=== PATIENT | female | born 1935 | race Caucasian/White ===

== ENCOUNTER → 2019-09-16 | Emergency (ER) | payer MEDICARE, BC ==
[~2019-09-16] VITALS: Ht 154.9 cm; Wt 38.5 kg
[~2019-09-16] MED LIST: Chloraseptic (Phenol) Spray 177ml MM PRN; DULO20CA50 PO; ESTRADIOL; FESO4TAB PO; IBUP200C5 PO; LEVO25TA2 PO; LEVO75TA PO; LORA-268 PO; LORazepam 0.5 MG tablet PO ONE; LORazepam 0.5 MG tablet PO PRN; LORazepam 1 MG tablet PO ONE; LORazepam 2 mg/ml vial IM ONE; OLANZapine **IM** 10 mg inj. IM ONE; OLANZapine 5mg rapidly disint. tablet PO ONE; OXYB5TAB29 PO; POLY17PO10 PO; QUET25TA PO; QUETIAPINE 50 MG TAB.SR.24H PO SCH; QUETIAPINE 50 MG TAB.SR.24H PO STA; QUEtiapine 25mg tablet PO ONE; QUEtiapine 25mg tablet PO STA; RISP2TAB97 PO; acetaminophen 325mg tablet PO ONE; cloNIDine 0.1 mg tablet PO PRN; diphenhydrAMINE 25mg capsule PO ONE; docusate sod 100mg capsule PO ONE; duloxetine 20mg capsule.DR PO ONE; haloperidol 5mg tablet PO ONE; hyDROXYzine 50 mg/ml injection ***IM only IM ONE; hydrOXYzine 25 MG tablet PO ONE; ibuprofen tablet 400 MG TABLET PO ONE; levoTHYROXINE 25mcg tablet PO ONE; levoTHYROXINE 75mcg tablet PO SCH; nicotine 7mg patch - 24hr TD SCH; protein shake 8oz. (237ml) PO SCH; quetiapine 100mg tablet PO ONE; quetiapine 100mg tablet PO SCH; risperiDONE 0.5mg tablet PO ONE; risperiDONE 0.5mg tablet PO PRN; risperiDONE 2mg tablet PO ONE; sulfamethoxazole/trimethoprim DS (800/160mg) tablet PO ONE; traZODone 150mg tablet PO SCH; traZODone 50mg tablet PO SCH; traZODone 50mg tablet PO STA
[2019-09-16 15:40] LABS: BASOPHILS # (AUTO) 0.1 X10'3 (0-0.2); BASOPHILS % (AUTO) 1.4 % (0-1); EOSINOPHILS # (AUTO) 0.1 X10'3 (0-0.9); EOSINOPHILS % (AUTO) 0.9 % (0-6); HEMATOCRIT 40.2 % (35.0-45.0); HEMOGLOBIN 13.9 g/dl (12.0-16.0); LYMPHOCYTES # (AUTO) 1.4 X10'3 (1.1-4.8); LYMPHOCYTES % (AUTO) 19.1 % (21-51); MEAN CORPUSCULAR HEMOGLOBIN 29.8 PG (27.0-31.0); MEAN CORPUSCULAR HGB CONC 34.4 g/dL (33.0-36.5); MEAN CORPUSCULAR VOLUME 86.4 FL (78-98); MEAN PLATELET VOLUME 6.8 FL (7.4-10.4); MONOCYTES # (AUTO) 0.5 X10'3 (0-0.9); NEUTROPHILS # (AUTO) 5.4 X10'3 (1.8-7.7); NEUTROPHILS % (AUTO) 71.6 % (42-75); PLATELET COUNT 358 X10'3 (140-440); RED BLOOD COUNT 4.66 X10'6 (4.20-5.60); RED CELL DISTRIBUTION WIDTH 14.7 % (11.5-14.5); WHITE BLOOD COUNT 7.6 X10'3 (4.5-11.0)
[2019-09-16 15:52] LABS: URINE AMPHETAMINE SCREEN NEGATIVE (Neg); URINE BARBITUATE SCREEN NEGATIVE (Neg); URINE BENZODIAZEPINES SCREEN NEGATIVE (Neg); URINE CANNABINOID SCREEN NEGATIVE (Neg); URINE COCAINE SCREEN NEGATIVE (Neg); URINE METHADONE SCREEN NEGATIVE (Neg); URINE OPIATE SCREEN NEGATIVE (Neg); URINE PHENCYCLIDINE SCREEN NEGATIVE (Neg)
[2019-09-16 15:56] LABS: ALANINE AMINOTRANSFERASE 23 U/L (12-78); ALBUMIN 3.9 G/DL (3.4-5.0); ALBUMIN/GLOBULIN RATIO 0.9 (1.1-1.5); ALKALINE PHOSPHATASE 66 IU/L (46-116); ANION GAP 9 (8-16); ASPARTATE AMINO TRANSFERASE 26 U/L (10-37); BILIRUBIN,TOTAL 0.5 MG/DL (0.1-1.0); BLOOD UREA NITROGEN 30 MG/DL (7-18); BUN/CREATININE RATIO 18.1 (6.6-38.0); CALCIUM 9.1 MG/DL (8.5-10.1); CHLORIDE 99 MMOL/L (99-107); CREATININE 1.66 MG/DL (0.40-0.90); SODIUM 137 MMOL/L (135-145); TOTAL PROTEIN 8.4 G/DL (6.4-8.2); eGFR 29 ML/MIN
[2019-09-16 16:05] LABS: ETHANOL < 0.010 GM/DL (0.0-0.010)
[2019-09-16 16:09] LABS: GLUCOSE 102 MG/DL (70-104)
--- NOTE | 2019-09-16 16:14 | NUR ---
NOTIFIED BY DR ONTIVEROS THAT PATIENT IN E.D. WITH 515O PLACED BY POLICE. PATIENT DOES NOT HAVE POWER IN HER HOME AND IT IS VERY COLD IN HER HOME. PER DR. ONTIVEROS, SHE LIVES ALONE, AND HAS NO FAMILY SUPPORT. HER FAMILY DISOWNED BECAUSE HER OF HER DIFFICULT BEHAVIORS. HE WILL CALL [facility] AFTER HE CLEARS HER MEDICALLY. WILL FOLLOW. Addendum: 10/10/19 at 0459 by ALENA Patient given APAP PO for right hip pain which is frequent.
[2019-09-16 16:27] LABS: CLARITY,URINE CLEAR (Clear); COLOR,URINE YELLOW (Yellow); GLUCOSE, URINE NEGATIVE (Neg); KETONES,URINE NEGATIVE (Neg); LEUKOCYTE ESTERASE ,URINE TRACE (Neg); NITRITES, URINE NEGATIVE (Neg); OCCULT BLOOD,URINE TRACE-INTACT (Neg); PROTEIN,URINE NEGATIVE (Neg); UROBILINOGEN,URINE 0.2 E.U/dL (0.2-1.0)
--- NOTE | 2019-09-16 16:27 | NUR ---
Pt assessed and has a wound on her right 2nd toe. Pt states she sees the clerical production worker and he changes her dressings once a month. Pt refuses to have dressing removed.
[2019-09-16 16:32] LABS: UA COLLECTION TYPE CLN CATCH MIDSTREAM
[2019-09-16 16:33] LABS: BACTERIA,URINE FEW /HPF (Neg); MUCUS STRANDS FEW /LPF (Neg); RBC,URINE 0-2 /HPF (0-2); SQUAMOUS EPITHELIAL CELL,UR MANY /LPF (FEW); WBC,URINE 0-4 /HPF (0-4)
--- NOTE | 2019-09-16 18:43 | NUR ---
Sitting in bed eating dinner tray.
[2019-09-16] MEDS: ibuprofen 200mg tablet PO SCH (20:28)
[2019-09-16] MEDS: oxybutynin 5mg tablet PO SCH (20:28)
--- NOTE | 2019-09-16 22:31 | NUR ---
Pt c/o of pain in arms and "my heart" EKG done shown to Dr. Franco. No further orders. Pt given haldol per order resting quietly in bed at this time.
--- NOTE | 2019-09-17 00:12 | NUR ---
Pt given 25mg Benadryl per order for insomnia. Pt contues mutiple repetitve requests.
--- NOTE | 2019-09-17 00:50 | NUR ---
Still unable to sleep. Ambulated with stand by assist 3x around nurses station. To bathroom voided brushed teeth. Back in bed lying quietly at this time.
--- NOTE | 2019-09-17 01:49 | NUR ---
Pt sleeping. Restless at times tlks in her sleep.
--- NOTE | 2019-09-17 02:53 | NUR ---
Pt sleeping quietly at this time.
[2019-09-17] MEDS: levoTHYROXINE 25mcg tablet PO SCH (07:56)
[2019-09-17] MEDS: oxybutynin 5mg tablet PO SCH ×2 (07:56→20:24)
--- NOTE | 2019-09-17 08:35 | NUR ---
SAFETY BREAKFAST TRAY DELIVERED TO BEDSIDE.
--- NOTE | 2019-09-17 09:06 | NUR ---
ASSUMED CARE OF PATIENT. RECEIVED REPORT FOR GRACE BENITEZ
--- NOTE | 2019-09-17 10:00 | NUR ---
pt has been ambulating around unit with her walker
--- NOTE | 2019-09-17 11:00 | NUR ---
pt has been ambulating around unit with her walker
--- NOTE | 2019-09-17 12:00 | NUR ---
pt has been ambulating around unit with her walker
--- NOTE | 2019-09-17 13:04 | NUR ---
pt has been ambulating around unit with her walker. pt keeps saying she wants to go home today
--- NOTE | 2019-09-17 14:19 | NUR ---
pt. ambulating to sink with walker.
--- NOTE | 2019-09-17 14:26 | NUR ---
pt. walking from bed to sink continuously. is in no distress.
--- NOTE | 2019-09-17 15:00 | NUR ---
pt ambulating around using her walker
--- NOTE | 2019-09-17 16:00 | NUR ---
pt ambulating around using her walker
--- NOTE | 2019-09-17 19:40 | NUR ---
Received report and assumed care of patient from EMMANUEL Fabian.
[2019-09-17] MEDS: ibuprofen 200mg tablet PO SCH (20:24)
--- NOTE | 2019-09-18 00:45 | NUR ---
The patient is sleeping in supine position. RR unlabored. No s/s of distress.
--- NOTE | 2019-09-18 02:33 | NUR ---
The patient is sleeping on her right side. RR unlabored. No s/s of distress.
--- NOTE | 2019-09-18 05:15 | NUR ---
The patient is awake and wandering around trying to find her "car keys" because she has to go to the bank. She's reassured that the witt don't open this early.
[2019-09-18] MEDS: levoTHYROXINE 25mcg tablet PO SCH (07:51)
[2019-09-18] MEDS: oxybutynin 5mg tablet PO SCH ×2 (08:25→21:41)
--- NOTE | 2019-09-18 08:29 | NUR ---
pt took meds and is now sitting down eating breakfast
--- NOTE | 2019-09-18 10:13 | NUR ---
called family for safe dc plan. her son jaden is poa [phone]
--- NOTE | 2019-09-18 10:16 | NUR ---
pt still up walking around room wanting to go home can be redirected with out to much effert
--- NOTE | 2019-09-18 12:25 | NUR ---
pt getting more aggatated ordered more risperdal and given pt is now in bed talking to self
--- NOTE | 2019-09-18 14:18 | NUR ---
pt up walking around still assisting on wanting to go home went into the bathroom and came out with shirt off. shirt placed back on and assised in to bed
--- NOTE | 2019-09-18 16:06 | NUR ---
in bed resting attipting to collect urine to see if she has a uti with incress in aggatation and confusion today
[2019-09-18] MEDS: ibuprofen 200mg tablet PO SCH (21:41)
--- NOTE | 2019-09-18 21:50 | NUR ---
The patient is sleeping on her right side. RR unlabored. No s/s of distress.
--- NOTE | 2019-09-18 22:54 | NUR ---
The patient is sitting on the side of her bed incomprehensibly talking to herself.
--- NOTE | 2019-09-19 00:58 | NUR ---
Patient continues to sit at her bedside talking to herself.
--- NOTE | 2019-09-19 02:30 | NUR ---
The patient is finally asleep on her right side. Resp unlabored. No s/s of distress.
--- NOTE | 2019-09-19 04:29 | NUR ---
The patient is asleep on her left side. Resp unlabored. No s/s of distress.
--- NOTE | 2019-09-19 06:45 | NUR ---
PT SLEEING, RESPIRATIONS SPONTENOUS, EVEN AND UNLABORED, NO S/S OF DISTRESS OR DISCOMFORT.
--- NOTE | 2019-09-19 08:25 | NUR ---
DR MARTINEZ CAME OVER QUICKLY TO EVALUATE PATIENT, RECEIVED VERBAL ORDER FOR 1MG RISPERDAL Q12H PRN AGITATION. DR TO RETURN LATER FOR FURTHER EVALUATION.
[2019-09-19] MEDS: levoTHYROXINE 25mcg tablet PO SCH (08:58)
[2019-09-19] MEDS: oxybutynin 5mg tablet PO SCH ×2 (08:58→21:06)
--- NOTE | 2019-09-19 11:21 | NUR ---
PT UP AND AMBULATORY TO BATHROOM A COUPLE TIMES WITH WALKER AND STANDBY ASSIST ED SITTER, PT PLACED IN CHAIR AT END OF BED WITH BEDSIDE TABLE TO EAT SOME JELLO AND WATER.
--- NOTE | 2019-09-19 13:06 | NUR ---
LUNCH TRAY PLACED AT BEDSIDE BY WENDY BENDER.
--- NOTE | 2019-09-19 13:36 | NUR ---
GIVING PRIMARY NURSE A BREAK, PT. SITTING IN CHAIR BY BEDSIDE IN NO DISTRESS.
--- NOTE | 2019-09-19 14:19 | NUR ---
PT INCREASINGLY AGITATED AND GETTING UP FREQUENTLY WALKING AROUND ROOM AND WALKING TO BATHROOM, DR MARTINEZ INFORMED RECEIVED VERBAL ORDER TO GIVE RISPERDAL 2 MG ONCE NOW AND CHANGE PREVIOUS ORDER FROM Q 12 HOURS TO RISPERDAL 1 MG Q 6 HOURS PRN AGITATION
--- NOTE | 2019-09-19 14:36 | NUR ---
MEDICATED PT WITH 2 MG RISPERDAL PER ORDERS, PT PLACED BACK IN BED TO TRY TO GET SOME REST.
--- NOTE | 2019-09-19 15:10 | NUR ---
TOVA WITH [facility] AT BEDSIDE FOR EVALUATION NOW.
--- NOTE | 2019-09-19 16:26 | NUR ---
TOVA WITH [facility] DISCUSSED POSSIBILITY FOR CT SCAN OR MRI OF BRAIN BUT THEN STATED HE WILL CALL DR VERA TO HAVE PROVIDER COMPLETE COGNITIVE EVALUATION AND SEE IF CAN BE DETERMINED IF ANY DEMENTIA/CONGNITIVE DECLINE.
--- NOTE | 2019-09-19 17:08 | NUR ---
PT. WALING AROUND UNIT USING THE WALKER WITH SUPERVISION BY RNJOHN.
--- NOTE | 2019-09-19 18:02 | NUR ---
LATASHA FROM [facility] STATED THAT DR VITAL WILL BE DOWN IN THE MORNING TO EVALUATE THE PATIENT FOR A DEMENTIA DIAGNOSIS
[2019-09-19] MEDS: risperiDONE 0.5mg tablet PO PRN (18:51)
--- NOTE | 2019-09-19 19:00 | NUR ---
SPOKE TO DR WALKER ABOUT PATIENT'S ITCHY SKIN AND THE FACT THAT THE PATIENT FELL DURING DAY SHIFT. PER FARHAN NGUYEN, WHO WAS SITITING IN A CHAIR WITH A MOBILE COMPUTER IN FRONT OF HER AND HER HEAD HIT WENDY'S FEET AND SHE LANDED ON THE FLOOR
--- NOTE | 2019-09-19 19:01 | NUR ---
I SAW PATIENT ON THE FLOOR AFTER SHE FELL AND SHE WAS GRABBING HER RIGHT HIP
[2019-09-19] MEDS: ibuprofen 200mg tablet PO SCH (20:00)
--- NOTE | 2019-09-19 20:00 | NUR ---
PATIENT AMBULATING AROUND UNIT WITH FFW, WITH TECH FOLLOWING HER. SHE WALKS OVER TO SINK
--- NOTE | 2019-09-19 21:42 | NUR ---
PATIENT APPEARS TO BE SLEEPING. ON RIGHT SIDE, RR EVEN AND UNLABORED
--- NOTE | 2019-09-19 22:33 | NUR ---
PATIENT WOKE UP AGITATED THRASHING ARMS ABOUT TELLING US TO GET AWAY FROM HER OR SHE IS CALLING THE POLICE. MADE FISTS AND PUNCHED AT TECH. ASSISTED TO BATHROOM WITH FFW
--- NOTE | 2019-09-19 23:31 | NUR ---
PATIENT WOKE UP AND WAS VERY AGGITATED AND RESISTIVE TO CARE. THE PATIENT WAS EXTREMELY UNSTEADY AND REQUIRED ASSISTANCE TO THE BATHROOM. AFTER RETURNING TO THE ROOM, THE PATAINT BECAME COMBATIVE IN THE FORMS OF PUNCHING, PINCHING, AND SCRATCHING. THE PATIENT WAS ALSO THREATENING TO SPIT AT STAFF. THERE IS A SMALL SKIN TEAR TO THE TOP OF THE RIGHT HAND A RESULT OF HER PUNCHING AT STAFF AND MISSING AND HITTING DIFFERENT OBJECTS SUCH THE CHAIR AND BED RAILS. A BANDAGE WAS PLACED OVER THE WOUND, PATIENT DOES NOT SEEM TO BE IN ANY DISTRESS AT THIS TIME OTHER THATN COMPLAINING OF PAIN FROM A FALL THAT TOOK PLACE ON DAY SHIFT.
--- NOTE | 2019-09-19 23:38 | NUR ---
PATIENT IS BACK IN BED AND IS DRAWING WITH A CRAYON AND PAPER.
--- NOTE | 2019-09-19 23:38 | NUR ---
PATIENT TAKEN TO XRAY.
--- NOTE | 2019-09-19 23:46 | NUR ---
PATIENT TOLD THE TECH THAT SHE "WANTS TO HOLD HER HEAD IN THE TOILET AND DROWN HER" TECH IS ASSISTING HER WALKING USING FFW TO THE BATHROOM
--- NOTE | 2019-09-20 00:43 | NUR ---
PATIENT STATED THAT SHE REALIZES THAT SHE NEEDS HELP AT HOME AND WANTS TO GO HOME WITH HELP. I DISCUSSED THE CONDITIONS OF HER HOUSE THAT SHE WAS FOUND LIVING IN: NO HEAT, NO ELECTRICITY WITH THE WINDOWS OPEN WHEN IT WAS COLD OUTSIDE PER THE POLICE
--- NOTE | 2019-09-20 01:35 | NUR ---
PATIENT APPEARS TO BE SLEEPING ON LEFT SIDE RR EVEN AND UNLABORED
--- NOTE | 2019-09-20 02:10 | NUR ---
PATIENT UP OUT OF BED: WANTS TO FIND HER RING, CALL [employer], AND GET HER CAR. REORIENTED PATIENT. REDIREC SHAQ PATIENT TO FOLDING HER BLANKETS
--- NOTE | 2019-09-20 02:55 | NUR ---
PATIENT APPEARS TO BE SLEEPING
--- NOTE | 2019-09-20 03:05 | NUR ---
PATITIENT LAYING ON LEFT SIDE: RR EVEN AND UNLABORED, APPEARS TO BE SLEEPING
--- NOTE | 2019-09-20 03:10 | NUR ---
DISCUSSED PLAN OF CARE WITH DR HOROWITZ. NOTED THAT PATIENT WAS PRESCRIBED TRAZADONE AT THE END OF 2018. DISCUSSED FREQUENT URINATION. DISCUSSED PRN RISPERIDAL: DR HOROWITZ RECOMMENDS KEEPING THR RISPERIDAL ON THE OCT.
--- NOTE | 2019-09-20 03:22 | NUR ---
PATIENT TO BATHROOM WITH ASSIST AND FFW: MEDIUM SOFT BROWN BM PATIENT TOOK TRAZADONE
--- NOTE | 2019-09-20 05:50 | NUR ---
DESITE TRAZADONE AND BENADRYL PATIENT BARELY SLEPT ALL NIGHT...MAYBE ONE AND AHALF HOURS PATIENT PULLED PANTS OFF AND POOPED THE BED
--- NOTE | 2019-09-20 08:13 | NUR ---
PT WAS UP TO BATHROOM, UNABLE TO URINATE. DR GRADY NOTIFIED, PT BLADDER SCANNED FOR 130ML. PT WAS STRAIGHT CATHED AND DRAINED 200ML CLEAR YELLOW URING, DR GRADY NOTIFIED AND SAMPLE SENT TO LAB Addendum: 09/20/[address] GRADY AT BEDSIDE FOR AM EVALUATION
--- NOTE | 2019-09-20 08:24 | NUR ---
SAFTEY BREAKFAST TRAY DELIVERED TO BEDSIDE
[2019-09-20] MEDS: levoTHYROXINE 25mcg tablet PO SCH (09:08)
[2019-09-20] MEDS: oxybutynin 5mg tablet PO SCH ×2 (09:09→19:57)
[2019-09-20 09:14] LABS: CLARITY,URINE SLIGHTLY CLOUDY (Clear); COLOR,URINE YELLOW (Yellow); GLUCOSE, URINE NEGATIVE (Neg); KETONES,URINE NEGATIVE (Neg); LEUKOCYTE ESTERASE ,URINE NEGATIVE (Neg); NITRITES, URINE NEGATIVE (Neg); OCCULT BLOOD,URINE TRACE-INTACT (Neg); PROTEIN,URINE NEGATIVE (Neg); UROBILINOGEN,URINE 0.2 E.U/dL (0.2-1.0)
[2019-09-20 09:15] LABS: UA COLLECTION TYPE STRAIGHT CATH
[2019-09-20 09:42] LABS: MUCUS STRANDS NONE SEEN /LPF (Neg); SQUAMOUS EPITHELIAL CELL,UR FEW /LPF (FEW); TRANSITIONAL EPI CELLS,URINE FEW /HPF
[2019-09-20 09:43] LABS: BACTERIA,URINE NONE SEEN /HPF (Neg); RBC,URINE 0-2 /HPF (0-2); WBC,URINE 0-4 /HPF (0-4)
--- NOTE | 2019-09-20 10:45 | NUR ---
Breaking Primary RN pt was just cleaned up by staff, supine in bed, no agitation observed
--- NOTE | 2019-09-20 12:31 | NUR ---
Breaking primary RN, pt ambulating to another pt bedside to request his help with a pen, now back in her chair at bedside
--- NOTE | 2019-09-20 15:00 | NUR ---
SOFTWARE VALIDATION TECHNICIAN FROM [facility] CALLED AND IS SCHEDULING PT FOR HER MOCA EVALUATION FOR CONSERVATORSHIP TOMORROW.
[2019-09-20] MEDS: risperiDONE 0.5mg tablet PO PRN (15:35)
--- NOTE | 2019-09-20 17:55 | NUR ---
PT BECOMES AGITATED, DEFIANT AND OCCASIONALLY PHYSICAL WHEN SHE IS NOT ALLOWED TO DO WHAT SHE WANTS. PT HAS BECOME ATTACHED TO CERTAIN STAFF MEMBERS AND WILL NOT FOLLOW THEIR DIRECTIONS WHEN LIMITS ARE SET
[2019-09-20] MEDS: nicotine 7mg patch - 24hr TD SCH ×2 (19:00→19:58)
--- NOTE | 2019-09-20 19:02 | NUR ---
PT ATE TWO BITES OF DINNER, REFUSED THE REST. PT WILL SIT FOR APPROX 3 MIN AND THEN COME BACK UP TO NURSES STATION DESPITE REDIRECTION TO BED/CHAIR
[2019-09-20] MEDS: ibuprofen 200mg tablet PO SCH ×2 (19:56→20:00)
--- NOTE | 2019-09-20 20:07 | NUR ---
PT REFUSED MOTRIN AT THIS TIME. PT LYING IN BED ON RIGHT SIDE
--- NOTE | 2019-09-20 21:10 | NUR ---
BED LINENS CHANGED AND NEW WARM BLANKETS GIVEN TO PT. PT IN BED TALKING TO HERSELF, WILL CONTINUE TO MONITOR
--- NOTE | 2019-09-20 21:46 | NUR ---
PT ATTEMPTED TO GET OUT OF BED "TO DO LAUNDRY AND PICK TOMATOES" BUT WAS UNSTEADY ON HER FEET, PT REDIRECTED TO BED. PT LYING ON BACK, TALKING TO HERSELF
--- NOTE | 2019-09-20 22:34 | NUR ---
PT ASLEEP ON RIGHT SIDE, RR EVEN AND UNLABORED, WILL CONTINUE TO MONITOR
--- NOTE | 2019-09-20 23:45 | NUR ---
PT ASLEEP ON LEFT SIDE, RR 13, EVEN AND UNLABORED, WILL CONTINUE TO MONITOR
--- NOTE | 2019-09-21 00:30 | NUR ---
PT ASLEEP ON RIGHT SIDE, RR EVEN AND UNLABORED, PT OCCASIONALLY TALKS IN SLEEP. WILL CONTINUE TO MONITOR
--- NOTE | 2019-09-21 01:57 | NUR ---
PT ASLEEP ON RIGHT SIDE, RR EVEN AND UNLABORED, WILL CONTINUE TO MONITOR
--- NOTE | 2019-09-21 02:50 | NUR ---
PT ASLEEP ON RIGHT SIDE, RR EVEN AND UNLABORED, PT OCCASIONALLY TALKS IN SLEEP. WILL CONTINUE TO MONITOR
--- NOTE | 2019-09-21 03:50 | NUR ---
PT ASLEEP ON RIGHT SIDE, RR EVEN AND UNLABORED, PT OCCASIONALLY TALKS IN SLEEP. WILL CONTINUE TO MONITOR
--- NOTE | 2019-09-21 04:50 | NUR ---
PT ASLEEP ON RIGHT SIDE, RR 14, EVEN AND UNLABORED, PT OCCASIONALLY TALKS IN SLEEP. WILL CONTINUE TO MONITOR
--- NOTE | 2019-09-21 05:51 | NUR ---
PT ASLEEP ON RIGHT SIDE, RR 14, EVEN AND UNLABORED, PT OCCASIONALLY TALKS IN SLEEP AND IS SOMEWHAT RESTLESS. WILL CONTINUE TO MONITOR
--- NOTE | 2019-09-21 06:58 | NUR ---
PT RESTING ON BACK EYES CLOSED RR EQUAL AND UNLABORED
[2019-09-21] MEDS: levoTHYROXINE 25mcg tablet PO SCH (07:00)
[2019-09-21] MEDS: oxybutynin 5mg tablet PO SCH (08:00)
--- NOTE | 2019-09-21 09:00 | NUR ---
PT VERY SLEEPY TODAY AFTER THE SERIQUEL LAST NOC
--- NOTE | 2019-09-21 10:20 | NUR ---
ATTEMPTED TO GET PT OOB TO USE THE RESTROOM. SHE WAS NOT ABLE TO SIT ON SIDE OF BED SHE IS DROWSY AND WANTS TO SLEEP. WHILE PT IS SLEEPING SHE TALKS IN HER SLEEP
--- NOTE | 2019-09-21 12:02 | NUR ---
PT APPEMPTING TO GET OUT OF BED. PT REDIRECTED TO STAY IN BED. PT CONITNUES TO BE DROUSY AND FALLS ASLEEP DURING CONVERSATIONS. PT REQUIRD DEPENDS TO BE CHANGED SHE VOIDED.
--- NOTE | 2019-09-21 13:58 | NUR ---
1 PERSON MAX ASSIST WITH WALKER TO BR. PT VOIDED, FULL BED CHANGE, AND GOWN CHANGE. PT BACK TO BED EATING BROWNIE AND MILK
--- NOTE | 2019-09-21 14:20 | NUR ---
PT AWAKE AND TALKING TO HERSELF NO NEEDS AT THIS TIME
--- NOTE | 2019-09-21 15:20 | NUR ---
PT AMBULATED TO BR WITH MAX ASSIST. BED CHANGED AND PTS GOWN CHANGED
--- NOTE | 2019-09-21 17:55 | NUR ---
PT CONTINUES RESTING IN BED EYES OPEN TALKING TO SELF.
--- NOTE | 2019-09-21 18:00 | NUR ---
PTS NEIGHBOR SE CAME TO CHECK ON PT SHE STATES SHE HAS LIVED NEXT TO PT FOR 3 YEARS. SHE STATES IF ANY ONE HAS ANY QUESTIONS THEY CAN CALL HER. PTS DAUGHTER AL [phone] AND BLAKE [phone] CALLED. INFORMED VP PRODUCTION OF PHONE NUMBERS
--- NOTE | 2019-09-21 18:30 | NUR ---
Assumed care of patient, pt. laying in bed at this time, requests to go to the bathroom. Two staff members helped to assist pt. to the BR with use of FWW r/t weakness and confusion. Pt. up eating dinner in bed at this time.
[2019-09-21] MEDS: nicotine 7mg patch - 24hr TD SCH (19:00)
--- NOTE | 2019-09-21 19:00 | NUR ---
Pt. up eating dinner at this time, she consumes 25% independently, however refuses to wear her dentures which are at bedside. RR are even and unlabored. Pt. continues to present as confused and appears to be responding to internal stimuli at this time AEB talking aloud to herself. She also makes frequent delusional requests, and becomes mildly agitated when staff does not comply, states repeatedly, "Take me upstairs!" Staff attempted to re-orient pt. to reality, however unsuccessful. Pt. begins standing up next to her bed and then sitting back down, fall precautions in place. Bed low and locked, non-skid socks in place, and pt. within sight of nurse's station. Pt. educated by staff to sit down to prevent a fall, pt. complies and lays down in her bed. Will continue to monitor. Addendum: 09/22/19 at 0117 by PARISA Administered pt. HS medicaions Oxybutynin and Motrin at this time, however forgot to scan.
--- NOTE | 2019-09-21 19:30 | NUR ---
Pt. sleeping soundly at this time, HOB elevated, rr even and unlabored. Will continue to monitor.
--- NOTE | 2019-09-21 22:46 | NUR ---
Pt. continues to sleep at this time, laying on back with HOB elevated, pt. makes slight body adjustments. Will continue to monitor.
[2019-09-22] MEDS: ibuprofen 200mg tablet PO SCH ×2 (00:22→20:39)
[2019-09-22] MEDS: oxybutynin 5mg tablet PO SCH ×3 (00:22→20:39)
[2019-09-22] MEDS: risperiDONE 0.5mg tablet PO PRN (00:22)
--- NOTE | 2019-09-22 00:30 | NUR ---
Pt. up to use the BR at this time, able to ambulate with FWW and staff assistance r/t to weak gait. Fall precautions remain in place. Pt. continues to be confused and slightly agitated, perseverating on "taking a shower." Attempted to re-orient pt. without success, PRN Risperdal administered, will continue to monitor. Pt. laying back down in bed at this time, continues to be internally preoccupied AEB by talking to herself and calling out random names of people she knows.
--- NOTE | 2019-09-22 00:47 | NUR ---
Obtained pictures of chronic bruising present on pt's bilateral upper and lower extremities in order to monitor, pictures placed in chart.
--- NOTE | 2019-09-22 02:22 | NUR ---
Pt. continues to be awake and restless, she is calling out names and appears to be responding to internal stimuli. Obtained order for Seroquel 25mg, will continue to monitor.
--- NOTE | 2019-09-22 03:27 | NUR ---
Patient sleeping comfortable, lying on her back. No distress noted, respirations even and unlabored.
--- NOTE | 2019-09-22 04:03 | NUR ---
MD made aware that pt. is not eating well and refuses to wear her dentures, nutrition consult ordered. Also, obtained pictures of bruising present pt's on bilateral hands and right lower extremity, placed in chart. Will endorse to AM shift, and continue to monitor.
--- NOTE | 2019-09-22 04:29 | NUR ---
Pt. awakens, laying in bed and yelling out names of unknown people at this time. She attempts to crawl out of bed, states, "I need to go call Carol, and find my wedding ring." Educated by staff that it is the middle of the night, however pt. continued to be restless. Pt. finally reported that she needed to use the BR, ambulated with use of FWW and assistance from staff per fall precautions.
--- NOTE | 2019-09-22 05:00 | NUR ---
Pt. laying in bed resting at this time, she continues to talk to herself in an incomprehensible way. Will continue to monitor.
--- NOTE | 2019-09-22 05:56 | NUR ---
Pt. laying in bed at this time with her eyes closed, she continues to talk aloud to herself at intervals, will continue to monitor.
[2019-09-22] MEDS: levoTHYROXINE 25mcg tablet PO SCH (07:00)
--- NOTE | 2019-09-22 07:00 | NUR ---
Pt for up and attempted to walk independently. Went to pt's side to assist in ambulating her. She then stated to me that she was looking for a broom to sweep the floor.
[2019-09-22] MEDS: nicotine 7mg patch - 24hr TD SCH (08:18)
--- NOTE | 2019-09-22 08:30 | NUR ---
Pt sitting at edge of bed, eating breakfast.
--- NOTE | 2019-09-22 11:41 | NUR ---
Pt resting with eyes closed, 18 respirations symmetrical and unlabored, no distress noted at this time
--- NOTE | 2019-09-22 12:30 | NUR ---
pt resting quietly with eyes closed, rr 16 unlabored, symmetrical and in no distress at this time
--- NOTE | 2019-09-22 13:30 | NUR ---
Pt resting in bed, got up with assistance to bathroom, ate lunch and resting quietly in bed
--- NOTE | 2019-09-22 14:30 | NUR ---
Pt awake and eating, pt having minor difficulty eating sandwich will order pureed diet.
--- NOTE | 2019-09-22 15:30 | NUR ---
Pt sitting quietly in chair drinking coffee. Pt called daughter and was stating "Get me outta here". Pt appears calm and in no distress
--- NOTE | 2019-09-22 16:08 | NUR ---
Neema MIGUEL from stated that she would be coming down to accomplish MOCA
--- NOTE | 2019-09-22 16:30 | NUR ---
Pt sitting in bed, speaking with MH MYRIAM Bethea for MOCA
--- NOTE | 2019-09-22 17:30 | NUR ---
MOCA completed with SHER PA, pt was repositioned in bed, normal 14 respirations
--- NOTE | 2019-09-22 18:30 | NUR ---
Pt sitting in bed, eating dinner.
[2019-09-22] MEDS: quetiapine 100mg tablet PO SCH (20:39)
--- NOTE | 2019-09-22 21:00 | NUR ---
Pt in bed, having finished dinner. Pt states she would like to take a shower, but informed there are not showers on this floor. RN offerred bed bath but pt declined at this time. Pt states she is upset that she is here "I need to get home, you see there were a lot of electical problems that they can't figure out. I need to call on that tomorrow." Pt able to answer simple questions logically and carry a conversation in linear thought, but is confused as to her current location "where people come to pick where they " and date/time "Wednesday in June, 5pm". Pt denies any previous mental health dgs or hospitlizations, stating "I just need to get back home." Pt she has 6 children; 4 dtrs and 2 sons. She states she talks to Alethea and Chilo. Denies SI, Depression, and Anxiety. Mood: Upset; Behavior: Cooperative; Though Process: Linear, intermittent confusion r/t to some assessment questions; A&O: x1 (name), Eye Contact: Good. Pt is TIMBI-SHA SHOSHONE and uses a FWW to ambulate. Upper dentures, but does not utilize, thus pt placed on pureed diet. Bilateral bruising to both arms, pt unable to state how or when incurred. Educated to request help with transfers and ambulation, to which pt verbalized understanding. Pt is in direct LOS of nursing station.
--- NOTE | 2019-09-23 00:30 | NUR ---
Pt sleeping on right side, breathing unlabored, no signs of distress.
--- NOTE | 2019-09-23 03:38 | NUR ---
Pt sleeping. No distress noted. Did rouse briefly, disoriented. This RN gently reminded pt where she was and current time. Pt thought it was time to get up for the day. This RN asked if pt needed assistance to the restroom, pt said no, and pulled the covers up under her chin. Warm blanket provided and pt returned to sleep.
--- NOTE | 2019-09-23 05:38 | NUR ---
Pt became confused during vitals, unsure of where she was or the time and required multiple reassurances that the staff were there to help her, she is in the hospital and it is still nighttime. Eventually, pt verbalized understanding of circumstance then returned to sleeping.
--- NOTE | 2019-09-23 06:07 | NUR ---
Pt requiring 2 person assist and guidance to restroom. Pt weak, disoriented, fatigued. Pt gown and depends changed; pt was soiled with urine and stool. Pt urinated while sitting on the toilet, cleaned by this RN with bathing wipes and then assisted back to bed (sheets and chucks were changed). This RN assisted pt with mouth wash and wiping of patients face to "freshen up" per pt request. As it is this RNs first time with this pt, tech informed this RN that this is different from pt's regular baseline. Generally pt is able to ambulate independently with FWW and independent in self-care. Pt had seroquel 50mg for the first time this evening; will pass in report to consider reducing HS dose. Pt currently sleeping after care provided.
--- NOTE | 2019-09-23 07:00 | NUR ---
Received report bigg Rubio. Pt currently sleeping on right side.
[2019-09-23] MEDS: levoTHYROXINE 25mcg tablet PO SCH (08:02)
[2019-09-23] MEDS: nicotine 7mg patch - 24hr TD SCH (08:02)
[2019-09-23] MEDS: oxybutynin 5mg tablet PO SCH ×2 (08:02→20:42)
--- NOTE | 2019-09-23 08:11 | NUR ---
Patient up to BR, took a.m. medications, is currently eating breakfast. No S/S of distress.
--- NOTE | 2019-09-23 09:55 | NUR ---
Rosa Isela kerrvel in [facility] - 09/23/19 at 0955 by ROSALVA Patient is sleeping on her rigt
--- NOTE | 2019-09-23 09:55 | NUR ---
Patient is sleeping on her right side, respirations are even and nonlabored. She made several phone calls for visitation.
--- NOTE | 2019-09-23 12:05 | NUR ---
Patient sleeping on right side. Respirations are even and nonlabored. No S/S of distress noted.
--- NOTE | 2019-09-23 13:16 | NUR ---
Lunch is here, patient sitting up at bedside eating independently. No S/S distress noted.
--- NOTE | 2019-09-23 15:12 | NUR ---
Patient making phone calls to her son. Pt. states her son is going to call tomorrow to see about getting patient released. Informed her that he could talk to her nurse tomorrow.
--- NOTE | 2019-09-23 16:51 | NUR ---
Patient with questions about belongings, went over belongings list with patient to assure her that her purse was here. Evaluated by [facility] this morning who believes that she is going to put on probate conservatorship. Pt. believes she will be leaving tomorrow.
--- NOTE | 2019-09-23 19:13 | NUR ---
Pt is currently sleeping on her right side at this time with visible respirations. She does not show signs of pain or discomfort. Pt is easily arousable, answers questions as asked but is still confused as to where she is or what the plan is. She is in direct line of sight of the nursing station.
[2019-09-23] MEDS: ibuprofen 200mg tablet PO SCH (20:42)
[2019-09-23] MEDS: quetiapine 100mg tablet PO SCH (20:43)
--- NOTE | 2019-09-23 21:01 | NUR ---
The patient is sitting up bed at the moment, awake but resting. She just returned from being helped to the bathroom. She denies pain or distress. She is in direct line of sight of the nursing station.
--- NOTE | 2019-09-23 22:11 | NUR ---
Pt is sleeping in bed at this time on her back. She is in direct line of sight of the nursing station and has visible respirations. She does not show signs of pain or discomfort.
[2019-09-23] MEDS: risperiDONE 0.5mg tablet PO PRN (22:57)
--- NOTE | 2019-09-23 23:42 | NUR ---
Pt is awake and is sitting on the edge of the bed folding her linen. She is calm and denies distress or pain. She was given resperdol prn to aide with her restlessness at 2315.
--- NOTE | 2019-09-24 01:33 | NUR ---
The patient is sleeping soundly on her right side in view of the nursing station. Respirations are visible. Pt does not show signs of stress or discomfort.
--- NOTE | 2019-09-24 03:37 | NUR ---
Pt repositioned in bed and checked for incontinence. Pt denies pain or discomfort at this time. She is easily arousable but tired and quickly back to sleep. She is in direct line of sight of the nursing station.
--- NOTE | 2019-09-24 04:50 | NUR ---
Pt is sleeping on her right side at this time with visible respirations. Pt does not show signs of pain or distress. She is in direct line of sight of the nursing station.
--- NOTE | 2019-09-24 05:28 | NUR ---
card services specialist contacted via fax for follow up of consultation.
--- NOTE | 2019-09-24 06:25 | NUR ---
pt is sleeping at his time. no concerns
--- NOTE | 2019-09-24 08:00 | NUR ---
pt is awake. asking for coffee.
[2019-09-24] MEDS: levoTHYROXINE 25mcg tablet PO SCH (08:11)
[2019-09-24] MEDS: oxybutynin 5mg tablet PO SCH ×2 (08:11→20:46)
[2019-09-24] MEDS: nicotine 7mg patch - 24hr TD SCH (08:11)
--- NOTE | 2019-09-24 08:30 | NUR ---
Note corinne in ED - 09/24/19 at 1043 by ANGELO PT IS SITTING UPRIGHT IN BED AT THIS TIME EATING BREAKFAST. PT IS ABLE TO FEED SELF INDEPENDENTLY. RESPIRATIONS ARE EVEN AND UNLABORED. NO S/S OF PAIN OR DISCOMFORT.
--- NOTE | 2019-09-24 09:00 | NUR ---
pt is eating breakfast
--- NOTE | 2019-09-24 10:00 | NUR ---
pt is sitting up in her bed. walks around the unit with her walker
--- NOTE | 2019-09-24 10:40 | NUR ---
Note corinne in ED - 09/24/19 at 1044 by ANGELO PT REPOSITIONED ONTO RIGHT SIDE WITH PILLOWS UNDER HIPS AND BETWEEN LEGS FOR SUPPORT. PT IS IN DIRECT LINE OF SIGHT OF THE NURSING STATION AND HAS VISIBLE RESPIRATIONS. WILL CONTINUE TO MONITOR.
--- NOTE | 2019-09-24 11:00 | NUR ---
pt is taking a nap
--- NOTE | 2019-09-24 12:00 | NUR ---
pt is eating lunch
--- NOTE | 2019-09-24 12:00 | NUR ---
Rosa Isela sun in [facility] - 09/24/19 at 1433 by CARMELO pt is eating breakfast
--- NOTE | 2019-09-24 13:00 | NUR ---
pt is resting in her bed
--- NOTE | 2019-09-24 14:33 | NUR ---
pt is sleeping no concerns at this time
--- NOTE | 2019-09-24 15:00 | NUR ---
pt is sleeing
--- NOTE | 2019-09-24 16:08 | NUR ---
report given to handsel
--- NOTE | 2019-09-24 16:13 | NUR ---
Pt asleep on right side in no apparent distress. Respirations are even and unlabored.
--- NOTE | 2019-09-24 18:30 | NUR ---
Received report and assumed care of patient that is lying in bed.
--- NOTE | 2019-09-24 20:30 | NUR ---
The patient is awake and pacing the unit.
[2019-09-24] MEDS: ibuprofen 200mg tablet PO SCH (20:46)
[2019-09-24] MEDS: quetiapine 100mg tablet PO SCH (20:47)
--- NOTE | 2019-09-24 22:30 | NUR ---
The patient is asleep on her right side. RR unlabored. No s/s of distress.
--- NOTE | 2019-09-24 22:47 | NUR ---
The patient is awake, sitting in the recliner next to her bed. She is going through her belongings at bedside. She has been reminded that it is night time and she should try to rest. She responded by saying that she thought it was the morning.
[2019-09-24] MEDS: risperiDONE 0.5mg tablet PO PRN (23:03)
--- NOTE | 2019-09-25 00:30 | NUR ---
Patient continues to sleep on her right side. RR unlabored. No s/s of distress.
--- NOTE | 2019-09-25 03:19 | NUR ---
The patient is now sleeping on her left side. No s/s of distress.
--- NOTE | 2019-09-25 04:55 | NUR ---
The patient is sleeping on her left side. RR unlabored. No s/s of distress.
--- NOTE | 2019-09-25 06:15 | NUR ---
PT IS UP WALKING TO BATHROOM WITH WALKER, [employer] ASSISTED PT BY OPENING DOOR, PT WALKS INDEPENDENTLY WITH WALKER, STANDBY WITH ED SITTER.
[2019-09-25] MEDS: risperiDONE 0.5mg tablet PO PRN ×2 (07:46→20:13)
[2019-09-25] MEDS: acetaminophen 325mg tablet PO PRN (07:46)
[2019-09-25] MEDS: levoTHYROXINE 25mcg tablet PO SCH (07:47)
[2019-09-25] MEDS: oxybutynin 5mg tablet PO SCH ×2 (07:47→20:14)
[2019-09-25] MEDS: nicotine 7mg patch - 24hr TD SCH (07:48)
--- NOTE | 2019-09-25 08:16 | NUR ---
PT MEDICATED PER ORDERS, PT SITTING UP EATING BREAKFAST TRAY, NO S/S OF DISTRESS, DISCOMFORT OR AGITATION AT THIS TIME, PT IN LINE OF SITE OF NURSES STATION
--- NOTE | 2019-09-25 10:17 | NUR ---
PT SLEEPING, RESPIRATIONS SPONTANEOUS, EVEN AND UNLABORED, NO S/S OF DISTRESS, DISCOMFORT OR AGITATION, PT IN LINE OF SITE NURSES STATION. PT HAD FINISHED EATING BREAKFAST TRAY.
--- NOTE | 2019-09-25 10:56 | NUR ---
NOTE FROM LATASHA IN [facility] CALLED 09/19/2019 AND INFORMED OVERFLOW STAFF THAT DR VERA WAS TO DO A COGNITIVE EVALUATION TO DETERMINE DEMENTIA BUT NO NOTE AFTER THAT FROM DR VERA, CALLED LOLIS IN [facility] TO ASK DR VERA TO COME EVALUATE PT
--- NOTE | 2019-09-25 11:06 | NUR ---
[facility]A FORM TOTAL SCORE 02/26 PAPER IN CHART, RECEIVED CALL FROM [facility] INFORMED HER PER LEANDRO SOC SERVICE THAT IN ORDER TO MOVE FORWARD WITH CONSERVATORSHIP THAT WE NEED COGNITIVE EVALAUTION AND DIAGNOSIS, SHE WILL FORWARD MESSAGE TO DR VERA AND ONCE THIS IS COMPLETE LEANDRO CAN FORWARD INFO TO PUBLIC [facility].
--- NOTE | 2019-09-25 11:21 | NUR ---
PT SLEEPING, RESPIRATIONS SPONTANEOUS, EVEN AND UNLABORED, NO S/S OF DISTRESS, DISCOMFORT OR AGITATION, PT IN LINE OF SITE NURSES STATION.
--- NOTE | 2019-09-25 11:49 | NUR ---
PT AMBULATORY TO NURSES STATION INDEPENDENTLY WITH WALKER, PT STATES SHE HAS AN APPOINTMENT AND AWAITING TO RECEIVE IMPORTANT CALLS, INFORMED PT SHE DOES NOT HAVE ANY APOINTMENT AND WILL TRANSFER ANY CALLS THAT PT RECEIVES
[2019-09-25] MEDS: lactose-reduced food (Ensure High Protein) 237ml bottle PO SCH ×3 (14:30→18:25)
--- NOTE | 2019-09-25 16:18 | NUR ---
RECEIVED CALL FROM PT DAUGHTER AL PH# [phone] WHO IS TAKING CARE OF HER FATHER PT SPOUSE SHE IS STILL TO BUT AND LIVING SEPARATELY, AL LIVES IN [facility], PT'S SON HAS GENERAL POWER OF RENAL NURSE AND HAS SENT A LETTER TO GIVE PERMISSION TO [place]LA TURK FRIEND/NEIGHBOR [phone] TO ACCESS HOUSE TO OBTAIN NEEDED PAPERWORK FOR PT AND PT SPOUSE FOR APPLICATION OF MEDI-CALL. CALLED LEANDRO CHINESE INSTRUCTOR AND SHE WILL CALL KASSANDRA AND AL TODAY TO DISCUSS PT SITUATION. AT THIS POINT LEANDRO FEELS THAT KASSANDRA NEEDS TO COMPLETE THE [facility] MEDI-ZOIL[facility] APPLICATION TO DETERMINE WHAT ADDITIONAL PAPERWORK OR INFORMATION IS NEEDED. DETERMINED PT HAS CAR AND HOUSE LACEY LOCKED UP IN PURSE IN AMBULANCE [place]AY [place]OCK[place]. PER LEANDRO KEYS SHOULD NOT BE GIVEN TO NEIGHBOR AT THIS TIME POWER OF RENAL NURSE AND NEIGHBOR POSSIBLY HAD RESTRAINING ORDER PLACED.
[2019-09-25] MEDS: ibuprofen 200mg tablet PO SCH (20:12)
[2019-09-25] MEDS: quetiapine 100mg tablet PO SCH (20:13)
--- NOTE | 2019-09-25 21:39 | NUR ---
pt is up to the restroom, walking with walker with no issues.
--- NOTE | 2019-09-25 23:04 | NUR ---
pt is sleeping, rr unlabored, no s/s of distress noted.
--- NOTE | 2019-09-26 02:47 | NUR ---
pt woke up to use restroom, pt ambulated with walker and assistance, as she was slightly unsteady on her feet. pt then fell asleep on toilet. vitals were taken and were wnl. pt had no complaints.
--- NOTE | 2019-09-26 03:17 | NUR ---
pt continues to sleep, no s/s of distress noted.
--- NOTE | 2019-09-26 06:15 | NUR ---
Patient just awoke and sat up in bed asking for her walker. No distress observed. Continue to monitor.
[2019-09-26] MEDS: levoTHYROXINE 25mcg tablet PO SCH (07:41)
[2019-09-26] MEDS: lactose-reduced food (Ensure High Protein) 237ml bottle PO SCH ×3 (08:00→13:16)
--- NOTE | 2019-09-26 08:17 | NUR ---
Patient sitting at the edge of bed eating breakfast. No distress observed. Continue to monitor.
[2019-09-26] MEDS: acetaminophen 325mg tablet PO PRN (08:50)
[2019-09-26] MEDS: oxybutynin 5mg tablet PO SCH ×2 (08:52→20:00)
[2019-09-26] MEDS: nicotine 7mg patch - 24hr TD SCH (08:53)
--- NOTE | 2019-09-26 10:17 | NUR ---
Patient being assisted to BR with walker. No distress observed. Continue to monitor.
--- NOTE | 2019-09-26 12:10 | NUR ---
Dr. Valentine, pyschiatrist speaking with patient. No distress observed. Continue to monitor.
--- NOTE | 2019-09-26 12:39 | NUR ---
Patient sleeping in recliner next to her bed. Patient easily awakens for questions. Continue to monitor.
--- NOTE | 2019-09-26 14:58 | NUR ---
Patient sleeping in bed on right side. No distress observed. Continue to monitor.
--- NOTE | 2019-09-26 16:10 | NUR ---
Patient sleeping on right side. No distress observed. Continue to monitor.
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
[2019-09-26] MEDS: ibuprofen 200mg tablet PO SCH (20:00)
--- NOTE | 2019-09-27 00:18 | NUR ---
pt sleeping on her right side. tray near bed. appears to be in no distress.
--- NOTE | 2019-09-27 00:52 | NUR ---
LE: Pt sleeping when I assumed care at 1830. Pt awakened at 2009 for assessment and to updated her that dinner was here and I had evening meds (ibuprofen and ditropan). Pt required louder voice and light shaking to awaken. She opened her eyes and asked me what time it was and stated she was not hungry. Stated she felt "very tired...i just want to sleep". Updated of the evening meds and she requested not to take them tonight. Denied Pain or ching other needs. Minimally participated in my nursing and psych assessment. Pt appears comfortable, lying on her right side with blankets covering to her shouders. Ensure Drink at bedside is 3/4 empty and Is likely from her lunch meal.
--- NOTE | 2019-09-27 03:00 | NUR ---
Pt woke up and asked what time it was and what the date was. I asked if she needed to use the restroom and reported that since i'vd been here (9 hrs) she has not been up. She stated she did need the BR. Pt sat up and states weakness and that she cannot get up . bsc brought to her.
--- NOTE | 2019-09-27 03:36 | NUR ---
Pt requiring minimal assist to stand and transfer to bsc. Voiding 300 cc's dark strong smelling urine. Pts pull-up underware soiled with urine. changed into clean brief and hospital pants. Pt reporting thirst. Drinking water and given aishwarya crackers and jello. currently sitting on edge of bed snacking.
--- NOTE | 2019-09-27 05:56 | NUR ---
Pt sleeping. Cooperative when awakened for AM VS.
[2019-09-27] MEDS: nicotine 7mg patch - 24hr TD SCH (08:05)
[2019-09-27] MEDS: oxybutynin 5mg tablet PO SCH ×2 (08:06→19:47)
[2019-09-27] MEDS: duloxetine 20mg capsule.DR PO SCH (08:06)
[2019-09-27] MEDS: lactose-reduced food (Ensure High Protein) 237ml bottle PO SCH ×3 (08:06→18:31)
[2019-09-27] MEDS: acetaminophen 325mg tablet PO PRN (08:06)
[2019-09-27] MEDS: levoTHYROXINE 75mcg tablet PO SCH (08:06)
--- NOTE | 2019-09-27 19:00 | NUR ---
PATIENT AT CORNER OF BED EATING DINNER WILL CONTINUE TO MONITOR
[2019-09-27] MEDS: ibuprofen 200mg tablet PO SCH (19:47)
--- NOTE | 2019-09-27 22:00 | NUR ---
PATIENT IN BED COVERS ON EYES CLOSED RR EVEN UN LABORED NO OBSERVABLE S/S OF ACUTE STRESS AT THIS TIME WILL CONTINUE TO MONITOR
--- NOTE | 2019-09-27 23:48 | NUR ---
PATIWENT IN BED LYING ON RIGHT SIDE COVERS ON EYES CLOSED RR EVEN UN LABORED NO OBSERVABLE S/S OF ACUTE STRESS AT THIS TIME WILL CONTINUE TO MONITOR
--- NOTE | 2019-09-28 02:02 | NUR ---
PATIENT LYING SUPINE IN BED COVERS ON EYES CLOSED RR EVEN UN LABORED NO OBSERVABLE S/S OF ACUTE STRESS AT THIS TIME WILL CONTINUE TO MONITOR
--- NOTE | 2019-09-28 02:38 | NUR ---
patient up to use the restroom, patient is being assisted by sitter
--- NOTE | 2019-09-28 03:35 | NUR ---
patient back in bed after using restroom lying supine covers on knees bent rr even unlabored no observable s/s of acute stress at this time will continue to monitor
--- NOTE | 2019-09-28 05:22 | NUR ---
PATIENT UP TO RESTROOM WITH ASSISTANCE FROM SITTER, PATIENT BACK TO BED SITTING ON SIDE OF BED SUPPLIED PATIENT WITH FRESH WATER FOR TOOTH BRUSHING, RR EVEN UN LABORED NO OBSERVABLE S/S OF ACUTE STRESS AT THIS TIME WILL CONTINUE TO MONITOR
--- NOTE | 2019-09-28 06:00 | NUR ---
asleep no conerns
--- NOTE | 2019-09-28 06:21 | NUR ---
SBAR TO DANIE BENITEZ NO QUESTIONS OR CONCERNS AFTER ASSUMING CARE
--- NOTE | 2019-09-28 07:00 | NUR ---
sitting on side of bed no concerns
[2019-09-28] MEDS: levoTHYROXINE 75mcg tablet PO SCH (07:04)
--- NOTE | 2019-09-28 08:00 | NUR ---
sitting on side of bed no concerns
[2019-09-28] MEDS: lactose-reduced food (Ensure High Protein) 237ml bottle PO SCH ×3 (08:16→18:02)
[2019-09-28] MEDS: duloxetine 20mg capsule.DR PO SCH (08:24)
[2019-09-28] MEDS: nicotine 7mg patch - 24hr TD SCH (08:25)
[2019-09-28] MEDS: oxybutynin 5mg tablet PO SCH ×2 (08:58→20:00)
--- NOTE | 2019-09-28 09:00 | NUR ---
sitting on side of bed no concerns
--- NOTE | 2019-09-28 10:00 | NUR ---
sitting on side of bed no concerns
--- NOTE | 2019-09-28 11:00 | NUR ---
sitting on side of bed no concerns
--- NOTE | 2019-09-28 12:00 | NUR ---
sitting on side of bed no concerns
[2019-09-28] MEDS: polyethylene glycol 3350 17gm powd pack PO PRN (13:00)
--- NOTE | 2019-09-28 14:36 | NUR ---
Sitting in bed no concerns
--- NOTE | 2019-09-28 15:00 | NUR ---
Asleep no concerns
--- NOTE | 2019-09-28 16:00 | NUR ---
Asleep no concerns
--- NOTE | 2019-09-28 17:00 | NUR ---
Asleep no concerns
--- NOTE | 2019-09-28 18:47 | NUR ---
This patient is awake and well oriented. She exhibits minor forgetfulness. Patient is upbeat, she tells this mortgage loan underwriter she is happy, "I'm feeling better now that they have adjusted my medications, my depression is gone." Patient denies S/I, H/I, or any hallucinations. The patient is goal oriented, she states she looks forward to going home soon. Patient also believes her bank is going to lower her mortgage and that will ease a financial burden. Addendum: 09/28/19 at 1855 by ALENA Patient is advised that she is in a safe place, she exhibits understanding.
--- NOTE | 2019-09-28 20:00 | NUR ---
Patient complains of bilateral eye pain, some agitation is present now. Patient reassured that she is in the hospital. Some disorientation is present. Patient ate some apple sauce.
--- NOTE | 2019-09-28 21:30 | NUR ---
Patient is becoming more agitated. She attempts to climb out of bed. Patient redirected with limited success. A tech is sitting at bedside for patient safety.
[2019-09-28] MEDS: ibuprofen 200mg tablet PO SCH (21:34)
[2019-09-28] MEDS: QUEtiapine 25mg tablet PO PRN (22:16)
--- NOTE | 2019-09-28 22:16 | NUR ---
Patient given Seroquel 25 mg PO for agitation.
[2019-09-28] MEDS: risperiDONE 0.5mg tablet PO PRN (22:28)
--- NOTE | 2019-09-28 22:28 | NUR ---
Patient remains highly agitated. Risperidone 1mg given PO.
--- NOTE | 2019-09-29 00:21 | NUR ---
Patient yelling and talking to non existant persons. No sedation or sleep from previous meds. Visteral 25 mg given IM.
--- NOTE | 2019-09-29 01:09 | NUR ---
Patient exhibits agression, intermittent anger, visual hallucinations, yelling at someone near the sealing. Patient did not become sedate or sleepy with previous Rx meds including IM Visteril. Ativan will be given.
--- NOTE | 2019-09-29 01:21 | NUR ---
0.5 mg of Ativan given IM. Patient has sitter at bedside to keep her in bed until sedation resolves agression.
--- NOTE | 2019-09-29 01:37 | NUR ---
Patient remains awake and talking, she is in bed with tech sitting at bedside.
--- NOTE | 2019-09-29 04:05 | NUR ---
Patient sleeping low fowlers with her right leg flexed.
--- NOTE | 2019-09-29 05:38 | NUR ---
Patient sleeping low fowlers position.
[2019-09-29] MEDS: lactose-reduced food (Ensure High Protein) 237ml bottle PO SCH ×3 (08:02→18:01)
[2019-09-29] MEDS: nicotine 7mg patch - 24hr TD SCH (08:50)
[2019-09-29] MEDS: oxybutynin 5mg tablet PO SCH ×2 (08:52→19:19)
[2019-09-29] MEDS: levoTHYROXINE 75mcg tablet PO SCH (08:52)
[2019-09-29] MEDS: duloxetine 20mg capsule.DR PO SCH (08:52)
--- NOTE | 2019-09-29 12:49 | NUR ---
relieving RN for break, pt amb with steady gait, using walker to restroom, pt is calm and cooperative
--- NOTE | 2019-09-29 16:13 | NUR ---
Family called concerned patient was slurring words, patient upon my assessment has normal speech per yolanda.
--- NOTE | 2019-09-29 18:30 | NUR ---
Assumed care of patient, pt. sitting up at bedside eating dinner at this time, rr even and unlabored.
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
[2019-09-29] MEDS: QUEtiapine 25mg tablet PO PRN ×2 (19:19→21:52)
[2019-09-29] MEDS: ibuprofen 200mg tablet PO SCH (19:19)
[2019-09-29] MEDS: risperiDONE 0.5mg tablet PO PRN (19:19)
--- NOTE | 2019-09-29 20:30 | NUR ---
Nursing Note: Attempted to complete 1:1 at bedside, pt. remains confused and disoriented with flight of ideas. She denies any S/I or H/I, however appears to be experiencing delusions and possible A/V/BLAND AEB continual talking aloud to herself and to people who are not there. However, she is calm and redirectable at this time, will continue to monitor.
--- NOTE | 2019-09-29 22:30 | NUR ---
Pt. continues to be restless at this time, frequently getting out of bed and wandering around her room. She continues to talk aloud to herself, however she is redirectable by staff. Will continue to monitor.
--- NOTE | 2019-09-29 23:12 | NUR ---
Pt. unable to sleep at this time, sitting on edge of bed talking to herself, remains confused regarding time of day. Requesting breakfast and coffee from staff, attempted to reorient without success. Obtained order from Dr. Marsh for Vistaril 25mg.
--- NOTE | 2019-09-30 00:35 | NUR ---
Pt. intermittantly laying in bed and up ambulating near the foot of her bed. She continues to talk non-sensically to herself about attending doctor's appointments, finding her checkbook, and having imaginary conversations with family members. Redirected pt. back to bed, and at this time found Vistaril at bedside that pt. had apparently cheeked earlier and spit out. Will notify . Addendum: 09/30/19 at 0109 by PARISA Will endorse to AM shift possible medicatoin "cheeking" precautions.
--- NOTE | 2019-09-30 00:50 | NUR ---
Pt. finally appears to be sleeping at this time, will talk to herself occassionally in her sleep, however appears to be resting comfortably.
--- NOTE | 2019-09-30 01:28 | NUR ---
Pt. continues to talk non-sensically to herself at this time, Dr. Marsh notified. Obtained orders for Zyprexa 5mg and Vistaril 25mg IM.
--- NOTE | 2019-09-30 02:39 | NUR ---
Pt. laying on her back in bed with her eyes closed at this time, she continues to talk aloud to herself at intervals.
[2019-09-30] MEDS: risperiDONE 0.5mg tablet PO PRN (04:21)
--- NOTE | 2019-09-30 04:30 | NUR ---
Pt. continues to awaken intermittently. Awoke at this time and attempted to crawl out of bed, stated, "I have to go do my laundry." This nurse attempted to reorient, however pt. became agitated, PRN Risperdal administered, will continue to monitor.
--- NOTE | 2019-09-30 05:00 | NUR ---
Pt. had an incontinent eppisode, assisted to ambulate to the BR with use of FWW by staff, bed sheets and clothing changed.
--- NOTE | 2019-09-30 05:22 | NUR ---
MEDICATION CHEEKING PRECAUTIONS: Mutiple medication tablets found under pt's bed. Pt. has been cheeking and spitting out medications. Medications swept up and disposed of properly. Charge nurse notified, she will notify providers. Will endorse to AM shift.
--- NOTE | 2019-09-30 06:09 | NUR ---
Pt. laying in bed appears to be sleeping at this time, rr even and unlabored. Fall precautions remain in place.
[2019-09-30] MEDS: levoTHYROXINE 75mcg tablet PO SCH (07:41)
[2019-09-30] MEDS: duloxetine 20mg capsule.DR PO SCH (07:41)
[2019-09-30] MEDS: nicotine 7mg patch - 24hr TD SCH (07:45)
[2019-09-30] MEDS: lactose-reduced food (Ensure High Protein) 237ml bottle PO SCH ×3 (08:50→18:58)
[2019-09-30] MEDS: oxybutynin 5mg tablet PO SCH ×2 (08:52→20:36)
[2019-09-30 09:25] LABS: CLARITY,URINE CLEAR (Clear); COLOR,URINE YELLOW (Yellow); GLUCOSE, URINE NEGATIVE (Neg); KETONES,URINE NEGATIVE (Neg); LEUKOCYTE ESTERASE ,URINE LARGE (Neg); NITRITES, URINE POSITIVE (Neg); OCCULT BLOOD,URINE MODERATE (Neg); PH,URINE 5.5 (4.8-8.0); PROTEIN,URINE NEGATIVE (Neg); UROBILINOGEN,URINE 0.2 E.U/dL (0.2-1.0)
[2019-09-30 09:44] LABS: UA COLLECTION TYPE CLN CATCH MIDSTREAM
[2019-09-30 09:45] LABS: BACTERIA,URINE 4+ /HPF (Neg); MUCUS STRANDS FEW /LPF (Neg); RBC,URINE 0-2 /HPF (0-2); SQUAMOUS EPITHELIAL CELL,UR FEW /LPF (FEW); WBC,URINE 50-100 /HPF (0-4)
--- NOTE | 2019-09-30 10:24 | NUR ---
Primary RN sent on break. Pt. resting on right side, does not seem to be in distress.
[2019-09-30] MEDS: polyethylene glycol 3350 17gm powd pack PO PRN (11:02)
[2019-09-30 14:09] LABS: BASOPHILS # (AUTO) 0.1 X10'3 (0-0.2); BASOPHILS % (AUTO) 0.8 % (0-1); EOSINOPHILS # (AUTO) 0.1 X10'3 (0-0.9); HEMATOCRIT 35.1 % (35.0-45.0); HEMOGLOBIN 11.9 g/dl (12.0-16.0); LYMPHOCYTES # (AUTO) 1.6 X10'3 (1.1-4.8); LYMPHOCYTES % (AUTO) 20.7 % (21-51); MEAN CORPUSCULAR HEMOGLOBIN 29.5 PG (27.0-31.0); MEAN CORPUSCULAR HGB CONC 33.9 g/dL (33.0-36.5); MEAN CORPUSCULAR VOLUME 86.9 FL (78-98); MEAN PLATELET VOLUME 7.6 FL (7.4-10.4); MONOCYTES # (AUTO) 0.6 X10'3 (0-0.9); NEUTROPHILS # (AUTO) 5.3 X10'3 (1.8-7.7); NEUTROPHILS % (AUTO) 69.5 % (42-75); PLATELET COUNT 303 X10'3 (140-440); RED BLOOD COUNT 4.04 X10'6 (4.20-5.60); RED CELL DISTRIBUTION WIDTH 14.9 % (11.5-14.5); WHITE BLOOD COUNT 7.7 X10'3 (4.5-11.0)
[2019-09-30 14:23] LABS: ALANINE AMINOTRANSFERASE 21 U/L (12-78); ALBUMIN 3.2 G/DL (3.4-5.0); ALBUMIN/GLOBULIN RATIO 0.8 (1.1-1.5); ALKALINE PHOSPHATASE 71 IU/L (46-116); ANION GAP 6 (8-16); ASPARTATE AMINO TRANSFERASE 20 U/L (10-37); BILIRUBIN,TOTAL 0.6 MG/DL (0.1-1.0); BLOOD UREA NITROGEN 35 MG/DL (7-18); BUN/CREATININE RATIO 25.2 (6.6-38.0); CALCIUM 9.4 MG/DL (8.5-10.1); CHLORIDE 105 MMOL/L (99-107); CREATININE 1.39 MG/DL (0.40-0.90); GLUCOSE 126 MG/DL (70-104); POTASSIUM 3.4 MMOL/L (3.5-5.1); SODIUM 138 MMOL/L (135-145); TOTAL CARBON DIOXIDE 26.8 MMOL/L (24-32); TOTAL PROTEIN 7.4 G/DL (6.4-8.2); eGFR 36 ML/MIN
--- NOTE | 2019-09-30 19:06 | NUR ---
PT is sitting up in bed eating her dinner. She talks about a doctor named Alethea that she needs to make an apointment with but cannot remember the phone number. RR WNL, no signs or symptoms of distress at this time.
[2019-09-30] MEDS: ibuprofen 200mg tablet PO SCH (20:36)
[2019-09-30] MEDS: sulfamethoxazole/trimethoprim DS (800/160mg) tablet PO SCH (20:36)
--- NOTE | 2019-09-30 22:00 | NUR ---
Pt gets up and uses the restroom . She is leasant and easily redirectable. PT lays back down in bed.
--- NOTE | 2019-10-01 01:06 | NUR ---
Pt gets up and uses the restroom, lays back down and is heard mumbling in bed. She remains calm, RR WNL.
--- NOTE | 2019-10-01 07:00 | NUR ---
pt is resting in his room. no medical concerns at this time.
[2019-10-01] MEDS: oxybutynin 5mg tablet PO SCH ×2 (08:46→22:29)
[2019-10-01] MEDS: nicotine 7mg patch - 24hr TD SCH (08:46)
[2019-10-01] MEDS: sulfamethoxazole/trimethoprim DS (800/160mg) tablet PO SCH ×2 (08:46→22:17)
[2019-10-01] MEDS: duloxetine 20mg capsule.DR PO SCH (08:49)
[2019-10-01] MEDS: levoTHYROXINE 75mcg tablet PO SCH (08:51)
[2019-10-01] MEDS: lactose-reduced food (Ensure High Protein) 237ml bottle PO SCH ×3 (08:58→18:27)
--- NOTE | 2019-10-01 09:00 | NUR ---
pt is resting
--- NOTE | 2019-10-01 11:00 | NUR ---
pt is resting in his room. no medical concerns at this time.
--- NOTE | 2019-10-01 12:00 | NUR ---
pt resting in his room
--- NOTE | 2019-10-01 14:00 | NUR ---
pt resting in his room
--- NOTE | 2019-10-01 16:00 | NUR ---
pt resting in her room
--- NOTE | 2019-10-01 17:00 | NUR ---
pt resting in his room
--- NOTE | 2019-10-01 18:00 | NUR ---
pt resting in his room
[2019-10-01] MEDS: QUEtiapine 25mg tablet PO PRN (22:17)
[2019-10-01] MEDS: risperiDONE 0.5mg tablet PO PRN (22:17)
[2019-10-01] MEDS: ibuprofen 200mg tablet PO SCH (22:17)
--- NOTE | 2019-10-02 00:22 | NUR ---
pt asleep on her right side . resp unlabored , in the line in the site of staff, will continue to monitor and reassess
--- NOTE | 2019-10-02 07:00 | NUR ---
pt resting no change
[2019-10-02] MEDS: lactose-reduced food (Ensure High Protein) 237ml bottle PO SCH ×3 (08:08→18:00)
[2019-10-02] MEDS: duloxetine 20mg capsule.DR PO SCH (08:14)
[2019-10-02] MEDS: sulfamethoxazole/trimethoprim DS (800/160mg) tablet PO SCH ×2 (08:14→20:53)
[2019-10-02] MEDS: nicotine 7mg patch - 24hr TD SCH (08:14)
[2019-10-02] MEDS: oxybutynin 5mg tablet PO SCH ×2 (08:14→20:53)
[2019-10-02] MEDS: levoTHYROXINE 75mcg tablet PO SCH (08:18)
--- NOTE | 2019-10-02 09:00 | NUR ---
pt ambulated to bathroom. pt ate breakfast
--- NOTE | 2019-10-02 10:00 | NUR ---
pt resting no change
--- NOTE | 2019-10-02 12:00 | NUR ---
pt resting no change
--- NOTE | 2019-10-02 14:00 | NUR ---
PT IS AMBULATING BACK AND FORTH IN THE UNIT USING HER WALKER
--- NOTE | 2019-10-02 16:00 | NUR ---
PT IS RESTING IN HER ROOM
--- NOTE | 2019-10-02 18:54 | NUR ---
Rosa Isela sun in ED - 10/02/19 at 2303 by AUSTIN ambulated to bathrrom asking to empty mathew bag / emptied mathew bag pt ambulated back to unit with steady gait . Pt now sitting in bed sobbing " stating that she wants to go home and take care of her son and have her medicine "
--- NOTE | 2019-10-02 18:56 | NUR ---
Note undone in EDM - 10/02/19 at 1901 by AUSTIN Pt sitting in bed shouting out statments about how she wants to leave an dthat it was not fair that staff told her she isnt taking care of her son . Verbalized to patient that we are here to help patient . Rn Pedro to talk to patient at bedside to reassure her that she is her safe and needs to take better care of herself . pt then up out of bed with walker colin gto leave . deburring technician to stop patient from leaving , discusing with patinet about her medication regimine and updating her plan of care.
--- NOTE | 2019-10-02 19:00 | NUR ---
ASSUMED CARE OF PT RESTING SUPINE IN BED . RESP UNLABORED IN THE LINE OF SITE OF STAFF WILL CONTINUE MONITOR AND TO REASSESS.
--- NOTE | 2019-10-02 20:00 | NUR ---
PT SLEEPING PEACUFULLY RESP UNLABORED WILL CONTINUE TO MONITOR AND REASSESS NEEDED
[2019-10-02] MEDS: ibuprofen 200mg tablet PO SCH (20:53)
--- NOTE | 2019-10-02 21:05 | NUR ---
PT AWAKE ASKING TO USE THE PHONE TO CALL HER DAUGHTER REMINDED PT THAT TOMARROW AM SHE WOULD BE ABLE TO USE THE PHONE
--- NOTE | 2019-10-02 22:15 | NUR ---
PT RESTING PEACFULLY RESP UNLABOERD WILL CONTINUE TO MONITOR AND REASSESS NEEDED
--- NOTE | 2019-10-02 23:00 | NUR ---
PT SLEEPING PEACFULL Y ON HER LEFT SIDE. RESP UNLABORED WILL CONTINUE TO MONITOR AND REASSESS
--- NOTE | 2019-10-03 | NUR ---
PT SLEEPING ON HER RIGHT SIDE AUROSABLE UPON ASSESSMENT . RESP UNLABORED WILL CONTINUE TO MONITOR AND REASSESS. PT OCCTIONALLY TALKING IN HER SLEEP
--- NOTE | 2019-10-03 01:00 | NUR ---
PT SLEEPING PEACEFULLY ON RIGHT SIDE, RESP UNLABORED , WILL CONTINUE TO MONITOR AND REASSESS .
--- NOTE | 2019-10-03 01:41 | NUR ---
PT AWAKE OUT OF BED TO NURSES STATION . USED WALKER TO ASSIT IN HER MABULATION , ASKING FOR GRAMCRACKERS . GAVE PATIENT SOME GRAMCRACKERSAS REQUESTED
--- NOTE | 2019-10-03 01:57 | NUR ---
PT AWAKE AMBULATED WITH WALKER TO BATHROOM TO VOID , ASKED TO HAVE A SNACK PT HAVING GRAMCRACKERS AT BEDSIDE
--- NOTE | 2019-10-03 02:30 | NUR ---
PT BACK TO BED ASLEEP ON RIGHT SIDE RESP UNLABORED WILL CONTINUE TO MONITOR AND REASSESS
--- NOTE | 2019-10-03 03:30 | NUR ---
PT SLEEPING PEACEFULLY ON HER RIGHT SIDE RESP UNLABORED WILL CONTINUE TO MONITOR
--- NOTE | 2019-10-03 04:30 | NUR ---
PT SLEEPING PEACEFULLY ON HER RIGHT SIDE RESP UNLABORED WILL CONTINUE TO MONITOR
--- NOTE | 2019-10-03 05:31 | NUR ---
PT UP OUT OF BED WALKING THE HALLWAY WITH HER WALKER, ASKING ABOUT HER CLOTHING . PT ASKED FOR SHIRT TO GIVE TO HER GRAND DAUGHTERS TURALEXIA .
--- NOTE | 2019-10-03 05:54 | NUR ---
PT SLEEPING RIGHT SIDE , RESP UNLABORED WILL CONTINUE MONITOR AND REASSESS
--- NOTE | 2019-10-03 07:01 | NUR ---
pt up and down from bed and bathroom walking steadily with walker. calm and cooperative.
[2019-10-03] MEDS: duloxetine 20mg capsule.DR PO SCH (08:18)
[2019-10-03] MEDS: levoTHYROXINE 75mcg tablet PO SCH (08:18)
[2019-10-03] MEDS: sulfamethoxazole/trimethoprim DS (800/160mg) tablet PO SCH ×2 (08:18→19:21)
[2019-10-03] MEDS: oxybutynin 5mg tablet PO SCH ×2 (08:18→19:21)
[2019-10-03] MEDS: nicotine 7mg patch - 24hr TD SCH (08:24)
--- NOTE | 2019-10-03 08:25 | NUR ---
sitting on edge of bed eating breakfast. A little crabby this morning but cooperative.
[2019-10-03] MEDS: lactose-reduced food (Ensure High Protein) 237ml bottle PO SCH ×3 (08:51→18:00)
--- NOTE | 2019-10-03 09:47 | NUR ---
sitting up in bed, calm and quiet.
--- NOTE | 2019-10-03 10:46 | NUR ---
resting quietly in bed
--- NOTE | 2019-10-03 11:45 | NUR ---
pt walked up to nursing station and asked when she was to be release. RN stated we were unsure at this time. pt slightly agitated then returned to bed.
--- NOTE | 2019-10-03 13:03 | NUR ---
sitting up on side of bed and quietly eating lunch.
--- NOTE | 2019-10-03 14:48 | NUR ---
resting quietly in bed.
--- NOTE | 2019-10-03 16:55 | NUR ---
sitting at side of bed talking on the phone. calm and cooperative.
[2019-10-03] MEDS: ibuprofen 200mg tablet PO SCH (19:21)
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
[2019-10-03] MEDS: lactobacillus rhamnosus 10,000 MMU CELLS/CAPSULE PO SCH (20:15)
--- NOTE | 2019-10-04 00:11 | NUR ---
The patient has been sleeping but got up briefly to get paper towels. She now appears to be back asleep
--- NOTE | 2019-10-04 01:35 | NUR ---
The patient was awake and confused and was looking for family. She appears to be asleep at this time.
--- NOTE | 2019-10-04 01:51 | NUR ---
patient offered PRN seroquel but declined at this time.
--- NOTE | 2019-10-04 02:41 | NUR ---
The patient is up and down during the night. She continues to decline po Seroquel.
--- NOTE | 2019-10-04 04:47 | NUR ---
The patient is taking short naps. When awake she is pleasantly confused.
--- NOTE | 2019-10-04 06:34 | NUR ---
resting quietly in bed. pt asking for coffee and toast, reassured her breakfast would be coming.
--- NOTE | 2019-10-04 07:46 | NUR ---
calm and quiet in bed.
[2019-10-04] MEDS: oxybutynin 5mg tablet PO SCH ×2 (08:15→20:00)
[2019-10-04] MEDS: duloxetine 20mg capsule.DR PO SCH (08:15)
[2019-10-04] MEDS: lactobacillus rhamnosus 10,000 MMU CELLS/CAPSULE PO SCH ×2 (08:15→20:00)
[2019-10-04] MEDS: levoTHYROXINE 75mcg tablet PO SCH (08:15)
[2019-10-04] MEDS: sulfamethoxazole/trimethoprim DS (800/160mg) tablet PO SCH ×2 (08:15→20:00)
[2019-10-04] MEDS: nicotine 7mg patch - 24hr TD SCH (08:19)
[2019-10-04] MEDS: lactose-reduced food (Ensure High Protein) 237ml bottle PO SCH ×3 (08:24→18:00)
--- NOTE | 2019-10-04 08:25 | NUR ---
Dr. Jacobsen at bedside. Pt has no needs at this time. Currenty resting quietly in bed. sitting at side of bed eating breakfast.
--- NOTE | 2019-10-04 09:30 | NUR ---
pt sitting up in bed talking to herself, not disruptive to any other patients. calm and cooperative.
--- NOTE | 2019-10-04 10:36 | NUR ---
DR GRADY INFORMED OF PT TALKING TO SELF AND DOES NOT APPEAR TO BEING WELL PREVIOUSLY, NEED SCHEDULED RISPERDAL, VERBAL ORDER RISPERDAL 1 MG PO BID. WILL GIVE PT A PRN RISPERDAL 1 MG NOW.
[2019-10-04] MEDS: risperiDONE 0.5mg tablet PO PRN (10:43)
--- NOTE | 2019-10-04 11:44 | NUR ---
put up and wandering around the unit, confused as to where she's at. Risperdol given earlier with minimal effect. Dr. Jacobsen aware and ordered to give Ativan 1mg PO.
[2019-10-04] MEDS: LORazepam 1 MG tablet PO PRN (11:50)
--- NOTE | 2019-10-04 12:24 | NUR ---
PO Jaymie given @ 1150, pt still saying random things. Saying she has a game to go to and then saying she has to go to the airport. Pt now sitting up on the side of the bed.
--- NOTE | 2019-10-04 13:13 | NUR ---
sitting on side of bed eating lunch. Addendum: 10/04/19 at 1314 by BARBARA talking to herself. Pt remains confused.
--- NOTE | 2019-10-04 13:32 | NUR ---
pt seems to be hallucinating and talking to someone who isn't there. pt's restless, getting up and walking around. 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 getting up without her walker and unsteady on her feet. Dr. Jacobsen aware of pts actions and pts received Risperdal @ 1043 and Ativan @ 8210. states to just watch her.
--- NOTE | 2019-10-04 14:15 | NUR ---
laying in bed, talking to people who are not there. staying in bed.
--- NOTE | 2019-10-04 14:50 | NUR ---
pt laying in bed and continues to talk to herself and to other people who are not there. Dr. Jacobsen aware and ordered for Seroquel 50mg once to be given. Will administer.
--- NOTE | 2019-10-04 15:35 | NUR ---
laying in bed, occasionally quitely talking to herself. Starting to calm down. Appears sleepy.
--- NOTE | 2019-10-04 16:30 | NUR ---
laying in bed, quietly talking to herself but looking sleepy.
--- NOTE | 2019-10-04 17:47 | NUR ---
resting quietly in bed.
--- NOTE | 2019-10-04 20:25 | NUR ---
Pt getting up out of bed and has unsteady gait. sba to use walker to get to the recliner chair. Pt is talking to someone named Melanie and intermittently mumbling about "going there in the morning". She is unable to keep her eyes open for very long or hold a conversation or to answer any of my questions appropriately. Attempted to give evening meds and Pt took "the small one", which was the prn hs seroquel, i was advised by the Day Shift RN that this med has worked well for her earlier today. Pt then assisted to her bed and her brief was soaked with urine. Skin intact to perineum, brief left off at this time and chucks placed under her. she ate no dinner and did not drink her shake.
[2019-10-04] MEDS: ibuprofen 200mg tablet PO SCH (22:59)
--- NOTE | 2019-10-05 00:26 | NUR ---
PT REMAINS ASLEEP, LYING ON HER RIGHT SIDE WITH BLANKETS COVERING TO HER SHOULDERS. PTS CHUCKS PAD IS DRY. PTS BELLY NOTED TO BE FIRM, BUT NOT PAINFUL WITH ANY PALPATION , ACTIVE BT, LAST NOTED TO HAVE BM ON . ADTL WARM BLANKETS PLACED ON HER.
--- NOTE | 2019-10-05 02:10 | NUR ---
Pt asleep. Shifting onto her back. Blankets adjusted. Chucks pad remains dry. Sitter within view of Pt aat.
--- NOTE | 2019-10-05 04:42 | NUR ---
Pt sleeping, lying on her right side with blankets covering to her shoulders. RR 14 and unlabored. Sitter and RN within view of Pt aat.
--- NOTE | 2019-10-05 06:54 | NUR ---
PT IS SLEEPING ON RIGHT SIDE, RESPRIATIONS SPONTANEOUS, EVEN AND UNLABORED, NO S/S OF DISTRESS, DISCOMFORT, OR AGITATION. PT IN LINE OF SITE OF NURSES STATION AND ED SITTER [facility]UY[facility].
--- NOTE | 2019-10-05 08:20 | NUR ---
PT SLEEPING ON RIGHT SIDE, RESPIRATIONS SPONTANEOUS, EVEN AND UNLABORED, NO S/S OF DISTRESS, DISCOMFORT, OR AGITATION. PT IN LINE OF SITE OF NURSES STATION AND SITTER TUYET.
[2019-10-05] MEDS: levoTHYROXINE 75mcg tablet PO SCH (08:39)
[2019-10-05] MEDS: acetaminophen 325mg tablet PO PRN (08:39)
[2019-10-05] MEDS: sulfamethoxazole/trimethoprim DS (800/160mg) tablet PO SCH ×2 (08:39→21:07)
[2019-10-05] MEDS: duloxetine 20mg capsule.DR PO SCH (08:39)
[2019-10-05] MEDS: lactobacillus rhamnosus 10,000 MMU CELLS/CAPSULE PO SCH ×2 (08:39→21:07)
[2019-10-05] MEDS: nicotine 7mg patch - 24hr TD SCH (08:40)
[2019-10-05] MEDS: oxybutynin 5mg tablet PO SCH ×2 (08:40→21:07)
[2019-10-05] MEDS: lactose-reduced food (Ensure High Protein) 237ml bottle PO SCH ×3 (08:40→18:00)
[2019-10-05] MEDS: risperiDONE 0.5mg tablet PO SCH ×2 (08:40→21:07)
--- NOTE | 2019-10-05 11:10 | NUR ---
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
--- NOTE | 2019-10-05 11:57 | NUR ---
PT AMBULATORY TO BATHROOM WITH WALKER, INDEPENDENTLY STANDS AND WALKS WITH AID OF WALKER, PT GIVEN SUPPLIES TO CLEAN UP IN BATHROOM AND ASSISTANCE PROVIDED BY [facility] BENDER, PT ALSO GIVEN NEW SCRUB PANTS AND TOP.
--- NOTE | 2019-10-05 13:15 | NUR ---
PT SITTING UP AT BEDSIDE EATING FROM LUNCH TRAY
--- NOTE | 2019-10-05 19:00 | NUR ---
PT IS RESTING IN BED AFTER EATING DINNER. PT IS COOPERATIVE WITH 1:1 ASSESSMENT.
[2019-10-05] MEDS: ibuprofen 200mg tablet PO SCH (20:00)
[2019-10-05] MEDS: QUEtiapine 25mg tablet PO PRN (21:07)
--- NOTE | 2019-10-05 22:18 | NUR ---
PT WAS MEDICATION COMPLIANT AND COOPERATIVE WITH 1:1 ASSESSMENT. PT RESTING ON BACK CURRENTLY. RR WNL
--- NOTE | 2019-10-06 00:48 | NUR ---
PT UP TO USE THE RESTROOM, STATED SHE FELT UNSTABLE, STAFF ASSISTED HER TO RESTROOM AND BACK WITH NO ISSUES.
--- NOTE | 2019-10-06 02:54 | NUR ---
PT ASLEEP ON R SIDE, RR 12, EVEN AND UNLABORED
[2019-10-06] MEDS: levoTHYROXINE 75mcg tablet PO SCH (07:31)
[2019-10-06] MEDS: lactose-reduced food (Ensure High Protein) 237ml bottle PO SCH ×3 (08:26→18:00)
[2019-10-06] MEDS: risperiDONE 0.5mg tablet PO SCH ×2 (08:27→20:42)
[2019-10-06] MEDS: oxybutynin 5mg tablet PO SCH ×2 (08:27→20:42)
[2019-10-06] MEDS: lactobacillus rhamnosus 10,000 MMU CELLS/CAPSULE PO SCH ×2 (08:27→20:42)
[2019-10-06] MEDS: nicotine 7mg patch - 24hr TD SCH (08:27)
[2019-10-06] MEDS: duloxetine 20mg capsule.DR PO SCH (08:27)
[2019-10-06] MEDS: sulfamethoxazole/trimethoprim DS (800/160mg) tablet PO SCH ×2 (08:28→20:42)
--- NOTE | 2019-10-06 09:20 | NUR ---
Breaking primary RN, pt is laying on her right side, eyes closed, appears to be asleep,regular breathing present, no s/s of agitation
--- NOTE | 2019-10-06 11:44 | NUR ---
Bandage changed on toes
--- NOTE | 2019-10-06 12:35 | NUR ---
Breaking Primary RN, ptis sitting at bedside, EVS is mopping her floor, she appears calm, no distress observed, tech answering her questions re: lunch, tissues etc
[2019-10-06] MEDS: polyethylene glycol 3350 17gm powd pack PO PRN (14:44)
--- NOTE | 2019-10-06 18:34 | NUR ---
Assumed care from day RN Nilson. Pt is currently awake and alert, sitting on the side of her bed consuming her dinner. She denies pain or discomfort. Pt is in direct line of sight of the nursing station.
--- NOTE | 2019-10-06 20:29 | NUR ---
Pt is resting in bed at this time, awake. She is alert, pleasent, and cooperative in care as she just received all her HS medications. She denies pain or distress and is in direct line of sight of the nursing station.
[2019-10-06] MEDS: ibuprofen 200mg tablet PO SCH (20:42)
--- NOTE | 2019-10-06 22:28 | NUR ---
Pt had been resting on her right side in bed, however she is up and to the bathroom ambulating with her walker. She is alert, denies pain or discomfort.
--- NOTE | 2019-10-07 00:23 | NUR ---
The patient is in bed, sleeping at this time on her right side. Respirations are visible. She does not show signs of pain or discomfort. Pt is in direct line of sight of the nursing station.
--- NOTE | 2019-10-07 02:20 | NUR ---
Pt is currently sleeping at this time, lying on her back with visible respirations. She does not show signs of pain or distress. Pt is in direct line of sight of the nursing station.
--- NOTE | 2019-10-07 03:41 | NUR ---
The patient is currently sleeping on her right side with visible respirations. She does not show sign of pain or distress. She is in direct line of sight of the nursing station.
--- NOTE | 2019-10-07 05:09 | NUR ---
The patient is awake and alert, sitting in the recliner next to her bed. She utilized the restroom at 0430. She denies pain or discomfort, is currently visible from the nursing station and sorting through her bedside belongings.
[2019-10-07] MEDS: levoTHYROXINE 75mcg tablet PO SCH (07:41)
[2019-10-07] MEDS: sulfamethoxazole/trimethoprim DS (800/160mg) tablet PO SCH ×2 (07:41→20:20)
[2019-10-07] MEDS: duloxetine 20mg capsule.DR PO SCH (07:41)
[2019-10-07] MEDS: risperiDONE 0.5mg tablet PO SCH ×2 (07:41→20:19)
[2019-10-07] MEDS: oxybutynin 5mg tablet PO SCH ×2 (07:41→20:00)
[2019-10-07] MEDS: nicotine 7mg patch - 24hr TD SCH (07:42)
[2019-10-07] MEDS: lactobacillus rhamnosus 10,000 MMU CELLS/CAPSULE PO SCH ×2 (07:42→20:20)
[2019-10-07] MEDS: lactose-reduced food (Ensure High Protein) 237ml bottle PO SCH ×3 (08:22→18:25)
--- NOTE | 2019-10-07 13:09 | NUR ---
Pt is sitting up eating lunch.
--- NOTE | 2019-10-07 14:29 | NUR ---
pt is resting in bed with her eyes closed.
--- NOTE | 2019-10-07 16:29 | NUR ---
pt ambulated to restroom with aide of her walker and staff. pt sitting on side of bed
[2019-10-07] MEDS: QUEtiapine 25mg tablet PO PRN (20:19)
[2019-10-07] MEDS: ibuprofen 200mg tablet PO SCH (20:20)
--- NOTE | 2019-10-07 20:56 | NUR ---
pt is sleeping, no s/s of distress noted. rr unlabored.
--- NOTE | 2019-10-07 22:43 | NUR ---
pt is sleeping, no s/s of distress noted. rr unlabored.
--- NOTE | 2019-10-08 00:21 | NUR ---
pt continues to sleep, rr even and unlabored.
--- NOTE | 2019-10-08 03:01 | NUR ---
pt appears to be asleep, no s/s of distress noted.
--- NOTE | 2019-10-08 05:58 | NUR ---
pt appears to be asleep, no s/s of distress noted.
--- NOTE | 2019-10-08 07:00 | NUR ---
pt is sleeping no concerns at this time
[2019-10-08] MEDS: risperiDONE 0.5mg tablet PO SCH ×2 (08:16→20:29)
[2019-10-08] MEDS: oxybutynin 5mg tablet PO SCH ×2 (08:16→20:29)
[2019-10-08] MEDS: sulfamethoxazole/trimethoprim DS (800/160mg) tablet PO SCH ×2 (08:16→20:29)
[2019-10-08] MEDS: lactobacillus rhamnosus 10,000 MMU CELLS/CAPSULE PO SCH ×2 (08:16→20:29)
[2019-10-08] MEDS: levoTHYROXINE 75mcg tablet PO SCH (08:16)
[2019-10-08] MEDS: nicotine 7mg patch - 24hr TD SCH (08:16)
[2019-10-08] MEDS: duloxetine 20mg capsule.DR PO SCH (08:16)
[2019-10-08] MEDS: lactose-reduced food (Ensure High Protein) 237ml bottle PO SCH ×3 (08:17→18:00)
--- NOTE | 2019-10-08 09:00 | NUR ---
pt woke up and ate breakfast sitting up. pt is alert and orientated to self only.
--- NOTE | 2019-10-08 11:00 | NUR ---
pt talking to her daughter on the phone. michael states that the medi-tejinder forms have been filled out and sent in
--- NOTE | 2019-10-08 13:00 | NUR ---
pt eating lunch
--- NOTE | 2019-10-08 15:00 | NUR ---
pt is resting in bed
--- NOTE | 2019-10-08 17:00 | NUR ---
pt is resting in bed. no concerns at this time
--- NOTE | 2019-10-08 18:03 | NUR ---
pt is resting in her bed
[2019-10-08] MEDS: ibuprofen 200mg tablet PO SCH (20:29)
--- NOTE | 2019-10-09 06:27 | NUR ---
RECEIVED REPORT FROM BRY BENITEZ, PT IS LYING ON LEFT SIDE SLEEPING, NO S/S OF DISTRESS, DISCOMFORT OR AGITATION, PT IN LINE OF SITE OF NURSES STATION, EMMANUEL CUELLAR AND VANDANA SCHAFER. NO NEEDS AT THIS TIME.
--- NOTE | 2019-10-09 06:30 | NUR ---
PT AMBULATORY TO NURSES STATION WITH WALKER ASKING FOR SOME COFFEE, COFFEE GIVEN TO PT BY MARLA BENDER.
[2019-10-09] MEDS: levoTHYROXINE 75mcg tablet PO SCH (07:14)
[2019-10-09] MEDS: sulfamethoxazole/trimethoprim DS (800/160mg) tablet PO SCH ×2 (07:59→20:21)
[2019-10-09] MEDS: oxybutynin 5mg tablet PO SCH ×2 (07:59→20:21)
[2019-10-09] MEDS: duloxetine 20mg capsule.DR PO SCH (07:59)
[2019-10-09] MEDS: acetaminophen 325mg tablet PO PRN ×2 (08:00→16:24)
[2019-10-09] MEDS: lactobacillus rhamnosus 10,000 MMU CELLS/CAPSULE PO SCH ×2 (08:00→20:22)
[2019-10-09] MEDS: risperiDONE 0.5mg tablet PO SCH ×2 (08:00→20:22)
[2019-10-09] MEDS: lactose-reduced food (Ensure High Protein) 237ml bottle PO SCH ×4 (08:01→19:43)
[2019-10-09] MEDS: nicotine 7mg patch - 24hr TD SCH (08:02)
--- NOTE | 2019-10-09 08:26 | NUR ---
PAGED LEANDRO [employer] FOR UPDATE OF MEDI-ZOILA APPLICATION.
--- NOTE | 2019-10-09 08:31 | NUR ---
LEANDRO CALLED BACK STATES WILL CHECK ON MEDI-ZOILA APPLICATION STATUS AND THEN LOOK FOR PERMANENT PLACEMENT ONCE MEDI-ZOILA HAS BEEN APPROVED.
--- NOTE | 2019-10-09 08:49 | NUR ---
GAVE UPDATE TO MINDA ED DIRECTOR AND SHE WILL FOLLOW UP WITH ADMIN AT 1400 MEETING.
--- NOTE | 2019-10-09 09:21 | NUR ---
DR CHRIS GIVE BRIEF UPDATE/REPORT ON PT STATUS, DR CHRIS TO EVALUATE PT.
--- NOTE | 2019-10-09 10:53 | NUR ---
PT IS SLEEPING, RESPIRATIONS SPONTANEOUS, EVEN AND UNLABORED, NO S/S OF DISTRESS, DISCOMFORT OR AGITATION AT THIS TIME, PT IN LINE OF SITE OF NURSES STATION VISIBLE TO EMMANUEL CUELLAR AND VANDANA SCHAFER.
--- NOTE | 2019-10-09 12:32 | NUR ---
PT MOVED FROM BED 26 TO BED 22 DUE TO BEING A RESIDENTIAL PT.
--- NOTE | 2019-10-09 12:50 | NUR ---
PT MOVED FROM OF26 TO OF22
--- NOTE | 2019-10-09 13:33 | NUR ---
LUNCH TRAY PLACED AT BEDSIDE, PT SITTING UP EATING NOW.
--- NOTE | 2019-10-09 13:55 | NUR ---
PLACED A MENG SWEATSHIRT ON PT PER MINDA DIRECTOR APPROVAL
--- NOTE | 2019-10-09 17:37 | NUR ---
SPOKE WITH PAUL CHARGE NURSE TO SPEAK WITH A PROVIDER TO HAVE PT BLOOD PRESSURE EVALAUTED AND TREATED IF NECESSARY
--- NOTE | 2019-10-09 17:45 | NUR ---
ISAAC MIGUEL TO OF AT NURSES STATION, REVIEWED PT BLOOD PRESSURE TRENDS SINCE ARRIVING TO ED, RECEIVED VERBAL ORDER FOR CLONIDINE 0.1 MG PRN SBP GREATER THAN 160.
--- NOTE | 2019-10-09 18:45 | NUR ---
Patient is laying mid fowlers in bed. She ambulates to nursing station without problem with use of walker. Patient is without complaint.
--- NOTE | 2019-10-09 19:50 | NUR ---
Patient requested and was given a warm blanket.
[2019-10-09] MEDS: ibuprofen 200mg tablet PO SCH (20:22)
--- NOTE | 2019-10-09 21:02 | NUR ---
Patient is sleeping quietly on her left side.
--- NOTE | 2019-10-09 22:41 | NUR ---
Patient is sleeping on her left side in a low fowlers position.
--- NOTE | 2019-10-09 23:34 | NUR ---
Patient is sleeping on her left side in bed.
--- NOTE | 2019-10-10 01:46 | NUR ---
Patient is sleeping on her right side in bed. In view from nursing station.
--- NOTE | 2019-10-10 02:31 | NUR ---
Patient in view from nursing station. Sleeping quietly on her left side.
--- NOTE | 2019-10-10 03:35 | NUR ---
Patilent sleeping on her left side.
--- NOTE | 2019-10-10 04:43 | NUR ---
Patient is ambulatory with walker to bathroom and back to bed. This designer/writer noted a wet spot on the bed where patient had voided. Patient was cleaned and changed into new scrub bottoms. New linen was placed on patient bed. Patient returning to sleep.
[2019-10-10] MEDS: acetaminophen 325mg tablet PO PRN ×3 (04:50→23:09)
--- NOTE | 2019-10-10 05:20 | NUR ---
Patient sleeping quietly on her left side.
--- NOTE | 2019-10-10 07:00 | NUR ---
pt is sleeping
[2019-10-10] MEDS: duloxetine 20mg capsule.DR PO SCH (08:28)
[2019-10-10] MEDS: levoTHYROXINE 75mcg tablet PO SCH (08:28)
[2019-10-10] MEDS: lactobacillus rhamnosus 10,000 MMU CELLS/CAPSULE PO SCH ×2 (08:28→19:59)
[2019-10-10] MEDS: sulfamethoxazole/trimethoprim DS (800/160mg) tablet PO SCH ×2 (08:28→19:58)
[2019-10-10] MEDS: risperiDONE 0.5mg tablet PO SCH ×2 (08:28→19:59)
[2019-10-10] MEDS: nicotine 7mg patch - 24hr TD SCH (08:28)
[2019-10-10] MEDS: oxybutynin 5mg tablet PO SCH ×2 (08:28→19:59)
--- NOTE | 2019-10-10 09:00 | NUR ---
pt is awake. pt is ambulating around with her walker
--- NOTE | 2019-10-10 11:00 | NUR ---
pt is sitting up on the edge of the bed. pt called her daughter
[2019-10-10] MEDS: lactose-reduced food (Ensure High Protein) 237ml bottle PO SCH ×2 (13:00→18:00)
--- NOTE | 2019-10-10 13:00 | NUR ---
pt is sitting in her chair eating lunch
--- NOTE | 2019-10-10 15:00 | NUR ---
pt is walking around with her walker
--- NOTE | 2019-10-10 17:00 | NUR ---
pt is laying in her bed.
--- NOTE | 2019-10-10 17:42 | NUR ---
applications filled out for poss housing placements
[2019-10-10] MEDS: ibuprofen 200mg tablet PO SCH (20:00)
--- NOTE | 2019-10-10 20:28 | NUR ---
Patient was compliant with evening medications. She is now mid fowlers position in bed and sleeping.
--- NOTE | 2019-10-10 23:07 | NUR ---
Patient is sleeping partially on her left side in bed.
--- NOTE | 2019-10-11 01:16 | NUR ---
Pt resting comfortably, respirations normal, no s/s of distress.
--- NOTE | 2019-10-11 02:30 | NUR ---
Patient awoke asking about breakfast. The patient was reoriented to the time and she agreed to return to sleep. Patient has tenderness to her right humerus and forarm too. She has been sleeping on her right side primarily. This conventional mortgage underwriter put a pillow beneath her right arm for comfort and better positioning. Warm blankets given.
--- NOTE | 2019-10-11 03:04 | NUR ---
Patient is awake and ambulating to the bathroom with walker. A small skin tear is noted to the right elbow. A dressing will be applied and MD will be notified in morning rounds.
--- NOTE | 2019-10-11 03:15 | NUR ---
Patient returned from bathroom, advised this typewriter assembly and parts inspector that she had voided in bed. The patient was cleaned, placed into new scrubs. Bed cleaned and linens changed. A small skin tear is noted just superior to the right elbow. The tear is gently cleaned. Neosporin is applied. A bandage is placed. Patient given warm blankets. She retired to sleep.
--- NOTE | 2019-10-11 04:06 | NUR ---
Patient is sleeping quietly on her left side.
--- NOTE | 2019-10-11 06:01 | NUR ---
Patient is sleeping on her left side in low position.
--- NOTE | 2019-10-11 07:35 | NUR ---
Pt is awake and up. Pt has ambulated to bathroom and is tidying up surroundings. Pt inquiring when breakfast trays will be arriving.
[2019-10-11] MEDS: lactobacillus rhamnosus 10,000 MMU CELLS/CAPSULE PO SCH ×2 (08:02→20:16)
[2019-10-11] MEDS: duloxetine 20mg capsule.DR PO SCH (08:02)
[2019-10-11] MEDS: oxybutynin 5mg tablet PO SCH ×2 (08:02→20:16)
[2019-10-11] MEDS: levoTHYROXINE 75mcg tablet PO SCH (08:02)
[2019-10-11] MEDS: nicotine 7mg patch - 24hr TD SCH (08:03)
[2019-10-11] MEDS: risperiDONE 0.5mg tablet PO SCH ×2 (08:03→20:16)
[2019-10-11] MEDS: lactose-reduced food (Ensure High Protein) 237ml bottle PO SCH ×3 (08:08→18:00)
--- NOTE | 2019-10-11 09:15 | NUR ---
Pt ate breakfast tray and is now laying in bed resting.
--- NOTE | 2019-10-11 16:20 | NUR ---
I WENT TO PATIENT BEDSIDE FOR FACE TO FACE. PATIENT STATES THAT SHE LIVES ALONE IN A HOUSE, AND IS INDEPENDENT WITH ADLS. SHE DRIVES. NO DME. HER PCP IS REVA AKINS N.P.. HER NEIGHBORS SOMETIMES GIVE HER ASSISTANCE WHEN NEEDED. NURSING STAFF NOTIFIED ME THAT PATIENT'S PGE BILL HAS BEEN PAID, SO SHE HAS GAS TO HER HOME. 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 HER POWER IS CURRENTLY OFF AT HER HOME. NURSING HAS REQUESTED MANAGEMENT TO PAY THE DELINQUENT BILL, SO THAT POWER MAY BE TURNED BACK ON. PATIENT IS ALSO DELINQUENT BY ONE MONTH FOR HER MORTGAGE. STAFF NOTIFIED ME THAT PATIENT HAS ENOUGH TO PAY MORTGAGE PAYMENT FOR THIS MONTH AND LAST MONTH, BRINGING HER CURRENT. SHE DOES NOT HAVE ENOUGH TO PAY FOR ELECTRIC BILL. I SENT ORDER TO [facility] TO OBTAIN HOME NURSING, HOME P.T., AND HAND BULLDOZER TO EVALUATE FOR COMMUNITY RESOURCES. PATIENT ALSO HAS AN APPLICATION IN PROCESS FOR MEDI-ZOILA, IN ORDER TO POSSIBLY QUALIFY FOR IHSS HELP. I SPOKE WITH NESTOR, AT [facility] . SHE HAS RECEIVED MY ATTESTATION. DISCUSSE WITH DIRECTOR, IDALMIS, AND Stephania REEVES.
[2019-10-11] MEDS: ibuprofen 200mg tablet PO SCH (20:16)
--- NOTE | 2019-10-12 07:31 | NUR ---
PT UP TO NURSES STATION ASKING ABOUT GOING HOME TODAY, PT GIVEN CUP OF COFFE PER REQUEST, PT IS NOW RESTING ON LEFT SIDE, MOVES IN BED AND AROUND ADLIB, NO S/S OF DISTRESS DISCOMFORT OR AGITATION AT THIS TIME, PT IN LINE OF SITE OF NURSES STATION, WILL CONTINUE TO MONITOR PT, NO NEEDS AT THIS TIME
[2019-10-12] MEDS: levoTHYROXINE 75mcg tablet PO SCH (07:51)
[2019-10-12] MEDS: lactose-reduced food (Ensure High Protein) 237ml bottle PO SCH ×3 (08:22→18:00)
--- NOTE | 2019-10-12 08:22 | NUR ---
BREAKFAST TRAY PLACED AT BEDSIDE, OPENED PT CHOCOLATE GLUCERNA DRINK, PT SITTING UP AT BEDSIDE EATING NOW. WILL MEDICATE PT AFTER SHE IS DONE EATING.
[2019-10-12] MEDS: oxybutynin 5mg tablet PO SCH ×2 (08:37→20:19)
[2019-10-12] MEDS: duloxetine 20mg capsule.DR PO SCH (08:37)
[2019-10-12] MEDS: risperiDONE 0.5mg tablet PO SCH ×2 (08:37→20:20)
[2019-10-12] MEDS: nicotine 7mg patch - 24hr TD SCH (08:38)
[2019-10-12] MEDS: lactobacillus rhamnosus 10,000 MMU CELLS/CAPSULE PO SCH ×2 (08:41→20:20)
--- NOTE | 2019-10-12 09:33 | NUR ---
PT FINISHED BREAKFAST TRAY, PT SLEEPING, RESPIRATION SPONTANEOUS, EVEN AND UNLABORED, NO S/S OF DISTRESS DISCOMFORT OR AGITATION AT THIS TIME, PT IN LINE OF SITE OF NURSES STATION, WILL CONTINUE TO MONITOR PT, NO NEEDS AT THIS TIME.
--- NOTE | 2019-10-12 10:03 | NUR ---
CALLED STEPHANIE WITH [employer] SHE WILL BE IN TO [facility] TO SEE PT SOMETIME ON WEDNESDAY WHEN VINAY IS HERE TO EVALUATE PT FOR PLACEMENT.
--- NOTE | 2019-10-12 10:40 | NUR ---
CALLED [facility] ON [address] [phone] CALLED IN PRESCRIPTIONS FOR MIRALAX, DITROPAN 5 MG DAILY, RISPERDAL 2 MG BID, SYNTHROID 75 MCG DAILY, CYMBALTA 20 MG DAILY, SEROQUEL 25MG HS, ONLY PRESCRIPTION NOT CALLED IN WAS FOR ATIVAN THAT WILL BE HANDLED BY MINDA ED DIRECTOR WHEN PT GOES HOME, ALL PRESCRIPTIONS IN ENVELOPE IN CHART BINDER.
--- NOTE | 2019-10-12 13:31 | NUR ---
PT IS SITTING UP EAT LUNCH TRAY NOW
--- NOTE | 2019-10-12 19:15 | NUR ---
Patient ate a full dinner, only partial bottle of Ensure. Patient is cooperative, some minor confussion. She does know this writers name.
[2019-10-12] MEDS: ibuprofen 200mg tablet PO SCH (20:19)
--- NOTE | 2019-10-12 21:30 | NUR ---
Patient complies with nightime medications. She was given warm blankets.
--- NOTE | 2019-10-12 22:19 | NUR ---
Patient awakens and walks to nursing station. Patient knows this writers name, she is disoriented to time and situation. Patient asks this service writer advisor if we are going to dinner at [facility]? The patient is redirected back to bed. Patient is also reoriented to place, time, and situation.
--- NOTE | 2019-10-12 23:45 | NUR ---
Patient is sleeping on her left side.
--- NOTE | 2019-10-13 00:31 | NUR ---
Patient is laying in bed, talking in her sleep.
[2019-10-13] MEDS: QUEtiapine 25mg tablet PO PRN (00:58)
--- NOTE | 2019-10-13 01:01 | NUR ---
Patient given Seropuel for sleep.
--- NOTE | 2019-10-13 01:23 | NUR ---
Patient is sleeping on her left side.
--- NOTE | 2019-10-13 02:32 | NUR ---
Patient is speaking loudly in her sleep. She is on her left side, in view from the nursing station.
--- NOTE | 2019-10-13 04:19 | NUR ---
Patient has been out of bed multiple times. Patient has been redirected back to bed mutiple times. Patient is agitated, wants to call [employer], go to [employer] to eat, drive her car, etc. The patient thought process is not linear at this time. Patient is resistant to medications... Staff is closely monitoring this patient for her safety.
--- NOTE | 2019-10-13 05:02 | NUR ---
Kelsey is out of bed again. She remains agitated. Patient deman to know when this nurse is taking her to dinner or to home. It was explained to this patient once again that she needs to sleep, that this nurse is not taking her to breakfast, and that breakfast will be served to her at 0800 hrs. The patient expresses her displeasure with the facts. The patient is advised that she is in a safe place. The patient remains frustrated and labile. Her thought process has not been linear at all last evening.
--- NOTE | 2019-10-13 05:26 | NUR ---
Patient is out of bed again. She is redirected back to bed. She accepts a fruit bowl and some applesauce. She is eating quietly.
--- NOTE | 2019-10-13 06:40 | NUR ---
Patient up and screaming at night shift manager RN to order pizza and take her home. Patient did not sleep all night. Patient escorted back to her bed. Continue to monitor.
--- NOTE | 2019-10-13 07:05 | NUR ---
Patient sleeping supine. No distress observed. Continue to monitor.
[2019-10-13] MEDS: nicotine 7mg patch - 24hr TD SCH (08:07)
[2019-10-13] MEDS: lactobacillus rhamnosus 10,000 MMU CELLS/CAPSULE PO SCH ×2 (08:07→22:45)
[2019-10-13] MEDS: duloxetine 20mg capsule.DR PO SCH (08:08)
[2019-10-13] MEDS: levoTHYROXINE 75mcg tablet PO SCH (08:08)
[2019-10-13] MEDS: oxybutynin 5mg tablet PO SCH ×2 (08:08→22:45)
[2019-10-13] MEDS: risperiDONE 0.5mg tablet PO SCH ×2 (08:09→22:45)
[2019-10-13] MEDS: lactose-reduced food (Ensure High Protein) 237ml bottle PO SCH ×3 (08:10→18:00)
--- NOTE | 2019-10-13 08:35 | NUR ---
Patient is up and eating breakfast. No distress observed. Continue to monitor.
--- NOTE | 2019-10-13 10:35 | NUR ---
Patient c/o bodyaches. RN to give patient Tylenol. No distress observed. Continue to monitor.
[2019-10-13] MEDS: LORazepam 1 MG tablet PO PRN (10:52)
[2019-10-13] MEDS: acetaminophen 325mg tablet PO PRN (10:52)
--- NOTE | 2019-10-13 11:50 | NUR ---
Patient sleeping. No distress observed. Continue to monitor.
--- NOTE | 2019-10-13 15:20 | NUR ---
Patient sleeping in recliner. No distress observed. Continue to monitor.
--- NOTE | 2019-10-13 16:35 | NUR ---
Patient sleeping in recliner. RN moving patient to Bed. Patient was incontinent of urine. RN and Boogie Buck cleaned and changed patient. Patient given a warm blanket. Continue to monitor.
--- NOTE | 2019-10-13 18:34 | NUR ---
Assumed care of patient, pt. continues to sleep at this time. RR are even and unlabored, will continue to monitor.
--- NOTE | 2019-10-13 20:30 | NUR ---
Unable to complete 1:1 with pt. or [place] Suicide Risk Assessment r/t pt. fatigue. Will endorse to AM shift and continue to monitor.
--- NOTE | 2019-10-13 22:40 | NUR ---
Awoke pt. r/t incontinence, she was able to ambulate to the BR with the assistance of staff. Pt. presents as very groggy and confused. Clothing changed with full staff assist, pt. unable to urinate at this time. Pt. reported feeling hungry, however was only able to eat a few bites of her dinner with help from staff. She was compliant with all medications and then returned back to bed. MD notified of patients change in status, CBC, CMP, and urinalysis ordered. Addendum: 10/13/19 at 2352 by PARISA Pt. did receive a PRN dose of Ativan today at approximately 1100, and has been groggy since then. Will continue to monitor.
[2019-10-13] MEDS: ibuprofen 200mg tablet PO SCH (22:45)
--- NOTE | 2019-10-13 23:10 | NUR ---
Ordered labs completed and straight cath completed, results are pending at this time. Pt. was able to eat 25% of HS snack and 25% of protein shake.
[2019-10-13 23:30] LABS: CLARITY,URINE SLIGHTLY CLOUDY (Clear); COLOR,URINE YELLOW (Yellow); GLUCOSE, URINE NEGATIVE (Neg); KETONES,URINE NEGATIVE (Neg); LEUKOCYTE ESTERASE ,URINE NEGATIVE (Neg); NITRITES, URINE NEGATIVE (Neg); OCCULT BLOOD,URINE NEGATIVE (Neg); PROTEIN,URINE NEGATIVE (Neg); UROBILINOGEN,URINE 0.2 E.U/dL (0.2-1.0)
[2019-10-13 23:38] LABS: BASOPHILS # (AUTO) 0.1 X10'3 (0-0.2); BASOPHILS % (AUTO) 1.1 % (0-1); EOSINOPHILS # (AUTO) 0.1 X10'3 (0-0.9); EOSINOPHILS % (AUTO) 2.4 % (0-6); HEMATOCRIT 31.3 % (35.0-45.0); HEMOGLOBIN 10.7 g/dl (12.0-16.0); LYMPHOCYTES # (AUTO) 1.3 X10'3 (1.1-4.8); LYMPHOCYTES % (AUTO) 25.8 % (21-51); MEAN CORPUSCULAR HEMOGLOBIN 29.5 PG (27.0-31.0); MEAN CORPUSCULAR HGB CONC 34.3 g/dL (33.0-36.5); MEAN CORPUSCULAR VOLUME 86.1 FL (78-98); MEAN PLATELET VOLUME 7.6 FL (7.4-10.4); MONOCYTES # (AUTO) 0.4 X10'3 (0-0.9); MONOCYTES % (AUTO) 7.6 % (2-12); NEUTROPHILS # (AUTO) 3.2 X10'3 (1.8-7.7); NEUTROPHILS % (AUTO) 63.1 % (42-75); PLATELET COUNT 341 X10'3 (140-440); RED BLOOD COUNT 3.63 X10'6 (4.20-5.60); RED CELL DISTRIBUTION WIDTH 15.7 % (11.5-14.5)
[2019-10-13 23:47] LABS: UA COLLECTION TYPE STRAIGHT CATH
[2019-10-13 23:48] LABS: ALANINE AMINOTRANSFERASE 17 U/L (12-78); ALBUMIN 2.8 G/DL (3.4-5.0); ALBUMIN/GLOBULIN RATIO 0.7 (1.1-1.5); ALKALINE PHOSPHATASE 64 IU/L (46-116); ANION GAP 8 (8-16); ASPARTATE AMINO TRANSFERASE 22 U/L (10-37); BILIRUBIN,TOTAL 0.4 MG/DL (0.1-1.0); BLOOD UREA NITROGEN 30 MG/DL (7-18); BUN/CREATININE RATIO 15.8 (6.6-38.0); CALCIUM 9.3 MG/DL (8.5-10.1); CHLORIDE 105 MMOL/L (99-107); GLUCOSE 112 MG/DL (70-104); POTASSIUM 4.6 MMOL/L (3.5-5.1); SODIUM 135 MMOL/L (135-145); TOTAL CARBON DIOXIDE 22.1 MMOL/L (24-32); TOTAL PROTEIN 6.8 G/DL (6.4-8.2); eGFR 25 ML/MIN
[2019-10-13 23:48] LABS: BACTERIA,URINE 4+ /HPF (Neg); RBC,URINE NONE SEEN /HPF (0-2); SQUAMOUS EPITHELIAL CELL,UR NONE SEEN /LPF (FEW); WBC,URINE NONE SEEN /HPF (0-4)
--- NOTE | 2019-10-14 00:30 | NUR ---
Laboratory results WNL. Pt. continues to sleep at this time, makes occassional body adjustments. Will continue to monitor.
--- NOTE | 2019-10-14 02:58 | NUR ---
Pt. continues to sleep, laying on her rt. side, rr even and unlabored.
--- NOTE | 2019-10-14 04:32 | NUR ---
Pt. sleeping, laying on her left side, rr even and unlabored.
--- NOTE | 2019-10-14 05:54 | NUR ---
Pt. continues to sleep, no s/s of distress or further episodes of incontinence at this time. Will continue to monitor.
[2019-10-14] MEDS: nicotine 7mg patch - 24hr TD SCH (08:06)
[2019-10-14] MEDS: oxybutynin 5mg tablet PO SCH ×2 (08:07→20:00)
[2019-10-14] MEDS: lactobacillus rhamnosus 10,000 MMU CELLS/CAPSULE PO SCH ×2 (08:07→20:00)
[2019-10-14] MEDS: risperiDONE 0.5mg tablet PO SCH ×2 (08:07→20:15)
[2019-10-14] MEDS: levoTHYROXINE 75mcg tablet PO SCH (08:07)
[2019-10-14] MEDS: duloxetine 20mg capsule.DR PO SCH (08:07)
[2019-10-14] MEDS: lactose-reduced food (Ensure High Protein) 237ml bottle PO SCH ×3 (08:14→18:42)
--- NOTE | 2019-10-14 08:24 | NUR ---
pt sitting up eating took all morning meds
--- NOTE | 2019-10-14 09:59 | NUR ---
in bed sleeping seen repostioning self in bed
--- NOTE | 2019-10-14 10:39 | NUR ---
pt sits up and then lays down when asked if she needs anything she says no
--- NOTE | 2019-10-14 11:27 | NUR ---
pt up walking around round asking for a dresser that has he under garmets in
--- NOTE | 2019-10-14 13:59 | NUR ---
pt ate lunch and now laying down tring to sleep
--- NOTE | 2019-10-14 16:21 | NUR ---
pt laying in bed resting seen repositoning self
--- NOTE | 2019-10-14 17:00 | NUR ---
pt refused vitals. Rn notified
[2019-10-14] MEDS: acetaminophen 325mg tablet PO PRN (17:58)
--- NOTE | 2019-10-14 19:00 | NUR ---
Pt up eating dinner.
[2019-10-14] MEDS: ibuprofen 200mg tablet PO SCH (20:00)
--- NOTE | 2019-10-14 20:00 | NUR ---
Pt resting comfortably, no s/s of distress, respirations normal.
--- NOTE | 2019-10-14 21:00 | NUR ---
Pt given risperidone in jello. Pt refused to take additional medications.
--- NOTE | 2019-10-14 21:00 | NUR ---
Pt up to restroom with walker.
--- NOTE | 2019-10-14 22:00 | NUR ---
Pt resting comfortably, no s/s of distress, respirations normal.
--- NOTE | 2019-10-14 23:00 | NUR ---
Pt up asking if it was daytime or nighttime. Pt reoriented to time.
--- NOTE | 2019-10-15 | NUR ---
Pt resting comfortably, no s/s of distress, respirations normal.
--- NOTE | 2019-10-15 01:00 | NUR ---
Pt resting comfortably, no s/s of distress, respirations normal.
--- NOTE | 2019-10-15 02:00 | NUR ---
Pt resting comfortably, no s/s of distress, respirations normal.
--- NOTE | 2019-10-15 03:08 | NUR ---
Pt resting comfortably, no s/s of distress, respirations normal.
--- NOTE | 2019-10-15 04:00 | NUR ---
Pt resting comfortably, no s/s of distress, respirations normal.
--- NOTE | 2019-10-15 05:00 | NUR ---
Pt up to bathroom. Had complaints of diarrhea. No signs of diarrhea seen or smelled. Pt assisted back to bed.
--- NOTE | 2019-10-15 07:00 | NUR ---
pt resting in bed. no concerns at this time
[2019-10-15] MEDS: nicotine 7mg patch - 24hr TD SCH ×2 (08:00→08:29)
[2019-10-15] MEDS: lactobacillus rhamnosus 10,000 MMU CELLS/CAPSULE PO SCH ×2 (08:29→20:00)
[2019-10-15] MEDS: levoTHYROXINE 75mcg tablet PO SCH (08:29)
[2019-10-15] MEDS: oxybutynin 5mg tablet PO SCH ×2 (08:29→20:00)
[2019-10-15] MEDS: duloxetine 20mg capsule.DR PO SCH (08:29)
[2019-10-15] MEDS: LORazepam 1 MG tablet PO PRN (08:29)
[2019-10-15] MEDS: risperiDONE 0.5mg tablet PO SCH ×2 (08:29→20:26)
[2019-10-15] MEDS: lactose-reduced food (Ensure High Protein) 237ml bottle PO SCH ×3 (08:35→18:54)
--- NOTE | 2019-10-15 09:00 | NUR ---
pt resting in bed. no concerns at this time
--- NOTE | 2019-10-15 11:00 | NUR ---
pt is ambulating around unit with her walker
--- NOTE | 2019-10-15 12:45 | NUR ---
Patient requested new blanket at this time. Patient bed remade and new blankets were given. Patient is pleasant and alert at this time.
--- NOTE | 2019-10-15 13:00 | NUR ---
pt resting in bed. no concerns at this time
--- NOTE | 2019-10-15 15:00 | NUR ---
pt walking with her walker. no concerns at this time
--- NOTE | 2019-10-15 15:04 | NUR ---
Patient awake and laying in bed at this time. Patient givenm new blank Addendum: 10/15/19 at 1505 by [email or web address] Patient given new blanket, RR is 16 and unlabored.
--- NOTE | 2019-10-15 17:10 | NUR ---
pt resting in bed. no concerns at this time
--- NOTE | 2019-10-15 18:01 | NUR ---
pt resting in bed. no concerns at this time
--- NOTE | 2019-10-15 18:30 | NUR ---
Assumed pt care. Pt up ambulating with walker.
--- NOTE | 2019-10-15 19:00 | NUR ---
Could not find nicotine patch on patient to remove. Will continue to monitor and search surroundings for nicotine patch. Patch documented as removed per not finding patch on patient.
--- NOTE | 2019-10-15 19:00 | NUR ---
Pt states she is having diarrhea, however, a softball sized stool was found in her underwear. No diarrhea seen.
--- NOTE | 2019-10-15 19:44 | NUR ---
The patient had a very large bowel movement in her underwear before she made it to the bathroom. She smeared it everywhere and required help to get cleaned and changed in to clean clothes.
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
[2019-10-15] MEDS: ibuprofen 200mg tablet PO SCH (20:00)
--- NOTE | 2019-10-15 20:33 | NUR ---
Administered medications one at a time. Pt took risperidone, but spit out subsequent other medications.
--- NOTE | 2019-10-15 20:35 | NUR ---
Pt's pants changed and new mesh panties given. Pt assisted in bathroom.
--- NOTE | 2019-10-15 22:00 | NUR ---
Pt resting quietly, respirations normal, no s/s of distress.
--- NOTE | 2019-10-15 23:00 | NUR ---
Pt resting quietly, respirations normal, no s/s of distress.
--- NOTE | 2019-10-16 | NUR ---
Pt resting quietly, respirations normal, no s/s of distress.
--- NOTE | 2019-10-16 01:12 | NUR ---
Pt resting quietly, respirations normal, no s/s of distress.
--- NOTE | 2019-10-16 02:00 | NUR ---
Pt resting quietly, respirations normal, no s/s of distress.
--- NOTE | 2019-10-16 03:00 | NUR ---
Pt resting quietly, respirations normal, no s/s of distress.
--- NOTE | 2019-10-16 04:00 | NUR ---
Pt resting quietly, respirations normal, no s/s of distress.
--- NOTE | 2019-10-16 06:30 | NUR ---
received report from Jenna BENITEZ
[2019-10-16] MEDS: lactobacillus rhamnosus 10,000 MMU CELLS/CAPSULE PO SCH ×2 (07:37→23:13)
[2019-10-16] MEDS: LORazepam 1 MG tablet PO PRN (07:37)
[2019-10-16] MEDS: risperiDONE 0.5mg tablet PO SCH ×2 (07:37→23:13)
[2019-10-16] MEDS: duloxetine 20mg capsule.DR PO SCH (07:37)
[2019-10-16] MEDS: oxybutynin 5mg tablet PO SCH ×2 (07:41→23:12)
[2019-10-16] MEDS: levoTHYROXINE 75mcg tablet PO SCH (07:41)
[2019-10-16] MEDS: nicotine 7mg patch - 24hr TD SCH (08:00)
--- NOTE | 2019-10-16 08:30 | NUR ---
all meds received, patient requesting coffee
[2019-10-16] MEDS: lactose-reduced food (Ensure High Protein) 237ml bottle PO SCH ×3 (08:38→18:00)
--- NOTE | 2019-10-16 10:29 | NUR ---
handed over care of this patient to tayler BENITEZ
--- NOTE | 2019-10-16 10:50 | NUR ---
Patient taken outside in a wheelchair by [employer] and [employer] [facility]. No distress observed. Continue to monitor.
--- NOTE | 2019-10-16 11:40 | NUR ---
Patient back in her bed and sleeping. Continue to monitor.
--- NOTE | 2019-10-16 12:47 | NUR ---
Patient is up and walking with her walker. No distress observed. Continue to monitor.
--- NOTE | 2019-10-16 13:55 | NUR ---
Patient's arms photographed for bruising and wound to wrist.
--- NOTE | 2019-10-16 14:40 | NUR ---
Patient is up and down from her bed walking around with walker. No distress observed. Continue to monitor.
--- NOTE | 2019-10-16 15:26 | NUR ---
Patient talking to daughter Alethea on phone. Continue to monitor.
--- NOTE | 2019-10-16 15:26 | NUR ---
DPA Blaine Kenney, Son,
--- NOTE | 2019-10-16 17:24 | NUR ---
Patient sleeping on left side. No distress observed. Continue to monitor.
--- NOTE | 2019-10-16 19:10 | NUR ---
Patient is sleeping on her right side. Low fowlers position.
--- NOTE | 2019-10-16 20:13 | NUR ---
Patient remains sleeping on her right side. In view from the nursing station.
--- NOTE | 2019-10-16 21:00 | NUR ---
Patlient self re-positions onto her left side. s procedure writer asked this patient how she is doing? This patient replies that she is not feeling good, leave me alone. The patient is given warm blankets. She returns to bed.
--- NOTE | 2019-10-16 22:29 | NUR ---
Patient is sleeping on her right side. In view from the nursing station.
--- NOTE | 2019-10-16 22:31 | NUR ---
Patient is sleeping. This casualty underwriter awoke patient to see if she would comply with her medications. The patient tells this casualty underwriter that she is not feeling well and just wants to sleep. Patient will not discuss what is bothering her. Frequent rounding is being done for patient safety.
[2019-10-16] MEDS: ibuprofen 200mg tablet PO SCH (23:13)
--- NOTE | 2019-10-16 23:41 | NUR ---
Patient sat up in bed and drank 6 oz of insure over ice. Nightime meds were given. Patient up to sink, she brushes her teeth. Patient back to bed, she was guven warm blankets.
--- NOTE | 2019-10-17 01:10 | NUR ---
Patient is cooperative with staff. She returns to sleep without problem.
--- NOTE | 2019-10-17 02:30 | NUR ---
Patient is sleeping on her right side. In view from the nurses station.
--- NOTE | 2019-10-17 03:35 | NUR ---
Patient is sleeping quietly in a low fowlers positionl.
--- NOTE | 2019-10-17 04:30 | NUR ---
Patient is sleeping quietly.
--- NOTE | 2019-10-17 05:42 | NUR ---
Patient is awake getting her vital signs done.
--- NOTE | 2019-10-17 06:41 | NUR ---
Patient sleeping on left side. No distress observed. Continue to monitor.
--- NOTE | 2019-10-17 07:36 | NUR ---
Patient is up and walking around without her walker. Patient states she is supposed to walk without it. Patient is steady but advised patient to please use her walker. Continue to monitor.
[2019-10-17] MEDS: risperiDONE 0.5mg tablet PO SCH ×2 (07:57→20:43)
[2019-10-17] MEDS: lactobacillus rhamnosus 10,000 MMU CELLS/CAPSULE PO SCH ×2 (07:57→20:41)
[2019-10-17] MEDS: levoTHYROXINE 75mcg tablet PO SCH (07:57)
[2019-10-17] MEDS: oxybutynin 5mg tablet PO SCH ×2 (07:57→20:41)
[2019-10-17] MEDS: duloxetine 20mg capsule.DR PO SCH (07:57)
[2019-10-17] MEDS: nicotine 7mg patch - 24hr TD SCH (08:00)
--- NOTE | 2019-10-17 08:20 | NUR ---
Patient eating breakfast. No distress observed. Continue to monitor.
[2019-10-17] MEDS: lactose-reduced food (Ensure High Protein) 237ml bottle PO SCH ×3 (08:43→18:32)
--- NOTE | 2019-10-17 09:48 | NUR ---
Patient ambulatory to nurses station. No distress observed. Continue to monitor.
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
--- NOTE | 2019-10-17 11:20 | NUR ---
Patient sleeping on right side. No distress observed. Continue to monitor.
--- NOTE | 2019-10-17 13:15 | NUR ---
Patient sitting up and eating lunch. No distress observed. Continue to monitor.
--- NOTE | 2019-10-17 13:57 | NUR ---
Patient is up at the nurses station getting the phone. No distress observed. Continue to monitor.
[2019-10-17] MEDS: ibuprofen 200mg tablet PO SCH (20:41)
--- NOTE | 2019-10-17 22:45 | NUR ---
PT CURRENTLY RESTING QUIETLY. PT HAS BEEN UP AMBULATING TO THE RESTROOM NEEDED WITH HER WALKER. PT HAD SOME MINIMAL COMPLAINTS ABOUT THE AMOUNT OF LIGHT IN HER ROOM BUT OTHERWISE HAS BEEN FAIRLY QUIET. NO SIGNS OF DISTRESS NOTED AT THIS TIME, PT WAS COMPLIANT WITH MEDICATION. WILL CONT. TO MONITOR
--- NOTE | 2019-10-18 02:13 | NUR ---
PT AWAKE, AMBULATING TO RESTROOM. PT INQUIRED "HAVE WE HAD LUNCH YET" PT WAS REORIENTED TO IT BEING THE MIDDLE OF THE NIGHT. PT USED RESTROOM THEN CAME OUT STATING THAT THE TOILET WAS LEAKING AND SHE NEEDED DRY SOCKS. NEW NONSTICK SOCKS WERE PROVIDED AND PT WENT BACK TO BED. WILL CONT. TO MONITOR
--- NOTE | 2019-10-18 05:44 | NUR ---
PT HAS BEEN AWAKE OFF/ON SINCE 429. PT AMBULATES TO RESTROOM WITH WALKER, WAS AT ONE POINT LOOKING IN CUPBOARDS FOR SMALL PANTS BUT WAS EASILY REDIRECTABLE BACK TO HER BED. NO S/S OF DISTRESS NOTED. WILL CONT TO MONITOR
[2019-10-18] MEDS: cloNIDine 0.1 mg tablet PO PRN ×2 (05:59→17:53)
--- NOTE | 2019-10-18 06:30 | NUR ---
Patient is sitting at bedside at change of shift. No distress observed.
[2019-10-18] MEDS: nicotine 7mg patch - 24hr TD SCH ×2 (08:00→08:10)
[2019-10-18] MEDS: duloxetine 20mg capsule.DR PO SCH (08:10)
[2019-10-18] MEDS: oxybutynin 5mg tablet PO SCH ×2 (08:10→23:46)
[2019-10-18] MEDS: lactobacillus rhamnosus 10,000 MMU CELLS/CAPSULE PO SCH ×2 (08:10→20:00)
[2019-10-18] MEDS: levoTHYROXINE 75mcg tablet PO SCH (08:10)
[2019-10-18] MEDS: risperiDONE 0.5mg tablet PO SCH ×2 (08:10→23:46)
--- NOTE | 2019-10-18 08:32 | NUR ---
Patient is sitting at side of bed, eating brakfast.
--- NOTE | 2019-10-18 10:46 | NUR ---
Patient is laying in bed on her left side. No distress observed.
--- NOTE | 2019-10-18 11:30 | NUR ---
Patient seen talking on the phone, sitting on the edge of the bed. No distress observed. Patient requesting to "freshen up", so this RN provided a shampoo cap and combed patient's hair.
[2019-10-18] MEDS: lactose-reduced food (Ensure High Protein) 237ml bottle PO SCH ×2 (13:00→18:00)
--- NOTE | 2019-10-18 13:20 | NUR ---
Patient is sitting at edge of bed, eating lunch. No distress observed.
--- NOTE | 2019-10-18 14:28 | NUR ---
Yoel from [facility] at bedside to speak with patient at this time.
--- NOTE | 2019-10-18 16:00 | NUR ---
Patient is resting in bed peacefully. No distress observed.
--- NOTE | 2019-10-18 19:28 | NUR ---
Patient did not eat dinner. Patient states she wants to sleep. "Leave me alone."
--- NOTE | 2019-10-18 20:15 | NUR ---
Patient sleeping quietly on her right side.
--- NOTE | 2019-10-18 20:36 | NUR ---
Patient is ambulatory to the bathroom and back using her walker. Patient had voided in bed. Patients bedding was changed. Patient was cleaned and given new scrubs. Patient is back in bed, vital signs repeated. B/P 171/62 102 18 SaO2 is 98 percent on room air. Patients oral temp is 99.2 Patient complains of some chills. Minor hip pain is present, PO APAP will be given.
--- NOTE | 2019-10-18 21:23 | NUR ---
Patient is sleeping quietly on her left side. This documentation writer will administer NOC Rx medicatins when patient awakens.
--- NOTE | 2019-10-18 21:33 | NUR ---
Rosa Isela sun in [facility] - 10/19/19 at 0543 by ALENA Patient sleeping on her left side. Patient self repositions. A warm blanket was placed on patient.
--- NOTE | 2019-10-18 22:05 | NUR ---
Patient out of bed to the bathroom. Redirected back to bed.
--- NOTE | 2019-10-18 22:43 | NUR ---
Assumed care of patient from primary RN's, breakperiod . pt sleeping on left side . Resp unlabored . will continue to monitor and reassess as needed .
--- NOTE | 2019-10-18 23:19 | NUR ---
Patient is sleeping quietly, low fowlers in bed. In view from nursing station.
[2019-10-18] MEDS: ibuprofen 200mg tablet PO SCH (23:46)
--- NOTE | 2019-10-19 03:00 | NUR ---
Patient is sleeping quietly, in view from the nursing station.
--- NOTE | 2019-10-19 04:09 | NUR ---
Patient awakens for a short time. She ambulates to the nursing station, states she wants to go shopping for groceries in the am. "We need to make a grocery list." The patient is redirected to bed.
--- NOTE | 2019-10-19 05:35 | NUR ---
Patient is up to the sink to rince her dentures. Patient then returns to bed and drinks 8 oz of whole milk. She is sitting at bedside.
[2019-10-19] MEDS: levoTHYROXINE 75mcg tablet PO SCH (07:24)
[2019-10-19] MEDS: duloxetine 20mg capsule.DR PO SCH (07:24)
[2019-10-19] MEDS: lactobacillus rhamnosus 10,000 MMU CELLS/CAPSULE PO SCH ×2 (07:24→23:18)
[2019-10-19] MEDS: oxybutynin 5mg tablet PO SCH ×2 (07:24→23:19)
[2019-10-19] MEDS: nicotine 7mg patch - 24hr TD SCH (07:25)
[2019-10-19] MEDS: risperiDONE 0.5mg tablet PO SCH ×2 (07:25→23:18)
[2019-10-19] MEDS: lactose-reduced food (Ensure High Protein) 237ml bottle PO SCH ×3 (08:11→18:00)
--- NOTE | 2019-10-19 18:45 | NUR ---
Patient is sleeping. She awakens and sits up at the side of the bed. This patient is oriented to person and place. She recognizes this expert medical writer.
--- NOTE | 2019-10-19 19:30 | NUR ---
Patient has eaten her dinner. Patient ambulates to bathroom using her walker. Patient returns to bed. New bedding provided. Patient goes to sleep.
--- NOTE | 2019-10-19 21:46 | NUR ---
Patient is sleeping on her right side in bed. In view in bed.
--- NOTE | 2019-10-19 22:39 | NUR ---
Patient sleeping on her left side. Patient will be given her nightime meds when she awakens.
[2019-10-19] MEDS: QUEtiapine 25mg tablet PO PRN (23:18)
[2019-10-19] MEDS: ibuprofen 200mg tablet PO SCH (23:18)
[2019-10-19] MEDS: cloNIDine 0.1 mg tablet PO PRN (23:19)
--- NOTE | 2019-10-20 00:30 | NUR ---
Patient is sleeping quietly on her right side.
--- NOTE | 2019-10-20 01:17 | NUR ---
Patient is sleeping quietly on her right side. Legs are flexed. Patient is in view from nurses station. Warm blankent in place.
--- NOTE | 2019-10-20 03:20 | NUR ---
Patient in bed lying on her right side. Pt. is sleeping comfortably with no distress noted. Respirations even and unlabored.
--- NOTE | 2019-10-20 04:00 | NUR ---
Patient is sleeping quietlly on her right side in bed.
--- NOTE | 2019-10-20 05:18 | NUR ---
Patient continues to sleeping on left side, resting quietly. Respirations even and unlabored.
--- NOTE | 2019-10-20 07:23 | NUR ---
0650: patient out of bed ambulating with FWW to BR, noted to have been incontinent. assisted with pericare, change of clothes, bed linens changed. Requested coffee.
[2019-10-20] MEDS: nicotine 7mg patch - 24hr TD SCH (08:00)
[2019-10-20] MEDS: lactobacillus rhamnosus 10,000 MMU CELLS/CAPSULE PO SCH ×2 (08:13→20:00)
[2019-10-20] MEDS: risperiDONE 0.5mg tablet PO SCH ×2 (08:13→21:07)
[2019-10-20] MEDS: duloxetine 20mg capsule.DR PO SCH (08:13)
[2019-10-20] MEDS: oxybutynin 5mg tablet PO SCH ×2 (08:13→21:07)
[2019-10-20] MEDS: levoTHYROXINE 75mcg tablet PO SCH (08:13)
[2019-10-20] MEDS: lactose-reduced food (Ensure High Protein) 237ml bottle PO SCH ×3 (08:16→18:00)
--- NOTE | 2019-10-20 08:25 | NUR ---
Compliant with medication administration, states she did not want the nicotine patch. Eating breakfast, patient reports history of throat cancer which makes it difficult for her to swallow. notified parking attendant for bedside swallow. Dietary order is for pureed, however received a regular tray.
--- NOTE | 2019-10-20 09:50 | NUR ---
resting in bed, no needs at this time.
--- NOTE | 2019-10-20 13:53 | NUR ---
Patient was sleeping, encouraged to eat. Ambulated to BR with use of FWW.
--- NOTE | 2019-10-20 16:55 | NUR ---
Notified dietary of error on patient diet order, should be a pureed diet r/t history of throat cancer, has been receiving regular and has difficulty limiting intake. Attempted to call her children without success. states "if you do not help me, I am never getting out of here" while leaving a message.
--- NOTE | 2019-10-20 17:44 | NUR ---
Sleeping in bed.
[2019-10-20] MEDS: ibuprofen 200mg tablet PO SCH (21:07)
[2019-10-20] MEDS: QUEtiapine 25mg tablet PO PRN (21:07)
[2019-10-21] MEDS: nicotine 7mg patch - 24hr TD SCH (07:30)
[2019-10-21] MEDS: lactose-reduced food (Ensure High Protein) 237ml bottle PO SCH ×3 (07:30→18:00)
[2019-10-21] MEDS: lactobacillus rhamnosus 10,000 MMU CELLS/CAPSULE PO SCH ×2 (07:40→20:26)
[2019-10-21] MEDS: oxybutynin 5mg tablet PO SCH ×2 (07:40→20:25)
[2019-10-21] MEDS: duloxetine 20mg capsule.DR PO SCH (07:40)
[2019-10-21] MEDS: risperiDONE 0.5mg tablet PO SCH ×2 (07:40→20:25)
[2019-10-21] MEDS: levoTHYROXINE 75mcg tablet PO SCH (07:40)
--- NOTE | 2019-10-21 19:10 | NUR ---
Pt is currently sleeping on her left side within line of sight of the nursing station. She does not show signs of distress or discomfort.
--- NOTE | 2019-10-21 20:09 | NUR ---
Pt is currently sleeping on her right side with visible respirations and in line of sight of the nursing station. She does not show signs of discomfort or distress.
[2019-10-21] MEDS: ibuprofen 200mg tablet PO SCH (20:26)
--- NOTE | 2019-10-21 21:00 | NUR ---
Pt is sitting up on the side of her bed within line of sight of the nursing station sipping her water at this time. She denies pain or distress.
--- NOTE | 2019-10-21 22:10 | NUR ---
Pt is currently sleeping in bed on her back with visible respirations. She is within direct line of sight of the nursing station. Pt does not show sign of distress or discomfort.
--- NOTE | 2019-10-22 00:23 | NUR ---
Pt is currently sleeping on her left side with visible respirations. She does not show signs of distress or discomfort. PT is within direct line of sight of the nursing station.
--- NOTE | 2019-10-22 01:39 | NUR ---
PT gets up and looks at the clock, and asks to use the phone. Pt reminded of the phone times and she returns to bed.
--- NOTE | 2019-10-22 03:27 | NUR ---
PT requests jello and crackers which is given to her. After eating she lays back down.
--- NOTE | 2019-10-22 04:58 | NUR ---
Pt wakes up and sits on the edge of her bed. She tells staff she needs to go shopping. PT is reminded she is in the hospital, but she disagrees and says she will go shopping later.
--- NOTE | 2019-10-22 06:00 | NUR ---
pt is sleeping no concerns at this time
--- NOTE | 2019-10-22 08:00 | NUR ---
pt is awake. pt is ambulating around with her walker. pt wants to call her friend lucy
[2019-10-22] MEDS: duloxetine 20mg capsule.DR PO SCH (08:21)
[2019-10-22] MEDS: risperiDONE 0.5mg tablet PO SCH ×2 (08:21→20:30)
[2019-10-22] MEDS: oxybutynin 5mg tablet PO SCH ×2 (08:21→20:30)
[2019-10-22] MEDS: lactobacillus rhamnosus 10,000 MMU CELLS/CAPSULE PO SCH ×2 (08:21→20:30)
[2019-10-22] MEDS: levoTHYROXINE 75mcg tablet PO SCH (08:21)
[2019-10-22] MEDS: lactose-reduced food (Ensure High Protein) 237ml bottle PO SCH ×3 (08:39→18:00)
--- NOTE | 2019-10-22 10:00 | NUR ---
no concerns at this time. pt's clothing was changed to clean pants and sweater
--- NOTE | 2019-10-22 11:46 | NUR ---
Assumed care of pt while primary nurse on break. Pt climbed sitting up in chair drinking fluids. Will continue to monitor.
--- NOTE | 2019-10-22 12:15 | NUR ---
pt is ambulating around with her walker. she thinks she is going up stairs today. pt told she is not leaving today. pt is redirectable but is often confused about time and place
--- NOTE | 2019-10-22 14:00 | NUR ---
pt is resting in her bed. so issues at this time
--- NOTE | 2019-10-22 16:00 | NUR ---
pt is resting in her room. tired to call arina and her son. no answer
--- NOTE | 2019-10-22 17:50 | NUR ---
pt is resting in her room
--- NOTE | 2019-10-22 20:15 | NUR ---
Pt. sitting on side of the bed, resting quietly.
[2019-10-22] MEDS: ibuprofen 200mg tablet PO SCH (20:31)
--- NOTE | 2019-10-22 21:16 | NUR ---
pt is sleeping, resp even and unlabored
--- NOTE | 2019-10-22 21:44 | NUR ---
pt amb with steady gait to restroom, using walker
--- NOTE | 2019-10-22 23:45 | NUR ---
pt is sleeping,
--- NOTE | 2019-10-23 00:30 | NUR ---
Assumed care from EMMANUEL Salcido. Pt. currently sleeping on R side position.
--- NOTE | 2019-10-23 01:31 | NUR ---
Pt. continues to sleep on her L side. She turns self. No needs at this time.
--- NOTE | 2019-10-23 02:33 | NUR ---
Pt. ambulating to the bathroom using walker. Supervision provided for safety.
--- NOTE | 2019-10-23 03:29 | NUR ---
Pt. sitting on side of bed, drinking some water and talking to staff. She is plesantly confused but easily redirectable.
--- NOTE | 2019-10-23 04:23 | NUR ---
Pt. sleeping on L side.
--- NOTE | 2019-10-23 04:36 | NUR ---
Patient sleeping on R side. No needs at this time.
--- NOTE | 2019-10-23 05:28 | NUR ---
Pt. sleeping on L side at this time.
[2019-10-23] MEDS: acetaminophen 325mg tablet PO PRN (07:09)
[2019-10-23] MEDS: lactobacillus rhamnosus 10,000 MMU CELLS/CAPSULE PO SCH ×2 (07:09→20:56)
[2019-10-23] MEDS: duloxetine 20mg capsule.DR PO SCH (07:09)
[2019-10-23] MEDS: levoTHYROXINE 75mcg tablet PO SCH (07:09)
[2019-10-23] MEDS: risperiDONE 0.5mg tablet PO SCH ×2 (07:09→20:57)
[2019-10-23] MEDS: oxybutynin 5mg tablet PO SCH ×2 (07:09→20:00)
--- NOTE | 2019-10-23 07:10 | NUR ---
Received pt awake sitting up in bed. Complaints of back pain. Pt given tylenol.
[2019-10-23] MEDS: lactose-reduced food (Ensure High Protein) 237ml bottle PO SCH ×3 (08:00→18:00)
--- NOTE | 2019-10-23 09:00 | NUR ---
Pt up for breakfast. Pt sitting up in chair reading magazine.
--- NOTE | 2019-10-23 11:03 | NUR ---
Patient request a shower, currently resting comfortably.
--- NOTE | 2019-10-23 13:00 | NUR ---
Pt sitting up at bedside requesting lunch. No other complaints.
--- NOTE | 2019-10-23 15:00 | NUR ---
Pt up for lunch and then up to bathroom, then once returning to bed eventually fell asleep and currently is sleeping.
--- NOTE | 2019-10-23 17:00 | NUR ---
Pt laying in bed. Pt up x 1 to the bathroom. No complaints or requests.
[2019-10-23] MEDS: QUEtiapine 25mg tablet PO PRN (20:56)
[2019-10-23] MEDS: ibuprofen 200mg tablet PO SCH (20:57)
--- NOTE | 2019-10-23 21:20 | NUR ---
pt awoke for hs meds, pt sat up on side of bed with no issue. pt went back to sleep after taking meds.
--- NOTE | 2019-10-23 23:11 | NUR ---
pt is sleeping, no s/s of distress noted.
--- NOTE | 2019-10-24 01:38 | NUR ---
pt continues to sleep, no s/s of distress noted.
--- NOTE | 2019-10-24 04:00 | NUR ---
pt continues to sleep, no s/s of distress noted.
--- NOTE | 2019-10-24 04:27 | NUR ---
pt continues to sleep, no s/s of distress noted.
--- NOTE | 2019-10-24 06:30 | NUR ---
Patient was seen resting in bed peacefully at change of shift. No distress observed. She is seen ambulating with her 2WW to the bathroom. She ten went back to bed. No distress observed.
--- NOTE | 2019-10-24 08:30 | NUR ---
Patient ate the majority of her breakfast and took her medications as ordered and directed.
[2019-10-24] MEDS: oxybutynin 5mg tablet PO SCH ×2 (08:33→20:31)
[2019-10-24] MEDS: lactobacillus rhamnosus 10,000 MMU CELLS/CAPSULE PO SCH ×2 (08:33→20:31)
[2019-10-24] MEDS: duloxetine 20mg capsule.DR PO SCH (08:33)
[2019-10-24] MEDS: risperiDONE 0.5mg tablet PO SCH ×2 (08:34→20:31)
[2019-10-24] MEDS: lactose-reduced food (Ensure High Protein) 237ml bottle PO SCH ×4 (08:36→20:24)
[2019-10-24] MEDS: levoTHYROXINE 75mcg tablet PO SCH (08:38)
--- NOTE | 2019-10-24 10:15 | NUR ---
Patient is restin in bed peacefully at this time. No distress observed
--- NOTE | 2019-10-24 11:01 | NUR ---
Patient is sitting at bedside drinking coffee.
--- NOTE | 2019-10-24 11:08 | NUR ---
Received phone call from Kellie at [facility] checking status of patient. Informed her that patient is still here. Kellie states she will reach out to Rose, manager java.
--- NOTE | 2019-10-24 12:48 | NUR ---
Patient is sitting at bedside eating a snack. No distress observed.
--- NOTE | 2019-10-24 14:27 | NUR ---
PT RESTING LAYING ON HER RIGHT SIDE, RESPIRATIONS EVEN AND UNLABORED WITH NO DISTRESS NOTED AT THIS TIME.
--- NOTE | 2019-10-24 16:26 | NUR ---
Patient is resting in bed peacefully, no distress observed.
--- NOTE | 2019-10-24 17:27 | NUR ---
Patient is resting in bed peacefully at this time. No distress observed.
[2019-10-24] MEDS: acetaminophen 325mg tablet PO PRN (18:34)
--- NOTE | 2019-10-24 20:00 | NUR ---
The patient has been resting on her bed. She was cooperative with the evening assessment. She stated that she was feeling depressed and stated, "I'm depressed, no kids, no phone calls, no correspondance from the outside world" She was oriented to month and year but she did think it was morning.
[2019-10-24] MEDS: ibuprofen 200mg tablet PO SCH (20:31)
--- NOTE | 2019-10-24 22:06 | NUR ---
the patient appears to be sleeping
--- NOTE | 2019-10-25 01:00 | NUR ---
The patient appears to be sleeping
--- NOTE | 2019-10-25 03:38 | NUR ---
The patient appears to be sleeping
--- NOTE | 2019-10-25 05:42 | NUR ---
The patient appears to be sleeping
--- NOTE | 2019-10-25 06:55 | NUR ---
Patient up and drinking coffee. Patient moving around with her walker. No distress observed at this time. Continue to monitor.
[2019-10-25] MEDS: duloxetine 20mg capsule.DR PO SCH (07:40)
[2019-10-25] MEDS: lactobacillus rhamnosus 10,000 MMU CELLS/CAPSULE PO SCH ×2 (07:40→20:32)
[2019-10-25] MEDS: oxybutynin 5mg tablet PO SCH ×2 (07:41→20:32)
[2019-10-25] MEDS: levoTHYROXINE 75mcg tablet PO SCH (07:41)
[2019-10-25] MEDS: risperiDONE 0.5mg tablet PO SCH ×2 (07:41→20:32)
--- NOTE | 2019-10-25 08:20 | NUR ---
Patient eating breakfast. No distress observed. Continue to monitor.
--- NOTE | 2019-10-25 10:05 | NUR ---
Patient sleeping supine. No distress observed. Continue to monitor.
--- NOTE | 2019-10-25 12:00 | NUR ---
Patient taken to the shower by Little. Then patient going to the [employer] to get lunch. Patient and staff will go outside to enjoy the weather and eat. Patient calm and in no distress. Ambulatory with walker.
[2019-10-25] MEDS: lactose-reduced food (Ensure High Protein) 237ml bottle PO SCH ×2 (13:00→18:00)
--- NOTE | 2019-10-25 13:24 | NUR ---
Patient out and not available to drink Protein shake.
--- NOTE | 2019-10-25 15:01 | NUR ---
Patient sleeping on left side. No distress observed. Continue to monitor.
--- NOTE | 2019-10-25 16:35 | NUR ---
Patient sleeping on right side. No distress observed. Continue to monitor.
--- NOTE | 2019-10-25 17:37 | NUR ---
Patient sitting up and snacking No distress observed. Continue to monitor.
[2019-10-25] MEDS: acetaminophen 325mg tablet PO PRN (18:09)
--- NOTE | 2019-10-25 18:30 | NUR ---
Assumed care of patient. Pt sitting on side of bed, appropriately oriented. Respirations even and unlabored.
[2019-10-25] MEDS: ibuprofen 200mg tablet PO SCH (20:32)
--- NOTE | 2019-10-25 20:33 | NUR ---
Patient up for HS medications. Patient cooperative and in no distress.
--- NOTE | 2019-10-25 22:25 | NUR ---
Pt appears to be sleeping on left side, no apparent sign of distress. Respirations even and unlabored.
--- NOTE | 2019-10-26 00:34 | NUR ---
Patient appears to be sleeping on left side, rr even and unlabored.
--- NOTE | 2019-10-26 04:30 | NUR ---
Patient appears to be sleeping, lying on right side. Respirations even and unlabored.
--- NOTE | 2019-10-26 06:25 | NUR ---
Patient sleeping on left side. No distress observed. Continue to monitor.
[2019-10-26] MEDS: levoTHYROXINE 75mcg tablet PO SCH (08:12)
[2019-10-26] MEDS: risperiDONE 0.5mg tablet PO SCH ×2 (08:13→23:30)
[2019-10-26] MEDS: oxybutynin 5mg tablet PO SCH ×2 (08:13→23:30)
[2019-10-26] MEDS: lactobacillus rhamnosus 10,000 MMU CELLS/CAPSULE PO SCH ×2 (08:13→23:30)
[2019-10-26] MEDS: duloxetine 20mg capsule.DR PO SCH (08:14)
[2019-10-26] MEDS: lactose-reduced food (Ensure High Protein) 237ml bottle PO SCH ×3 (08:15→18:00)
--- NOTE | 2019-10-26 08:20 | NUR ---
Patient eating breakfast. No distress observed. Patient has been up and about with her walker for over and hour. Continue to monitor.
--- NOTE | 2019-10-26 10:59 | NUR ---
pt sleeping in bed on left side, no distress noted.
--- NOTE | 2019-10-26 12:45 | NUR ---
Patient sitting at the side of her bed chatting with the staff. No distress observed. Continue to monitor.
--- NOTE | 2019-10-26 14:50 | NUR ---
Patient resting in bed. No distress observed. Continue to monitor.
--- NOTE | 2019-10-26 15:31 | NUR ---
Patient eating extra sandwich that was sent up for patient. No distress observed. Continue to monitor.
--- NOTE | 2019-10-26 20:19 | NUR ---
PT UP TO BR TO VOID, THEN STOOD AT THE UNIT SINK WASHING HER HANDS. REGULARLY REQUESTING THINGS (ICE WATER, A WARM BLANKET, SOCKS...). rEGULARLY COMING UP TO NURSES STATION TO MAKE REQUESTS OR DROP SOMETHING IN THE GARBAGE CAN. SHE IS CALM AND REDIRECTABLE.
[2019-10-26] MEDS: ibuprofen 200mg tablet PO SCH (23:30)
--- NOTE | 2019-10-26 23:51 | NUR ---
PT WAS SLEEPING DURING MY NIGHTTIME MED PASS, SO EVENING MEDS NOT GIVEN. PT AWOKE 30 MIN AGO AND SAT UP . ASKED FOR COFFEE AND STATED "YES" THAT SHE WAS READY FOR HER EVENING MEDS. MEDS TAKEN WITH NO PROBLEM. PT FINISHED HER DECAF COFFEE AND LAY BACK DOWN.
[2019-10-27] MEDS: acetaminophen 325mg tablet PO PRN ×2 (02:56→11:06)
--- NOTE | 2019-10-27 02:56 | NUR ---
PT UP TO NURSES STATION REQUESTING "MY PAIN PILL". REPORTS PAIN THE RIGHT MEDIAL KNEE. AREA APPEARS WNL. GIVEN TYLENOL 650 AND JELLO.
--- NOTE | 2019-10-27 05:02 | NUR ---
Pt irina. Sitter within view of Pt aat
--- NOTE | 2019-10-27 05:17 | NUR ---
Pt up and walking around the unit. She is now sitting on the edge of her bed.
[2019-10-27] MEDS: lactobacillus rhamnosus 10,000 MMU CELLS/CAPSULE PO SCH ×2 (07:26→20:16)
[2019-10-27] MEDS: oxybutynin 5mg tablet PO SCH ×2 (07:26→20:16)
[2019-10-27] MEDS: duloxetine 20mg capsule.DR PO SCH (07:26)
[2019-10-27] MEDS: levoTHYROXINE 75mcg tablet PO SCH (07:26)
[2019-10-27] MEDS: risperiDONE 0.5mg tablet PO SCH ×2 (07:26→20:16)
[2019-10-27] MEDS: lactose-reduced food (Ensure High Protein) 237ml bottle PO SCH ×3 (07:31→18:00)
--- NOTE | 2019-10-27 18:20 | NUR ---
Assumed care of patient, pt. sitting on edge of bed at this time eating dinner, rr even and unlabored.
[2019-10-27] MEDS: ibuprofen 200mg tablet PO SCH (20:16)
--- NOTE | 2019-10-27 20:30 | NUR ---
Pt. compliant with all medications and 1:1 completed at bedside. She is alert and oriented, and continues to deny any MH s/s. However pt. does admit that she does feel somewhat down r/t being here for so long. Pt. states, "It's dark down here, I just want to go outside sometimes." Pt. reports a plan to sell her house and get her own apartment in [place]. She consumes an HS snack and is able to ambulate independently with assistance of FWW. Fall precautions remain in place.
--- NOTE | 2019-10-27 22:30 | NUR ---
Pt. sleeping at this time, appears to be resting comfortably.
--- NOTE | 2019-10-28 00:34 | NUR ---
Pt. sleeping at this time, laying on right side, rr even and unlabored.
--- NOTE | 2019-10-28 02:30 | NUR ---
Pt. up to use the BR and then returns back to bed, will monitor.
--- NOTE | 2019-10-28 04:31 | NUR ---
Pt. awake at this time, requesting coffee. This group underwriter provided her education regarding the time, pt. reported understanding and returned to bed. Will continue to monitor.
[2019-10-28] MEDS: cloNIDine 0.1 mg tablet PO PRN (05:15)
[2019-10-28] MEDS: acetaminophen 325mg tablet PO PRN ×2 (05:15→15:40)
--- NOTE | 2019-10-28 05:16 | NUR ---
Pt. had a slightly elevated BP and c/o chronic low back pain, PRN Clonidine and Tylenol administered. Will continue to monitor.
--- NOTE | 2019-10-28 06:02 | NUR ---
Pt. sleeping at this time, appears to be resting comfortably, will monitor.
[2019-10-28] MEDS: duloxetine 20mg capsule.DR PO SCH (07:49)
[2019-10-28] MEDS: levoTHYROXINE 75mcg tablet PO SCH (07:49)
[2019-10-28] MEDS: lactobacillus rhamnosus 10,000 MMU CELLS/CAPSULE PO SCH ×2 (07:49→20:00)
[2019-10-28] MEDS: oxybutynin 5mg tablet PO SCH ×2 (07:49→20:00)
[2019-10-28] MEDS: risperiDONE 0.5mg tablet PO SCH ×2 (07:49→20:00)
[2019-10-28] MEDS: lactose-reduced food (Ensure High Protein) 237ml bottle PO SCH ×3 (07:51→18:20)
--- NOTE | 2019-10-28 08:37 | NUR ---
pt ate breakfast took meds and has been up walking around this morning
--- NOTE | 2019-10-28 13:20 | NUR ---
pt sitting up eating lunch
--- NOTE | 2019-10-28 17:30 | NUR ---
pt in bed resting ambulates self to bathroom and does most of own self care
--- NOTE | 2019-10-28 19:15 | NUR ---
Pt refusing to eat dinner after awaking pt to eat. Pt offered a snack and refused that as well.
[2019-10-28] MEDS: ibuprofen 200mg tablet PO SCH (20:00)
--- NOTE | 2019-10-28 20:17 | NUR ---
Unable to administer meds at this time due to pt not willing to fully awake, cooperate, and sit up to take them. Will try again once the pt fully awakes and becomes more cooperative.
--- NOTE | 2019-10-29 00:17 | NUR ---
Pt got up and had incontinence of urine. Pt changed, cleaned up, and all bedding changed. Pt sitting up and eating.
--- NOTE | 2019-10-29 07:25 | NUR ---
Received reprot from EMMANUEL Rosenbaum. Patient is moved from main ER over to overflow. She is pleasant and cooperative with care. She appears forgetful and impulsive and asks frequently for coffee, even after being told she will have to wait a moment. She is sitting at side of bed and is seen intermittently ambulating with her 2 WW. No distress observed, will continue to monitor
[2019-10-29] MEDS: lactose-reduced food (Ensure High Protein) 237ml bottle PO SCH ×3 (08:00→18:38)
--- NOTE | 2019-10-29 08:14 | NUR ---
Patient has had an episode of epistaxis with thick, red blood from the left nare. Pressure held initially for 10-12 munutes and then held again for a seperate 15 minutes. No distress observed. Provider notified.
--- NOTE | 2019-10-29 08:36 | NUR ---
Patient is sitting at bedside in chair, eating breakfast. BP is 172/70. Nose is no longer bleeding after holding pressure for 17 minutes. Patient states she will not take her medications until after breakfast.
[2019-10-29] MEDS: levoTHYROXINE 75mcg tablet PO SCH (09:25)
[2019-10-29] MEDS: lactobacillus rhamnosus 10,000 MMU CELLS/CAPSULE PO SCH ×2 (09:26→20:43)
[2019-10-29] MEDS: oxybutynin 5mg tablet PO SCH ×2 (09:26→20:42)
[2019-10-29] MEDS: duloxetine 20mg capsule.DR PO SCH (09:26)
[2019-10-29] MEDS: risperiDONE 0.5mg tablet PO SCH ×2 (09:26→20:43)
[2019-10-29] MEDS: cloNIDine 0.1 mg tablet PO PRN (09:30)
[2019-10-29] MEDS: acetaminophen 325mg tablet PO PRN (10:07)
--- NOTE | 2019-10-29 10:08 | NUR ---
patient c/o pain in her back. Tylenol PRN given
--- NOTE | 2019-10-29 11:55 | NUR ---
Patient seen ambulating self to the bathroom with 2 WW.
--- NOTE | 2019-10-29 12:03 | NUR ---
Patient requesting something for diarrhea.
--- NOTE | 2019-10-29 12:40 | NUR ---
primary RN was sent on a lunch break. pt awake sitting up in bed at this time
--- NOTE | 2019-10-29 14:00 | NUR ---
Patient is sitting at bedside. No distress observed.
--- NOTE | 2019-10-29 19:24 | NUR ---
PT sits and eats some of her dinner, but is observedchewing her food and spitting some back out on her tray. PT is calm and cooperative.
[2019-10-29] MEDS: ibuprofen 200mg tablet PO SCH (20:42)
--- NOTE | 2019-10-29 21:46 | NUR ---
PT HS medication compliant. She rests in bed on her L side
--- NOTE | 2019-10-29 23:28 | NUR ---
Pt asleep on back, RR WNL no signs or symptoms of distress at this time.
--- NOTE | 2019-10-30 01:09 | NUR ---
PT woke up asking for coffee, staff assured pt she could have coffee in the morning. She was not pleased with this answer, but promptly went back to sleep.
--- NOTE | 2019-10-30 05:09 | NUR ---
Pt gets up and uses the restroom. Pt then gets back into bed and goes to sleep. RR WNL.
--- NOTE | 2019-10-30 06:32 | NUR ---
Up to bathroom with walker
[2019-10-30] MEDS: oxybutynin 5mg tablet PO SCH ×2 (08:00→21:02)
[2019-10-30] MEDS: lactose-reduced food (Ensure High Protein) 237ml bottle PO SCH ×3 (09:18→18:00)
[2019-10-30] MEDS: lactobacillus rhamnosus 10,000 MMU CELLS/CAPSULE PO SCH ×2 (09:18→21:02)
[2019-10-30] MEDS: duloxetine 20mg capsule.DR PO SCH (09:18)
[2019-10-30] MEDS: risperiDONE 0.5mg tablet PO SCH ×2 (09:18→21:01)
[2019-10-30] MEDS: levoTHYROXINE 75mcg tablet PO SCH (09:18)
--- NOTE | 2019-10-30 09:29 | NUR ---
Pt up with front wheel walker, walking to the sink and back to bed.
--- NOTE | 2019-10-30 10:38 | NUR ---
PAGED LEANDRO WITH SECURITY MONITOR LAST UPDATE ON PT CHART BY SOCIAL SERVICE WAS 10/25
--- NOTE | 2019-10-30 11:14 | NUR ---
Resting in bed with eyes closed. Has been walking around all morning with her walker. Ate breakfast and had snacks.
[2019-10-30] MEDS: acetaminophen 325mg tablet PO PRN (16:07)
[2019-10-30] MEDS: ibuprofen 200mg tablet PO SCH (21:02)
--- NOTE | 2019-10-30 23:44 | NUR ---
Pt asleep at start of shift. Awakend to take meds. Pleasantly confused cooperative with care. Back to sleep at this time.
--- NOTE | 2019-10-31 04:09 | NUR ---
Pt slept most of shift. Periodically up to nurses station asking for coffee or to BR. Pt ambulates independantly using a walker. Gait steady.
--- NOTE | 2019-10-31 07:00 | NUR ---
pt sitting up in bed, asking for coffee and breakfast. calm and cooperative.
[2019-10-31] MEDS: lactose-reduced food (Ensure High Protein) 237ml bottle PO SCH ×3 (08:00→18:00)
--- NOTE | 2019-10-31 08:00 | NUR ---
walking around the unit asking when breakfast will be here, assured pt it will be here soon.
--- NOTE | 2019-10-31 09:15 | NUR ---
resting quietly in bed.
[2019-10-31] MEDS: levoTHYROXINE 75mcg tablet PO SCH (09:56)
[2019-10-31] MEDS: lactobacillus rhamnosus 10,000 MMU CELLS/CAPSULE PO SCH ×2 (09:56→20:30)
[2019-10-31] MEDS: risperiDONE 0.5mg tablet PO SCH ×2 (09:56→20:30)
[2019-10-31] MEDS: duloxetine 20mg capsule.DR PO SCH (09:56)
[2019-10-31] MEDS: oxybutynin 5mg tablet PO SCH ×2 (09:56→20:30)
--- NOTE | 2019-10-31 10:00 | NUR ---
resting quietly in bed.
--- NOTE | 2019-10-31 12:30 | NUR ---
sitting up in bed eating lunch, calm and quiet.
--- NOTE | 2019-10-31 14:00 | NUR ---
calm and quiet resting in bed.
--- NOTE | 2019-10-31 15:43 | NUR ---
resting in bed quietly.
--- NOTE | 2019-10-31 16:58 | NUR ---
Rosa Isela sun in ED - 10/31/19 at 1700 by BARBARA pt up to bathroom to brush teeth then back to bed. calm and cooperative.
--- NOTE | 2019-10-31 17:00 | NUR ---
pt up to bathroom with walker then back to bed.
--- NOTE | 2019-10-31 20:00 | NUR ---
The patient was sleeping at change of shift when the evening meal arrived. She did awake up and ate about 50% of her evening meal. She is quiet and withdrawn.
[2019-10-31] MEDS: ibuprofen 200mg tablet PO SCH (20:30)
--- NOTE | 2019-10-31 21:36 | NUR ---
The patient appears to be asleep on her bed.
--- NOTE | 2019-10-31 22:25 | NUR ---
THe patient appears to be sleeping
--- NOTE | 2019-11-01 01:31 | NUR ---
The patient appears to be sleeping.
--- NOTE | 2019-11-01 02:48 | NUR ---
The patient appears to be sleeping
--- NOTE | 2019-11-01 04:04 | NUR ---
The patient appears to be sleeping
--- NOTE | 2019-11-01 06:40 | NUR ---
Patient sleeping on left side. No distress observed. Continue to monitor.
--- NOTE | 2019-11-01 06:55 | NUR ---
Patient ambulatory, steady gait with walker to BR. No distress observed. Continue to monitor.
[2019-11-01] MEDS: lactobacillus rhamnosus 10,000 MMU CELLS/CAPSULE PO SCH ×2 (07:51→21:31)
[2019-11-01] MEDS: oxybutynin 5mg tablet PO SCH ×2 (07:51→21:53)
[2019-11-01] MEDS: duloxetine 20mg capsule.DR PO SCH (07:51)
[2019-11-01] MEDS: levoTHYROXINE 75mcg tablet PO SCH (07:51)
[2019-11-01] MEDS: risperiDONE 0.5mg tablet PO SCH ×2 (07:51→21:34)
[2019-11-01] MEDS: lactose-reduced food (Ensure High Protein) 237ml bottle PO SCH (08:00)
--- NOTE | 2019-11-01 08:20 | NUR ---
Patient sitting and eating breakfast. No distress observed. RN gave patient a cup of coffee. Continue to monitor.
--- NOTE | 2019-11-01 10:20 | NUR ---
Patient sleeping on left side. No distress observed. Continue to monitor.
--- NOTE | 2019-11-01 12:05 | NUR ---
Patient taken to cafeteria in a w/c to pick out her lunch.
--- NOTE | 2019-11-01 13:10 | NUR ---
Patient sitting at her table and eating her lunch. No distress observed. Continue to monitor.
--- NOTE | 2019-11-01 15:05 | NUR ---
Patient sleeping on her left side. No distress observed. Continue to monitor.
--- NOTE | 2019-11-01 17:10 | NUR ---
Patient continues to sleep. Patien appears depressed. Continue to monitor.
--- NOTE | 2019-11-01 18:45 | NUR ---
pt awoke from sleep to sit up at bedside to have dinner .
--- NOTE | 2019-11-01 18:56 | NUR ---
Pt ambulated to the bathroom with walker with steady gait , upon her return said kelli good eye contact . Back to bed to finish
--- NOTE | 2019-11-01 19:00 | NUR ---
REPORT TAKEN FROM EMMANUEL FERGUSON .PT CURRENTLY SLEEPIN SUPINE RESP UNLABORED IN THE SIGHT OF STAFF WILL CONTINUE TO MONITOR AND REASSESS
--- NOTE | 2019-11-01 20:00 | NUR ---
PT SLEEPING PEACFULLY SUPINE IN BED , AWOKE PT TO GIVE MEDICATION . PT REQUESTED SHE SLEEP A LITTLE BIT LONGER BEFORE SHE TAKES HER MEDICINE . ADVISED PT THAT MEDICATION WILL BE GIVEN BY 2100 SO THAT THEY CAN BE THERAPUTIC
--- NOTE | 2019-11-01 21:00 | NUR ---
PT AWOKE FOR PO MEDICATIONS . PT SAT UP AND COROPORATED TAKING MEDICATION . PT THOUGHT IT WAS IN RAUL EARLY AM. ADVISED PT THAT IT WAS 2100 AND THAT I WAS TIME TO TAKE HER MEDICATION
[2019-11-01] MEDS: ibuprofen 200mg tablet PO SCH (21:31)
--- NOTE | 2019-11-01 22:00 | NUR ---
PT UP OUT SUZETTE BED WITH WALKER AND NON SKID SOCKS TO BATHROOM
--- NOTE | 2019-11-01 23:00 | NUR ---
PT SLEEPING PEACEFULLY ON HER LEFT SIDE RESP UNLABORED WILL CONTINUE TO MONITOR AND REASSESS NEEDED
--- NOTE | 2019-11-02 00:08 | NUR ---
PT KI BRITTNI HER LEFT SIDE RESP UNLABORED WILL CONTINUE TO MONITOR AND REASSESS
--- NOTE | 2019-11-02 01:10 | NUR ---
SLEEPING PEACFULLY ON HER RIGHT SIDE RESP UNLABORED WILL CONTINUE TO MONITOR AND REASSESS NEEDED
--- NOTE | 2019-11-02 02:00 | NUR ---
pt sleeping supine resp unlabored in the line of site of staff will continue to reassess
--- NOTE | 2019-11-02 03:00 | NUR ---
SLEEPING PEACFULLY IN THE SUPINE POSITION RESP UNLABORED, WILL CONTINUE TO MONITOR AND REASSESS NEEDED
--- NOTE | 2019-11-02 04:10 | NUR ---
PT SLEEPING ON HER RIGHT SIDE RESP UNLABORED WILL CONTINUE TO MONITOR AND REASSESS NEEDED
--- NOTE | 2019-11-02 04:47 | NUR ---
UP OUT OF BED TO BATHROOM WITH NON SKID SOCKS AND WALKER
--- NOTE | 2019-11-02 05:50 | NUR ---
PT AWAKE AND CONTENT ALL VSS . PT ASKING FOR COFFEE. WILL CONTINUE TO ASSESS AND MONITOR NEEDED
--- NOTE | 2019-11-02 06:20 | NUR ---
Patient sleeping on left side. No distress observed. Continue to monitor.
[2019-11-02] MEDS: risperiDONE 0.5mg tablet PO SCH ×2 (07:31→20:04)
[2019-11-02] MEDS: oxybutynin 5mg tablet PO SCH ×2 (07:31→20:04)
[2019-11-02] MEDS: lactobacillus rhamnosus 10,000 MMU CELLS/CAPSULE PO SCH ×2 (07:31→20:04)
[2019-11-02] MEDS: duloxetine 20mg capsule.DR PO SCH (07:31)
[2019-11-02] MEDS: levoTHYROXINE 75mcg tablet PO SCH (07:32)
--- NOTE | 2019-11-02 07:40 | NUR ---
Patient up and asking for coffee. Patient calm and in no distress. Continue to monitor.
--- NOTE | 2019-11-02 09:08 | NUR ---
BREAKING PRIMARY RN, PT IS RESTING ON LEFT SIDE, EYES CLOSED REG BREATHING PRESENT, APPEARS TO BE ASLEEP, WILL CONT TO MONITOR
--- NOTE | 2019-11-02 11:15 | NUR ---
Patient sitting up on the side of her bed. No distress observed. Continue to monitor.
--- NOTE | 2019-11-02 13:10 | NUR ---
Patient eating. No distress observed. Contnue to monitor.
--- NOTE | 2019-11-02 15:25 | NUR ---
Patient complaing of patient's neighbors light being on. Patient is being evaluated and explained to patient that we would turn it off when we were done. Patient stated "Okay". Continue to monitor.
--- NOTE | 2019-11-02 17:00 | NUR ---
Rose, tin recovery worker called RN and asked RN to speak with patient and ask patient if it was okay for patient's nephew to get the keys from her house because the son who is the one who needs to apply for Medi-tejinder for the patient needs papers from the house. RN went to patient when she was awake and sitting up. RN asked patient if it was okay to give the keys to her nephew so her son could get paperwork and file for the Medi-tejinder. Patient states "Of Course!". RN asked the patient the name of her son. Patient stated "." RN advised Rose of consent given. RN believes patient understood what RN asked of patient.
--- NOTE | 2019-11-02 18:30 | NUR ---
Pt sitting up on edge of bed, eating dinner.
[2019-11-02] MEDS: ibuprofen 200mg tablet PO SCH (20:04)
--- NOTE | 2019-11-02 21:00 | NUR ---
Pt walking independently with walker to throw away trash and go to the bathroom. She is confused and poor historian, unable to provide details regarding her admission. She is able to request specific items and ask for assistance, but otherwise conversation was disprganized. Pt requested coffee, given decaf. Pt retired to bed shortly after dinner, needing to be woken up for her mediciations. She then awaoke a few times and talked of "coupons are good for me to read" and "I would like the red sticks." Pt able to be redirected to bed Addendum: 11/03/19 at 0125 by PATRIA SAVED NOTE TO SOON, THIS IS COMPLETED NOTE: Pt walking independently with walker to throw away trash and go to the bathroom. She is confused and a poor historian, unable to provide details regarding her admission. She is able to request specific items and ask for assistance, but otherwise conversation was disorganized. Pt requested coffee, given decaf. Pt retired to bed shortly after dinner, needing to be woken up for her mediciations. She then awoke a few times and spoke of "coupons are good for me to read" and "I would like the red sticks." Pt thought it was morning. Pt able to be redirected to bed and given PRN sleep medication to good effect. Pt has intermittent cough, lungs sounds are diminished. Mood: Confused, Pleasant; Affect: Blunted; No s/s as pt is here for GD and assitance for placement; Eye Contact: Direct. ADLs: Independent, FWW.
[2019-11-02] MEDS: QUEtiapine 25mg tablet PO PRN (21:58)
--- NOTE | 2019-11-02 23:50 | NUR ---
relieving RN for break, pt is sleeping
--- NOTE | 2019-11-03 00:37 | NUR ---
Pt sleeping on left side, breathing even and unlabored.
--- NOTE | 2019-11-03 02:18 | NUR ---
Pt awoke requesting coffee. Gently reminded her it is middle of the night and coffee would be available at breakfast, but now it is time to sleep. Pt did not respond to this RN but turned to head to the bathroom then back to bed.
--- NOTE | 2019-11-03 02:23 | NUR ---
Pt requesting yogurt. Supplied. Addendum: 11/03/19 at 0227 by PATRIA Pt changed mind and instead requested dax.
--- NOTE | 2019-11-03 05:06 | NUR ---
Pt sleeping, no distress noted.
--- NOTE | 2019-11-03 05:31 | NUR ---
Pt up to bathroom, then requested a jello.
--- NOTE | 2019-11-03 05:57 | NUR ---
Pt declining Catapres at this time, will try again shortly. PRN for Systolic BP >160. Pt's is currently 184.
[2019-11-03] MEDS: lactobacillus rhamnosus 10,000 MMU CELLS/CAPSULE PO SCH ×2 (08:00→09:14)
--- NOTE | 2019-11-03 08:00 | NUR ---
Pt awake, ambulated to restroom using front wheel walker.
[2019-11-03] MEDS: levoTHYROXINE 75mcg tablet PO SCH (08:04)
--- NOTE | 2019-11-03 08:18 | NUR ---
Pt awake and eating independently.
[2019-11-03] MEDS: duloxetine 20mg capsule.DR PO SCH (09:11)
[2019-11-03] MEDS: oxybutynin 5mg tablet PO SCH ×2 (09:12→21:27)
[2019-11-03] MEDS: risperiDONE 0.5mg tablet PO SCH ×2 (09:12→21:27)
--- NOTE | 2019-11-03 10:46 | NUR ---
Pt sleeping on L side. RR equal and nonlabored. Will Continue to monitor.
--- NOTE | 2019-11-03 11:45 | NUR ---
Pt sleeping on back. RR equal and nonlabored. Will Continue to monitor.
--- NOTE | 2019-11-03 12:30 | NUR ---
Pt asked for snack. Jell-O provided. No other needs at this time.
--- NOTE | 2019-11-03 13:25 | NUR ---
breaking primary RN, pt is in bed laying on her right side, eyes closed, regular breathing observed, will continue to monitor
--- NOTE | 2019-11-03 15:12 | NUR ---
Pt awake, sitting at bedside. No needs at this time.
--- NOTE | 2019-11-03 16:28 | NUR ---
Pt sleeping on L side. RR equal and nonlabored. Will Continue to monitor.
--- NOTE | 2019-11-03 17:34 | NUR ---
Pt resting comfortably in bed. No needs at this time. Will continue to monitor.
--- NOTE | 2019-11-03 18:40 | NUR ---
PT SITTING UP ON EDGE OF BED EATING DINNER. SHE IS REQUESTING COFFEE. SHE WAS GIVEN DECAF
[2019-11-03] MEDS: ibuprofen 200mg tablet PO SCH (21:27)
[2019-11-03] MEDS: QUEtiapine 25mg tablet PO PRN (21:27)
[2019-11-04] MEDS: cloNIDine 0.1 mg tablet PO PRN (05:05)
[2019-11-04] MEDS: lactobacillus rhamnosus 10,000 MMU CELLS/CAPSULE PO SCH ×2 (08:13→20:18)
[2019-11-04] MEDS: oxybutynin 5mg tablet PO SCH ×2 (08:14→20:19)
[2019-11-04] MEDS: duloxetine 20mg capsule.DR PO SCH (08:14)
[2019-11-04] MEDS: risperiDONE 0.5mg tablet PO SCH ×2 (08:14→20:19)
[2019-11-04] MEDS: levoTHYROXINE 75mcg tablet PO SCH (08:14)
--- NOTE | 2019-11-04 12:21 | NUR ---
Pt is awake and active in the room. Pt ambulatory with steady gait using her personal walker. Pt is asking about lunch tray. Pt informed lunch tray is pending.
--- NOTE | 2019-11-04 13:19 | NUR ---
Pt is calmly sitting on the side of the bed sipping her coffee while awaiting lunch tray to arrive. Sitter nearby.
--- NOTE | 2019-11-04 13:40 | NUR ---
Pt is eating lunch at this time. No distress noted.
--- NOTE | 2019-11-04 14:19 | NUR ---
Pt is resting in a sidelying position of comfort with her eyes closed and even and unlabored respirations.
--- NOTE | 2019-11-04 15:20 | NUR ---
Pt sleeping, no signs of distress. Pt has sitter nearby.
--- NOTE | 2019-11-04 15:24 | NUR ---
Pt is resting with her eyes closed in a position of comfort, with even and unlabored respirations. Pt has no distress noted, continuing to monitor.
--- NOTE | 2019-11-04 16:20 | NUR ---
Pt resting, no signs of distress.
--- NOTE | 2019-11-04 17:27 | NUR ---
Pt resting in a position of comfort on the bed, awakens easily. Pt denies pain or other complaints at this time.
--- NOTE | 2019-11-04 19:00 | NUR ---
Pt is resting in bed quietly. RR 16 WNL
--- NOTE | 2019-11-04 19:30 | NUR ---
Pt states she is too tired to eat dinner. Pt encouraged to try, but she just wanted to sleep.
[2019-11-04] MEDS: ibuprofen 200mg tablet PO SCH (20:00)
[2019-11-04] MEDS: QUEtiapine 25mg tablet PO PRN (20:18)
--- NOTE | 2019-11-04 20:45 | NUR ---
Pt medication compliant with HS meds. She goes back to sleep soon after.
--- NOTE | 2019-11-04 22:00 | NUR ---
Pt sleeping on L side RR 14
--- NOTE | 2019-11-05 00:39 | NUR ---
Pt asleep on back RR 16 even, unlabored
--- NOTE | 2019-11-05 01:59 | NUR ---
Patient asleep on left side. Respirations unlabored. NAD
--- NOTE | 2019-11-05 03:49 | NUR ---
PT ASLEEP RR 16 EVEN, UNLABORED
--- NOTE | 2019-11-05 05:22 | NUR ---
Pt wakes up briefly and turns to her L side.
--- NOTE | 2019-11-05 06:29 | NUR ---
Assumed care of pt. Pt is asleep on her left side in no apparent distress. Respirations are even and unlabored.
[2019-11-05] MEDS: duloxetine 20mg capsule.DR PO SCH (08:20)
[2019-11-05] MEDS: risperiDONE 0.5mg tablet PO SCH ×2 (08:20→20:02)
[2019-11-05] MEDS: lactobacillus rhamnosus 10,000 MMU CELLS/CAPSULE PO SCH ×2 (08:20→20:02)
[2019-11-05] MEDS: oxybutynin 5mg tablet PO SCH ×2 (08:20→20:02)
[2019-11-05] MEDS: levoTHYROXINE 75mcg tablet PO SCH (08:20)
[2019-11-05] MEDS: acetaminophen 325mg tablet PO PRN (08:21)
--- NOTE | 2019-11-05 08:30 | NUR ---
Pt up and eating breakfast. SHe takes each pill one at a time. Hands are shaky.
--- NOTE | 2019-11-05 11:00 | NUR ---
Pt is asleep on her right side in no apparent distress. Respirations are even and unlabored.
--- NOTE | 2019-11-05 12:45 | NUR ---
Pt up and ambulating with tech
--- NOTE | 2019-11-05 14:15 | NUR ---
Pt is asleep on her left side in no apparent distress. Respirations are even and unlabored.
--- NOTE | 2019-11-05 14:59 | NUR ---
Pt is asleep on her back in no apparent distress. Respirations are even and unlabored.
--- NOTE | 2019-11-05 15:58 | NUR ---
Pt up having a snack
--- NOTE | 2019-11-05 17:20 | NUR ---
Pt lying on her back awake in her bed.
[2019-11-05] MEDS: ibuprofen 200mg tablet PO SCH (20:02)
--- NOTE | 2019-11-05 20:15 | NUR ---
PATIENT SITTING ON SIDE OF BED EATING CRACKERS DRINKING WATER , RR EVEN UN LABORED NO OBSERVABLE S/S OF ACUTER STRESS AT THIS TIME
--- NOTE | 2019-11-05 22:30 | NUR ---
patient up sitting on side of bed eating chips drinking water rr even un labored no observable s/s of acute stress will continue to monitor
--- NOTE | 2019-11-06 00:37 | NUR ---
patient in bed covers on left side eyes closed rr even un labored no observable s/s of acute stress at this time will continue to monitor
--- NOTE | 2019-11-06 02:42 | NUR ---
patient up to rest room then back in bed covers on supine eyes closed rr even un labored no observable s/s of acute stress at this time will continue to monitor
--- NOTE | 2019-11-06 04:30 | NUR ---
patient up to throw away some paper towel trash then patient back in bed covers on lying on right side eyes closed rr even un labored no observable s/s of acute stress at this time will continue to monitor
--- NOTE | 2019-11-06 05:17 | NUR ---
patient in bed covers on supine eyes closed rr even un labored no observable s/s of acute stress at this time will continue to monitor
--- NOTE | 2019-11-06 06:29 | NUR ---
SBAR TO ALISA BENITEZ NO QUESTIONS OR CONCERNS AFTER ASSUMING CARE
[2019-11-06] MEDS: levoTHYROXINE 75mcg tablet PO SCH (07:32)
[2019-11-06] MEDS: risperiDONE 0.5mg tablet PO SCH ×2 (08:02→19:41)
[2019-11-06] MEDS: oxybutynin 5mg tablet PO SCH ×2 (08:02→19:41)
[2019-11-06] MEDS: duloxetine 20mg capsule.DR PO SCH (08:02)
--- NOTE | 2019-11-06 10:55 | NUR ---
LEANDRO PALACIO [facility] VERIFICATIONS DUE FORM PT SON TODAY LISA TO BE INVOLVED TO PRESSURE SON WHO IS FINANCIAL POA TO GET NEEDED FORMS TO [facility] FOR APPLICATION
--- NOTE | 2019-11-06 12:24 | NUR ---
PT RESTING ON LEFT SIDE, RESPIRATIONS SPONTANEOUS, EVEN, AND UNLABORED, NO S/S OF DISTRESS OR DISCOMFORT.
--- NOTE | 2019-11-06 13:16 | NUR ---
PT SITTING UP AT BEDSIDE EATING FROM LUNCH TRAY NOW.
--- NOTE | 2019-11-06 13:42 | NUR ---
Break RN; Pt resting on left side on bed. Pt awake and calm. No signs of distress.
--- NOTE | 2019-11-06 15:07 | NUR ---
PT RESTING ON LEFT SIDE, RESPIRATIONS SPONTANEOUS, EVEN, AND UNLABORED, NO S/S OF DISTRESS OR DISCOMFORT.
[2019-11-06] MEDS: acetaminophen 325mg tablet PO PRN (17:20)
--- NOTE | 2019-11-06 17:39 | NUR ---
PT VS UPDATED BY MARLA PT MEDICATED WITH TYLENOL PER PAIN, PT IS NOW LYING DOWN IN BED 22
--- NOTE | 2019-11-06 18:35 | NUR ---
ASSUMED CARE OF PT. PT SITTING UP EATING DINNER.
[2019-11-06] MEDS: ibuprofen 200mg tablet PO SCH (20:00)
--- NOTE | 2019-11-06 20:30 | NUR ---
PT IS RESTING BED AND APPEARS TO BE SLEEPING. DOES NOT APPEAR TO BE IN ANY DISTRESS. RESPIRATIONS ARE EVEN AND UNLABORED.
--- NOTE | 2019-11-06 20:30 | NUR ---
PT GOT UP TO THE BATHROOM. AMBULATED WITH WALKER AND THEN RETURNED TO BED.
--- NOTE | 2019-11-06 22:30 | NUR ---
PT WAS UP VERY CONFUSED. ASKING PEOPLE ABOUT PHONE NUMBERS FOR GIRLS FILING OR REGISTRY CLERK, TALKING ABOUT DINNER, MAKING DELUSIONAL STATEMENTS, STATING THAT ONCE SHE GOT HER KID'S THINGS SETTLE SHE WOULD GO BACK TO SLEEP. THIS RN OFFERED PT SEROQUEL TO HELP HER SLEEP BUT SHE REFUSED.
--- NOTE | 2019-11-07 00:36 | NUR ---
PT IS NOW LAYING ON HER LEFT SIDE AND APPEARS TO BE SLEEPING. DOES NOT APPEAR TO BE IN ANY DISTRESS. RESPIRATIONS ARE EVEN AND UNLABORED.
--- NOTE | 2019-11-07 03:15 | NUR ---
PT UP SITTING IN BED. THEN CAME UP TO THIS RN AND REQUESTED PAIN MEDICATION. SHE C/O KNEE PAIN. SHE CONTINUES TO BE CONFUSED. STATES THAT SHE WANTS SOMEONE TO DRIVE HER TO THE STORE TOMORROW.
[2019-11-07] MEDS: acetaminophen 325mg tablet PO PRN (03:19)
--- NOTE | 2019-11-07 05:27 | NUR ---
PT IS LAYING ON HER RIGHT SIDE AND APPEARS TO BE SLEEPING. RESPIRATIONS ARE EVEN AND UNLABORED.
[2019-11-07] MEDS: oxybutynin 5mg tablet PO SCH ×2 (08:06→19:53)
[2019-11-07] MEDS: risperiDONE 0.5mg tablet PO SCH ×2 (08:06→19:53)
[2019-11-07] MEDS: levoTHYROXINE 75mcg tablet PO SCH (08:06)
[2019-11-07] MEDS: duloxetine 20mg capsule.DR PO SCH (08:07)
--- NOTE | 2019-11-07 12:46 | NUR ---
PT SLEEPING, NO S/S OF DISTRESS NOTED.
--- NOTE | 2019-11-07 17:28 | NUR ---
PT SLEEPING, NO NOTED S/S OF DISTRESS
[2019-11-07] MEDS: ibuprofen 200mg tablet PO SCH (19:53)
--- NOTE | 2019-11-07 21:29 | NUR ---
pt is sleeping, no s/s of distress noted.
--- NOTE | 2019-11-07 23:26 | NUR ---
Pt was sleeping, awoke to blow her nose and is now sleeping again. rr unlabored, no s/s of distress noted.
--- NOTE | 2019-11-08 01:26 | NUR ---
pt is sleeping, rr unlabored, no s/s of distress noted.
--- NOTE | 2019-11-08 03:39 | NUR ---
Pt is sleeping, no s/s of distress noted.
--- NOTE | 2019-11-08 04:46 | NUR ---
pt continues to sleep, rr unlabored, no s/s of distress noted.
--- NOTE | 2019-11-08 06:44 | NUR ---
ASSUMED CARE FROM AGUSTINA BENITEZ, PT IS CURRENTLY SITTING UP EATING SNACK AND DRINKING COFFEE.
[2019-11-08 07:17] LABS: ALBUMIN 2.7 G/DL (3.4-5.0); ANION GAP 4 (8-16); BLOOD UREA NITROGEN 20 MG/DL (7-18); BUN/CREATININE RATIO 15.5 (6.6-38.0); CALCIUM 9.1 MG/DL (8.5-10.1); CHLORIDE 105 MMOL/L (99-107); CREATININE 1.29 MG/DL (0.40-0.90); GLUCOSE 75 MG/DL (70-104); POTASSIUM 4.1 MMOL/L (3.5-5.1); SODIUM 139 MMOL/L (135-145); TOTAL CARBON DIOXIDE 29.8 MMOL/L (24-32); eGFR 39 ML/MIN
[2019-11-08] MEDS: oxybutynin 5mg tablet PO SCH ×2 (07:44→20:34)
[2019-11-08] MEDS: duloxetine 20mg capsule.DR PO SCH (07:44)
[2019-11-08] MEDS: levoTHYROXINE 75mcg tablet PO SCH (07:44)
[2019-11-08] MEDS: risperiDONE 0.5mg tablet PO SCH ×2 (07:45→20:34)
--- NOTE | 2019-11-08 08:09 | NUR ---
MEDICATED PT WITH MORNING MEDICATIONS, PT IS NOT LYING ON LEFT SIDE RESTING, BREAKFAST TRAY TO ARRIVE SHORTLY. PT IN LINE OF SITE OF NURSES STATION, WILL CONTINUE TO MONITOR
--- NOTE | 2019-11-08 08:21 | NUR ---
LUNCH TRAY PLACED AT [facility], PT IS SITTING UP EATING NOW
--- NOTE | 2019-11-08 09:50 | NUR ---
PT FINISHED BREAKFAST TRAY, AND PT IS NOW SLEEPING ON LEFT SIDE, NO S/S OF DISTRESS, DISCOMFORT, OR AGITATION, PT IN LINE OF SITE OF NURSES STATION, WILL CONTINUE TO MONITOR.
--- NOTE | 2019-11-08 11:05 | NUR ---
PT GOING VIA WHEELCHAIR TO SHOWER AND OUTSIDE WITH TERRY BENDER
--- NOTE | 2019-11-08 11:21 | NUR ---
PT ROOM AND BED CLEANED WHILE SHE WAS AWAY GETTING SHOWER
--- NOTE | 2019-11-08 15:12 | NUR ---
PT SITTING UP EATING KYRA CRACKERS AND COFFEE.
--- NOTE | 2019-11-08 16:30 | NUR ---
PT IS SLEEPING ON LEFT SIDE, RESPIRATIONS SPONTANEOUS, EVEN AND UNLABORED, NO S/S OF DISTRESS, DISCOMFORT OR AGITATION, PT IN LINE OF SITE OF NURSES STATION, WILL CONTNIUE TO MONITOR
--- NOTE | 2019-11-08 17:28 | NUR ---
PT IS RESTING ON LEFT SIDE, RESPIRATIONS SPONTANEOUS, EVEN AND UNLABORED, NO S/S OF DISTRESS, DISCOMFORT OR AGITATION, PT IN LINE OF SITE OF NURSES STATION, WILL CONTNIUE TO MONITOR
--- NOTE | 2019-11-08 20:00 | NUR ---
The patient has been up on the unit. She is friendly and cooperative with staff.
[2019-11-08] MEDS: ibuprofen 200mg tablet PO SCH (20:34)
--- NOTE | 2019-11-08 22:42 | NUR ---
THe patient appears to be resting on her bed.
--- NOTE | 2019-11-09 | NUR ---
The patient appears to be sleeping
--- NOTE | 2019-11-09 03:21 | NUR ---
The patient is awake and talking with staff
--- NOTE | 2019-11-09 05:16 | NUR ---
The patient is awake and visiting with staff.
[2019-11-09] MEDS: cloNIDine 0.1 mg tablet PO PRN (05:47)
--- NOTE | 2019-11-09 06:29 | NUR ---
pt up and walking around the unit with walker this AM. calm and coopertive and pleasant.
--- NOTE | 2019-11-09 07:30 | NUR ---
Dr. Jacobsen rounding on pt.
[2019-11-09] MEDS: docusate sod 100mg capsule PO SCH (08:23)
[2019-11-09] MEDS: oxybutynin 5mg tablet PO SCH ×2 (08:23→20:10)
[2019-11-09] MEDS: risperiDONE 0.5mg tablet PO SCH ×2 (08:23→20:10)
[2019-11-09] MEDS: levoTHYROXINE 75mcg tablet PO SCH (08:23)
[2019-11-09] MEDS: duloxetine 20mg capsule.DR PO SCH (08:23)
--- NOTE | 2019-11-09 08:45 | NUR ---
pt sitting up to side of bed eating breakfast this AM. calm and cooperative.
--- NOTE | 2019-11-09 09:32 | NUR ---
resting quietly in bed, laying on left side.
--- NOTE | 2019-11-09 10:53 | NUR ---
sitting up in bed eating a snack. calm and cooperative.
--- NOTE | 2019-11-09 12:31 | NUR ---
resting quietly in bed.
--- NOTE | 2019-11-09 14:12 | NUR ---
sitting up on the side of bed eating lunch. calm and cooperative.
--- NOTE | 2019-11-09 16:18 | NUR ---
pt occationally gets up and walks around the unit. resting now quietly in her bed.
--- NOTE | 2019-11-09 17:53 | NUR ---
laying in bed calm and quiet.
--- NOTE | 2019-11-09 19:15 | NUR ---
Pt up to BR, using FWW. Eating dinner independtly and requested decaf coffee, which this RN provided. Friendly and cooperative with staff.
[2019-11-09] MEDS: QUEtiapine 25mg tablet PO PRN (20:10)
[2019-11-09] MEDS: ibuprofen 200mg tablet PO SCH (20:10)
--- NOTE | 2019-11-09 20:15 | NUR ---
Pt confused as to time of day, stating "What? These again? I had them." RN educated that it is evening and time for HS medications, letting pt know the time. Pt compliant then returned to sleep, requesting a warm blanket, which was provided.
--- NOTE | 2019-11-10 01:56 | NUR ---
Pt sleeping, no distress noted.
--- NOTE | 2019-11-10 03:43 | NUR ---
Pt sleeping. Breathing even and unlabored.
--- NOTE | 2019-11-10 07:43 | NUR ---
Received Pt in bed sleeping w/o distress at beginning of shift, and she remains asleep.
[2019-11-10] MEDS: levoTHYROXINE 75mcg tablet PO SCH (08:30)
[2019-11-10] MEDS: oxybutynin 5mg tablet PO SCH ×2 (08:30→20:06)
[2019-11-10] MEDS: duloxetine 20mg capsule.DR PO SCH (08:31)
[2019-11-10] MEDS: risperiDONE 0.5mg tablet PO SCH ×2 (08:31→20:06)
[2019-11-10] MEDS: docusate sod 100mg capsule PO SCH (08:31)
--- NOTE | 2019-11-10 09:54 | NUR ---
Director Vianca, came to let us know that Dr Cuadra has agreed to admit pt upstairs to facilitate transfer to SNF, this will probalby not happen until Wednesday11/13/2019
--- NOTE | 2019-11-10 14:00 | NUR ---
Pt remains pleasant and cooperative. Using bathroom independently and conversing with staff intermitently. Ate lunch w/o issue and asked for a cup of coffee; decaf given.
--- NOTE | 2019-11-10 18:35 | NUR ---
Pt sitting up, eating dinner. Requested coffee, a cup of decaf was granted.
[2019-11-10] MEDS: ibuprofen 200mg tablet PO SCH (20:06)
[2019-11-10] MEDS: QUEtiapine 25mg tablet PO PRN (20:06)
--- NOTE | 2019-11-10 20:10 | NUR ---
Pt requested coffee for medication pass. Compliant with adminstration, then this RN assisted in repositioning pillows and giving pt a warm blanket.
--- NOTE | 2019-11-10 22:00 | NUR ---
Pt sleeping on left side, no distress noted. Pt given bag of cheetos at bedside per earlier request from pt.
--- NOTE | 2019-11-11 00:04 | NUR ---
Pt sleeping, breathing even and unlabored. Intermittent position changes.
--- NOTE | 2019-11-11 03:00 | NUR ---
Pt sleeping on left side.
--- NOTE | 2019-11-11 04:45 | NUR ---
Pt up to bathroom then returned to have some cheetos at bedside.
--- NOTE | 2019-11-11 05:13 | NUR ---
Pt went back to sleep.
--- NOTE | 2019-11-11 06:33 | NUR ---
Patient sleeping on left side eating snacks. No s/s of distress noted.
[2019-11-11] MEDS: duloxetine 20mg capsule.DR PO SCH (08:27)
[2019-11-11] MEDS: docusate sod 100mg capsule PO SCH (08:27)
[2019-11-11] MEDS: risperiDONE 0.5mg tablet PO SCH ×2 (08:27→19:28)
[2019-11-11] MEDS: oxybutynin 5mg tablet PO SCH ×2 (08:27→19:28)
[2019-11-11] MEDS: levoTHYROXINE 75mcg tablet PO SCH (08:28)
--- NOTE | 2019-11-11 09:08 | NUR ---
Patient has been eating breakfast, now resting on her left side. No s/s of distress noted.
--- NOTE | 2019-11-11 11:06 | NUR ---
Pt. sitting up in bed drinking Ensure. Patient is calm and cooperative. Walks with walker to restroom and back.
--- NOTE | 2019-11-11 13:24 | NUR ---
Patient sitting up eating up at lunch at bedside.
--- NOTE | 2019-11-11 15:36 | NUR ---
Patient ambulated to the restroom with walker then back to bed.
--- NOTE | 2019-11-11 16:46 | NUR ---
Patient is sitting up in bed. No s/s of distress noted. Patient ambulates with FWW around unit.
[2019-11-11 17:46] VITALS: BP 217/99
--- NOTE | 2019-11-11 18:25 | NUR ---
Note ushavel in ED - 11/11/19 at 1826 by ROSALVA Patient continues with seizure activity. Pt. has had 5 seizures in the past 1 hr lasting approximately [address] of head will be performed and patient will be transferred to main ER.
[2019-11-11] MEDS: ibuprofen 200mg tablet PO SCH (19:27)
--- NOTE | 2019-11-12 01:42 | NUR ---
Assumed care of pt. Pt sleeping on left side, no distress noted.
--- NOTE | 2019-11-12 02:29 | NUR ---
Pt awoke requesting coffee. Redirected back to bed and informed pt of the time.
--- NOTE | 2019-11-12 02:35 | NUR ---
Pt sitting in bed, eating snack.
== END | disposition home or self-care (01) ==
LOC: ER 14:56
DX: R94.6 Abnormal results of thyroid function studies (principal); F79 Unspecified intellectual disabilities; F17.200 Nicotine dependence, unspecified, uncomplicated; Z60.2 Problems related to living alone; Z79.899 Other long term (current) drug therapy
CPT/HCPCS: 36415; 80048; 80053; 80305; 80320; 81001; 84443; 85025; 87077; 87088; 87186; 87502; 87503; 93005; 99285; Q0163; J2060; J3410; Z7610